=== PATIENT | female | born 1995 | race Caucasian/White ===

== ENCOUNTER 2024-01-22 09:50 | Outpatient (CLI) | payer MEDICAID, SELFPAY ==
[2024-01-22 18:24] LABS: Estradiol 69 pg/mL (See Note)
[2024-01-22 18:42] LABS: FSH 6.3 mIU/mL (See Note); Prolactin 7.9 ng/mL (See Note)
[2024-01-25 10:20] LABS: DHEA Sulfate 257 ug/dL (96-512)
[2024-01-25 19:39] LABS: Antimullerian Hormone 6.5 ng/mL (0.89-9.9)
[2024-01-29 12:36] LABS: Testosterone, Free 0.85 ng/dL (<0.13-1.06); Testosterone, Total 51 ng/dL (8-60)
== END 2024-01-22 09:51 | disposition home or self-care (01) ==
LOC: LBO 09:52
PROVIDERS: Visit Provider Obstetrics & Gynecology Gynecology
DX: N91.5 Oligomenorrhea, unspecified (principal); L68.0 Hirsutism
CPT/HCPCS: 36415; 82627; 84402; 84403; 82670; 83001; 83520; 84146; 84443

== ENCOUNTER 2024-08-24 05:02 | Outpatient (CLI) | payer MEDICAID, SELFPAY ==
[2024-08-24 15:09] LABS: Panorama Kit Sent via Fed Ex
[2024-08-24 15:25] LABS: Abs Immature Grans 0.03 10^3/uL (0.0-0.06); Absolute Basophil Count 0.02 10^3/uL (0.0-0.2); Absolute Eosinophil Count 0.22 10^3/uL (0.0-0.7); Absolute Lymphocyte Count 1.78 10^3/uL (1.2-3.4); Absolute Monocyte Count 0.48 10^3/uL (0.1-0.8); Absolute Neutrophil Count 5.99 10^3/uL (1.2-6.7); Basophils % 0.2 %; Eosinophils % 2.6 %; HGB 11.9 g/dL (11.2-15.7); Immature Grans % 0.4 %; Lymphocytes % 20.9 %; MCH 31.4 pg (27.0-33.0); MCV 92 fL (80-95); MPV 8.9 fL (8.0-11.0); Monocytes % 5.6 %; Neutrophils % 70.3 %; Platelet Count 257 10^3/uL (130-400); RBC 3.79 10^6/uL (3.93-5.22); RDW 12.2 % (11.7-14.6); RDW-SD 41.1 fL; WBC 8.52 10^3/uL (4.4-10.8)
[2024-08-24 23:04] LABS: Hepatitis B Surface Ag Negative (Negative)
[2024-08-24 23:36] LABS: HIV-1/2 Ag & Ab Screen Negative (Negative)
[2024-08-24 23:42] LABS: Hepatitis C Ab w Rflx HCV PCR Negative (Negative)
[2024-08-25 10:35] LABS: Varicella IgG Antibody Positive (See Note)
[2024-08-25 10:36] LABS: Rubella IgG Ab (UVM) Negative (See Note)
[2024-08-26 14:11] LABS: Syphilis IgG w/Reflex Nonreactive (Nonreactive)
== END 2024-08-24 05:03 | disposition home or self-care (01) ==
LOC: LBO 05:02
PROVIDERS: Visit Provider Advanced Practice Midwife
DX: Z34.91 Encounter for supervision of normal pregnancy, unspecified, first trimester (principal)
CPT/HCPCS: 36415; 86787; 86803; 86850; 86900; 86901; 87340; 87389; 85025; 86762; 86780

== ENCOUNTER 2024-08-24 14:55 | Outpatient (REF) | payer MEDICAID, SELFPAY ==
[2024-08-25 12:51] LABS: Chlamydia Result Negative (Negative); GC Result Negative (Negative)
== END 2024-08-24 14:56 | disposition home or self-care (01) ==
LOC: LBN 14:55
PROVIDERS: Visit Provider Advanced Practice Midwife
DX: Z34.81 Encounter for supervision of other normal pregnancy, first trimester (principal)
CPT/HCPCS: 87491; 87591

== ENCOUNTER 2024-09-06 00:52 | Outpatient (CLI) | payer MEDICAID, SELFPAY ==
--- NOTE | 2024-09-06 07:55 | DI.US_ITS ---
Exam(s) US OB F/U FACIAL/LVOT/RVOT EXAM: US OB F/U FACIAL/LVOT/RVOT CLINICAL HISTORY: , size greater than dates,z34.90. TECHNIQUE: Transabdominal obstetrical ultrasound performed. COMPARISON: US POCUS EXAM from 06/30/2024 US POCUS EXAM from 07/25/2024 FINDINGS:: Number of fetuses: 1 position: CEPHALIC Placental location: ANTERIOR No evidence of previa. BIOMETRIC DATA: BPD: 3.02cm, 15weeks 4days HC: 11.33cm, 15weeks 4days AC: 8.35cm, 14weeks 5days FL: 1.61cm, 14weeks 5days EFW: 107.1g, 0.24lb, 53% Composite Age: 15weeks 1day KRISTINE: 02[birth year]27[birth year]25 Heart Rate: 142bpm Amniotic fluid: Visually, amount of fluid is within normal limits. IMPRESSION: size and weight are within the expected range. DATA REPOSITORY:
== END 2024-09-06 01:12 ==
LOC: DI 00:52
PROVIDERS: Visit Provider Advanced Practice Midwife
DX: Z34.82 Encounter for supervision of other normal pregnancy, second trimester (principal); Z3A.15 15 weeks gestation of pregnancy
CPT/HCPCS: 76815

== ENCOUNTER 2024-09-09 02:33 | Outpatient (CLI) | payer MEDICAID, SELFPAY ==
--- OUTSIDE RECORDS SUMMARY | 2024-09-09 02:43 | XMS_ITS | Encounter Summary ---
Author Organization [facility] Address [address] [place] [address] Care Team Providers Care Printed Circuit Layout Taper Name Role Phone Unknown, Provider MD Primary Care Provider Tom Edwards MD Unavailable Unavailable Encounter Details Date Type Department Care Team (Late st Contact Info) Description 08/24/2024 Lab Requisition [facility] Pathology & Laboratory Medicine - [address] [address] Outr Resulting Lab, Provider Social History Tobacco Use Types Packs/Day Years Used Date Smoking Tobacco: Never Assessed Interpersonal Safety Answer Date Record ed Physically Hurt Never 06/14/2020 Verbally Threaten Not on file 06/14/2020 Sex and Gender Information Value Date Recorded Sex Assigned at Not on file Gender Identity Not on file Sexual Orientation Not on file documented as of this encounter Plan of Treatment Not on file documented as of this encounter Procedures Procedure Name Priority Date/Time Associated Diagnosis Comments RUBELLA IGG ANTIBODY Routine 08/24/2024 15:02 EDT VARICELLA IGG ANTIBODY Routine 08/24/2024 15:02 EDT documented in this encounter Results * VARICELLA IGG ANTIBODY (08/24/2024 15:02 EDT) Varicella IgG Ab Positive See Note 08/25/2024 10:29 EDT [facility] Comment:Presence of detectab le Varicella Zoster virus IgG antibodies. Blood VENOUS BLOOD / Unknown 08/24/2024 15:02 EDT 08/24/2024 21:52 EDT Provider Outr Resulting Lab IMMUNOLOGY A ND SEROLOGY ORDERABLES Performing Organization Address [facility] Co de Phone Number [facility] [address] [place], [place] [phone] * RUBELLA IGG ANTIBODY (08/24/2024 15:02 EDT) Rubella IgG Ab Negative See Note 08/25/2024 10:31 EDT [facility] Comment:Sample is considered negative for IgG antibodies to Rubella virus. A negative result presumes that immunity has not been acquired. If exposure to Rubella virus is suspected despite a negative finding, a second specimen should be collected and tested for Rubella IgG Ab one or two weeks later. Blood VENOUS BLOOD / Unknown 08/24/2024 15:02 EDT 08/24/2024 21:52 EDT Provider Outr Resulting Lab CHEMISTRY & BLOOD GAS ORDERABLES Performing Organization Address [facility] Co de Phone Number [facility] [address] [place], [place] [phone] documented in this encounter Visit Diagnoses Not on filedocumented in this encounter Care Teams Printed Circuit Layout Taper Relationship Specialty Start Date End Date Unknown, Provider, PCP - General 11/09/19 Tom Teague MD 11/09/19 documented as of this encounter
--- OUTSIDE RECORDS SUMMARY | 2024-09-09 02:43 | XMS_ITS | Encounter Summary ---
Author Organization [facility] Address [address] [place] [address] Care Team Providers Care Inserter Operator Name Role Phone Unknown, Provider MD Primary Care Provider Tom Edwards MD Unavailable Unavailable Encounter Details Date Type Department Care Team (Late st Contact Info) Description 08/24/2024 Lab Requisition [facility] Pathology & Laboratory Medicine - [address] [address] Outr Resulting Lab, Provider Social History Tobacco [...] Procedure Name Priority Date/Time Associated Diagnosis Comments CHLAMYDIA/N. GONORRHOEAE AMPLIFIED NUCLEIC ACID Routine 08/24/2024 14:20 EDT documented in this encounter Results * CHLAMYDIA/N. GONORRHOEAE AMPLIFIED NUCLEIC ACID (08/24/2024 14:20 EDT) Neisseria gonorrhoeae Result Negative Negative 08/25/2024 12:46 EDT [facility] Chlamydia trachomatis Result Negative Negative 08/25/2024 12:46 EDT [facility] Swab VAGINAL STRUCTURE / Unknown 08/24/2024 14:20 EDT 08/24/2024 23:31 EDT Provider Outr Resulting Lab MICROBIOLOGY - GENERAL ORDERABLES [facility] [address] [place] [address] documented in this encounter Visit Diagnoses Not on filedocumented in this encounter Care Teams Inserter Operator Relationship Specialty Start Date End Date Unknown, Provider, PCP - General 11/09/19 Tom Teague MD 11/09/19 documented as of this encounter
--- OUTSIDE RECORDS SUMMARY | 2024-09-09 02:43 | XMS_ITS | Encounter Summary ---
Author Organization [facility] Address [address] [place] [address] Care Team Providers Care Quahogger Name Role Phone Unknown, Provider Primary Care Provider Tom Edwards MD Unavailable Unavailable Encounter Details Date Type Department Care Team (Late st Contact Info) Description 06/11/2020 Lab Requisition [facility] Pathology & Laboratory Medicine - [facility] [address] [place] [address] Tom Busby MD [address] [place] [id number] Disorder of the skin and subcutaneous tissue, unspecified Social History Tobacco Use Types Packs/Day Years [...] Procedure Name Priority Date/Time Associated Diagnosis Comments SURGICAL PATHOLOGY Today 06/08/2020 16 :00 EDT documented in this encounter Results * SURGICAL PATHOLOGY (06/08/2020 16:00 EDT) Final Diagnosis A. SKIN OF SCALP, LEFT, EXCISION : - Lobular capillary hemangioma (pyogenic granuloma). [facility] Attestation By the signature below, the attending physician certifies that they have 1) personally conducted a gross and/or microscopic examination of the described specimen(s), and/or personally interpreted the results of laboratory testing of the described specimen(s), and 2) personally rendered or confirmed the above diagnosis. 06/13/2020 11:23 [facility] at 1123 Clinical History Disorder of the skin and subcutaneous tissue, unspecified, left scalp skin lesion 06/13/2020 11:23 [facility] Gross Description A. Received in formalin labelled with proper patient identification (initials D, S) and not otherwise specified is an unoriented elliptical excision of varma-white hair-bearing skin (1.0 x 0.7 cm, and is excised to a depth of 0.4 cm). There is a central white-bernal waxy rubbery papule (0.5 x 0.5 x 0.3 cm) located on the skin surface. The margins are inked blue. The tissue is quadrisected and entirely submitted as A1 tips, reverse en face and A2 central sections. Angela Muse 06/12/2020 8:37 06/13/2020 11:23 [facility] Performing Lab [facility] 06/13/2020 11:23 [facility] Scanned Images 06/13/2020 11:23 [facility] Tissue TISSUE SPECIMEN FROM SKIN / Unknown 06/08/2020 16:00 EDT 06/11/2020 23:05 EDT Tom Busby MD PATHOLOGY ASHLEY MARTINE[facility] [address] [place] [address] documented in this encounter Visit Diagnoses Diagnosis Disorder of the skin and subcutaneous tissue, unspecified documented in this encounter Care Teams Quahogger Relationship Specialty Start Date End Date Unknown, Provider, PCP - General 11/09/19 Tom Teague MD 11/09/19 documented as of this encounter
--- OUTSIDE RECORDS SUMMARY | 2024-09-09 02:43 | XMS_ITS | Encounter Summary ---
Author Organization [facility] Address [address] [place] [address] Care Team Providers Care Spooling Operator Name Role Phone Unknown, Provider MD Primary Care Provider Tom Edwards MD Unavailable Unavailable Encounter Details Date Type Department Care Team (Late st Contact Info) Description 02/18/2023 Lab Requisition [facility] Pathology & Laboratory Medicine - [address] [address] Outr Resulting Lab, Provider Social History Tobacco [...] Procedure Name Priority Date/Time Associated Diagnosis Comments MOLECULAR VAGINITIS/VAGINOSIS ASSAY Routine 02/18/2023 17:35 EDT documented in this encounter Results * (ABNORMAL) MOLECULAR VAGINITIS/VAGINOSIS ASSAY (02/18/2023 17:35 EDT) Alysha Species Positive(A) Negative 02/20/20 13:07 EDT [facility] Alysha glabrata Negative Negative 02/19/2023 13:07 EDT [facility] Trichomonas Vaginalis Negative Negative 02/19/2023 13:07 EDT [facility] BV (Bacterial vaginosis) Positive(A) Negative 02/19/2023 13:07 EDT [facility] Swab ENTIRE VAGINA / Unknown 02/18/2023 17:35 EDT 02/18/2023 22:51 EDT Provider Outr Resulting Lab MICROBIOLOGY - GENERAL ORDERABLES Performing Organization Address City/State/[facility] Co de Phone Number [facility] [address] [place] [address] documented in this encounter Visit Diagnoses Not on filedocumented in this encounter Care Teams Spooling Operator Relationship Specialty Start Date End Date Unknown, Provider, PCP - General 11/09/19 Tom Teague MD 11/09/19 documented as of this encounter
--- OUTSIDE RECORDS SUMMARY | 2024-09-09 02:43 | XMS_ITS | Encounter Summary ---
Author Organization [facility] Address [address] [place] [address] Care Team Providers Care Tiedown Operator Name Role Phone Unknown, Provider MD Primary Care Provider Tom Edwards MD Unavailable Unavailable Encounter Details Date Type Department Care Team (Late st Contact Info) Description 02/26/2021 Lab Requisition [facility] Pathology & Laboratory Medicine - [address] [address] Outr Resulting Lab, Provider Social History Tobacco [...] Procedure Name Priority Date/Time Associated Diagnosis Comments ZZCOVID-19 TEST [facility] PCR Today 02/26/2021 10:22 EDT COVID-19 TESTING Routine 02/26/2021 10:2 2 EDT documented in this encounter Results * COVID-19 TEST [facility] PCR (02/26/2021 10:22 EDT) Swab ENTIRE NASOPHARYNX / Unknown 02/26/2021 10:22 EDT 02/26/2021 16:21 EDT Provider Outr Resulting Lab MICROBIOLOGY - GENERAL ORDERABLES [facility] [address] [place] [address] * COVID-19 TESTING (02/26/2021 10:22 EDT) COVID-19 rt-PCR Result Negative Negative 02/27/2021 12:45 EDT [facility] Comment: This test has not been FDA cleared or approved. This test has been authorized by FDA under an EUA for use by authorized laboratories. This test has been authorized only for detection of nucleic acid from 2019-nCoV, not for any other viruses or pathogens. This test is only authorized for the duration of the declaration that circumstances exist justifying the authorization of emergency use of in vitro diagnostic tests for detection and/or diagnosis of 2019-nCoV under section 564(b)(1) of Act, 21 U.S.C ?? 360bbb-3(b) (1), unless the authorization is terminated or revoked sooner. Negative results do not preclude 2019-nCoV infection and should not be used as the sole basis for treatment or other patient management decisions. Negative results must be combined with clinical observations, patient history, and epidemiological information. Testing was performed using the matheus SARS-CoV-2 assay (Sara Wuhan [employer] on the Matheus 6800 System Performing Lab [facility]us 68[address] [facility] 02/27/2021 12:45 EDT [facility] Swab 02/26/2021 10:2 2 EDT 02/26/2021 16:21 EDT Provider Outr Resulting Lab MICROBIOLOGY - GENERAL ORDERABLES [facility] [address] [place] [address] documented in this encounter Visit Diagnoses Not on filedocumented in this encounter Care Teams Tiedown Operator Relationship Specialty Start Date End Date Unknown, Provider, PCP - General 11/09/19 Tom Teague MD 11/09/19 documented as of this encounter
--- OUTSIDE RECORDS SUMMARY | 2024-09-09 02:43 | XMS_ITS | Encounter Summary ---
Author Organization [facility] Address [address] [place] [address] Care Team Providers Care Kerrick Kleaner Operator Name Role Phone Unknown, Provider MD Primary Care Provider Tom Edwards MD Unavailable Unavailable Encounter Details Date Type Department Care Team (Late st Contact Info) Description 08/24/2024 Lab Requisition [facility] Pathology & Laboratory Medicine - [address] [address] Outr Resulting Lab, Provider Social History Tobacco [...] Procedure Name Priority Date/Time Associated Diagnosis Comments HEPATITIS C AB W REFLEX TO HCV RNA BY PCR Routine 08/24/2024 15:02 EDT HEPATITIS B SURFACE ANTIGEN Routine 08/24/2024 15:02 EDT documented in this encounter Results * HEPATITIS B SURFACE ANTIGEN (08/24/2024 15:02 EDT) Hep B Surface Ag Negative Negative 08/24/2024 22:58 EDT [facility] Blood VENOUS BLOOD / Unknown 08/24/2024 15:02 EDT 08/24/2024 21:52 EDT Provider Outr Resulting Lab CHEMISTRY & BLOOD GAS ORDERABLES Performing Organization Address City/[facility]/ZIP Co de Phone Number [facility] [address] [place], [place] [phone] * HEPATITIS C AB W REFLEX TO HCV RNA BY PCR (08/24/2024 15:02 EDT) Hep C Antibody Negative Negative 08/24/2024 23:38 EDT [facility] Blood VENOUS BLOOD / Unknown 08/24/2024 15:02 EDT 08/24/2024 21:52 EDT Provider Outr Resulting Lab CHEMISTRY & BLOOD GAS ORDERABLES Performing Organization Address City/[facility] Co de Phone Number [facility] [address] [place] [address] documented in this encounter Visit Diagnoses Not on filedocumented in this encounter Care Teams Kerrick Kleaner Operator Relationship Specialty Start Date End Date Unknown, Provider, PCP - General 11/09/19 Tom Teague MD 11/09/19 documented as of this encounter
--- OUTSIDE RECORDS SUMMARY | 2024-09-09 02:43 | XMS_ITS | Encounter Summary ---
Author Organization [facility] Address [address] [place] [address] Care Team Providers Care Proof Machine Operator Name Role Phone Unknown, Provider MD Primary Care Provider Tom Edwards MD Unavailable Unavailable Encounter Details Date Type Department Care Team (Late st Contact Info) Description 10/15/2021 Lab Requisition [facility] Pathology & Laboratory Medicine - [address] [address] Outr Resulting Lab, Provider Social History Tobacco [...] Comments ZZCOVID-19 TEST [facility] PCR Today 10/15/2021 13:36 EST COVID-19 TESTING Routine 10/15/2021 13:3 6 EST documented in this encounter Results * COVID-19 TEST [facility] PCR (10/15/2021 13:36 EST) Swab 10/15/2021 13:3 6 EST 10/15/2021 20:54 EST Provider Outr Resulting Lab MICROBIOLOGY - GENERAL ORDERABLES Performing Organization Address [facility] Co de Phone Number [facility] [address] [place] [address] * COVID-19 TESTING (10/15/2021 13:36 EST) COVID-19 rt-PCR Result Negative Negative 10/16/2021 15:[address] [facility] Comment: This test has [...] clinical observations, patient history, and epidemiological information. This test was developed and its performance characteristics determined by [facility]. It has not been cleared or approved by the US Food and Drug Administration. FDA does not require this test to go through premarket FDA review. This test is used for clinical purposes. It should not be regarded as investigational or for research. This laboratory is certified under the Clinical Laboratory Improvement Amendments (CLIA) as qualified to perform high complexity clinical laboratory testing. This test is based on the [facility] COVID-19 Emergency Use Authorization (EUA) assay, with minor modification as defined by the FDA Performed on the [employer] 7 Flex RT-PCR System. Performing Lab [facility] 10/16/2021 15:[address] [facility] Swab 10/15/2021 13:3 6 EST 10/15/2021 20:54 EST Provider Outr Resulting Lab MICROBIOLOGY - GENERAL ORDERABLES Performing Organization Address [facility]/ZIP Co de Phone Number [facility] [address] [place] [address] documented in this encounter Visit Diagnoses Not on filedocumented in this encounter Care Teams Proof Machine Operator Relationship Specialty Start Date End Date Unknown, Provider, PCP - General 11/09/19 Tom Teague MD 11/09/19 documented as of this encounter
--- OUTSIDE RECORDS SUMMARY | 2024-09-09 02:43 | XMS_ITS | Encounter Summary ---
Author Organization [facility] Address [address] [place] [address] Care Team Providers Care Vessel Operator Name Role Phone Unknown, Provider MD Primary Care Provider Tom Edwards MD Unavailable Unavailable Encounter Details Date Type Department Care Team (Late st Contact Info) Description 12/29/2019 Lab Requisition [facility] Pathology & Laboratory Medicine - [facility] [address] [place] [address] Unknown, Provider, Social History Tobacco Use Types Packs/Day Years Used Date Smoking Tobacco: Never Assessed Sex and Gender Information Value Date Recorded Sex Assigned at Not on file Gender Identity Not on file Sexual Orientation Not on file documented as of this encounter Plan of Treatment Not on file documented as of this encounter Procedures Procedure Name Priority Date/Time Associated Diagnosis Comments CHLAMYDIA/N. GONORRHOEAE AMPLIFIED NUCLEIC ACID Routine 12/29/2019 17:40 EST documented in this encounter Results * CHLAMYDIA/N. GONORRHOEAE AMPLIFIED RNA (12/29/2019 17:40 EST) Neisseria gonorrhoeae Result Negative Negative 12/30/2019 13:26 EST [facility] Chlamydia trachomatis Result Negative Negative 12/30/2019 13:26 EST [facility] Swab ENTIRE VAGINA / Unknown 12/29/2019 17:40 EST 12/29/2019 21:43 EST Provider Unknown MICROBIOLOGY - GENER AL ORDERABLES [facility] [address] [place] [address] documented in this encounter Visit Diagnoses Not on filedocumented in this encounter Care Teams Vessel Operator Relationship Specialty Start Date End Date Unknown, Provider, PCP - General 11/09/19 Tom Teague MD 11/09/19 documented as of this encounter
--- OUTSIDE RECORDS SUMMARY | 2024-09-09 02:43 | XMS_ITS | Encounter Summary ---
Author Organization [facility] Address [address] [place] [address] Care Team Providers Care Production Dispatcher Name Role Phone Unknown, Provider Primary Care Provider Tom Edwards MD Unavailable Unavailable Encounter Details Date Type Department Care Team (Late st Contact Info) Description 08/24/2024 Lab Requisition [facility] Pathology & Laboratory Medicine - [address] [address] Outr Resulting Lab, Provider Social History Tobacco [...] Procedure Name Priority Date/Time Associated Diagnosis Comments HIV 1/2 ANTIGEN AND ANTIBODY, 4TH GENERATION Routine 08/24/2024 15:02 EDT documented in this encounter Results * HIV 1/2 ANTIGEN AND ANTIBODY, 4TH GENERATION (08/24/2024 15:02 EDT) HIV 1 and 2 Antibody/p24 Antigen, 4th Generation Negative Negative 08/24/2024 23:31 EDT [facility] Comment:If acute HIV-1 infec tion is suspected in a high risk patient, submit plasma specimen for HIV-1 RNA quantitation test. Blood VENOUS BLOOD / Unknown 08/24/2024 15:02 EDT 08/24/2024 21:52 EDT Narrative [facility] - 08/24/2024 23:31 EDT Fourth Generation assay performed on the Siemens Aiotraaur XPT. Provider Outr Resulting Lab IMMUNOLOGY A ND SEROLOGY ORDERABLES [facility] [address] [place], [place] [phone] documented in this encounter Visit Diagnoses Not on filedocumented in this encounter Care Teams Production Dispatcher Relationship Specialty Start Date End Date Unknown, Provider, PCP - General 11/09/19 Tom Teague MD 11/09/19 documented as of this encounter
--- OUTSIDE RECORDS SUMMARY | 2024-09-09 02:43 | XMS_ITS | Continuity of Care Document ---
Author Name [facility] Organization [facility] Care Team Providers Care Library Science Instructor Name Role Phone [facility] Unavailable Unavailable Problems Combined list of problems from Department of Defense and Veterans Affairs facilities. It does not include entries that were removed or entered in error. Problem Status Onset Date Problem Type Date of Resolution Comme nts Source oligomenorrhea Active Condition DoD Allergies, Adverse Reactions, Alerts Combined list of allergies from Department of Defense and Veterans Affairs facilities. It does not include entries that were removed or entered in error. Substance Category Reaction Severity Reaction type Status Date Reported Comments Source amoxicillin Propensity to adverse reactions to substance Rash Active [facility] AMOXICILLIN (AMOXICILLIN) Drug allergy (disorder) Rash active 5 [facility] [place] penicillins Propensity to adverse reactions to substance Rash Active 5 [facility] PENICILLINS {Cla } Drug allergy (disorder) Rash active 5 [facility] [place] SULFA (SULFONAMIDE ANTIBIOTICS) {Cla } Drug allergy (disorder) Rash active 5 [facility] [place] sulfonamides Propensity to adverse reactions to substance Rash Active 5 [facility] Immunizations Combined list of available immunizations from the Department of Defense and Veterans Affairs facilities. Immunization Series Date Given Administered By Site Reaction Lot Number CVX Code Drug Roof Foreman Status Comments Source influenza,tri valent, recombinant, inj-pf 2015 zBentley ht Arm [id number] Seqirus complet ed influenza ,trivalen t, recombina nt, inj-pf 09/30/16 Given Ambulat ory Pharmac y tetanus, diphtheria, acellular pertu is 2015 Yareli t Arm [id number] 115 [facility] ne complet ed tetanus, diphtheri a, acellular pertussis 09/30/16 Given Ambulat ory Pharmac y tetanus toxoid, reduced diphtheria toxoid, and acellular pertu is vaccine, adsorbed 0 2015 NIEVES EMERSON [id number] [facility] Smith[employer]line (SKB) complet ed tetanus toxoid, reduced diphtheri a toxoid, and acellular pertussis vaccine, adsorbed DoD Seasonal, trivalent, recombinant, injectable influenza vaccine, preservative free 0 2015 NIEVES EMERSON [id number] Seqirus (SEQ) complet ed Seasonal, trivalent , recombina nt, injectabl e influenza vaccine, preservat susannah free DoD Vital Signs Combined list of inpatient and outpatient Vital Signs from Department of Defense and Veterans Affairs, ranging from 12 months to all on record, depending upon the facility. Vital Sign Value Date Comments Source No data available for this section Ambulatory Pharmacy Encounters Combined list of: 1) Encounters from Department of Veterans Affairs facilities going back up to thelast 18 months. 2) Encounters from the Department of Defense facilities going back up to 280 months. Location Location Details Encounter Type Encounter Number Reason For Visit Attending Provider ADM Date DC Date Status Disposition Source [facility] [place]iel [place] OUTPATIENT [id number] [facility] Jose [facility] DODIE BERNSTEIN 02/13 Released w/o Limitations [facility] [place] [facility] [place] TELE CONSULT [id number] Notes Entered by: Puneet MORALEZ 30 Apr 2015 1021 ------- ------- ------- ------- -- [facility] Bernstein/ [facility] DODIE BERNSTEIN 04/30 [facility] [place]) OUTPATIENT [id number] [facility] Jose/i rregula r juan jos[facility] DODIE BERNSTEIN 05/08 Released w/o Limitations [facility] [place] [facility] [place] TELE CONSULT [id number] Notes Entered by: Maira NICHOLS 17 May 2015 1302 ------- ------- ------- ------- -- [facility] Valdez 05/17 Referred for Appointment [facility] [place] [facility] [place] Talent Acquisition Partner at [facility]) OUTPATIENT [id number] The time between periods has increas ed (oligom enorrhe a) TORI MASON T 05/25 Released w/o Limitations [facility] [place] at [facility]) [facility] [place]quisition Partner at [facility]) OUTPATIENT [id number] 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 TORI MASON T 06/26 Released w/o Limitations [facility] [place] at [facility]) [facility] [place] at [facility]) OUTPATIENT [id number] 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 TORI MASON T 07/26 Released w/o Limitations [facility] [place] at [facility]) [facility] [place] Partner at [facility]) TELE CONSULT [id number] Notes Entered by: DELMI NATARAJAN 01 Aug 2015 0839 ------- ------- ------- ------- -- current medicat ion ineffec tive TORI MASON T 08/01 [facility] [place]) [facility] [place] Partner at [facility]) OUTPATIENT [id number] follow up regional agronomist MICHAEL GOMEZ O 08/30 Released w/o Limitations [facility] [place] at [facility]) [facility] [place] Acquisition Partner at [facility]) TELE CONSULT [id number] Notes Entered by: FRANK MOORE 10 Sep 2015 0749 ------- ------- ------- ------- -- request ing medicat MICHAEL Clay O 09/10 [place]quisition Partner at [facility]) [place] Partner at [facility]) OUTPATIENT [id number] 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 MICHAEL GOMEZ O 12/06 Released w/o Limitations [place]) [place] TELE CONSULT [id number] Notes Entered by: Bisi TOVAR 31 Jan 2016 0813 ------- ------- ------- ------- -- [facility] LAVON NICHOLS S 01/30 Referred for Appointment [place] TELE CONSULT [id number] Notes Entered by: SUPA SUTTON 31 Jan 2016 1052 ------- ------- ------- ------- -- patient needs an updated referra l for ongoing care with the ob clinic at [facility]. LAVON NICHOLS S 01/30 Referred for Appointment [place] at [facility]) OUTPATIENT [id number] 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 - inferti MICHAEL Christianson O 02/07 Released w/o Limitations [facility] [place]) [facility] [place]quisition Partner at [facility]) OUTPATIENT [id number] MICHAEL RAZA O 02/13 Released w/o Limitations [place]quisition Partner at [facility]) [place] Partner at [facility]) OUTPATIENT [id number] ultraso und (book per Richy de luna) MICHAEL GOMEZ 02/27 Released w/o Limitations [place]) [place] TELE CONSULT [id number] Notes Entered by: MAURA BERRIOS 24 Mar 2016 0750 ------- ------- ------- ------- -- PCM:MARNIE BARRIENTOS Pt called request [facility] labs to confirm pregnan cy. LAVON NICHOLS 03/24 Referred for Appointment [place] F01A Red) [place] F01A Red) TELE CONSULT [id number] Notes Entered by: Miya BERNSTEIN 25 Mar 2016 1800 ------- ------- ------- ------- -- LAB CARLA MORALEZ 03/25 Immediate Referral [place] F01A Red) [place]quisition Partner at [facility]) TELE CONSULT [id number] Notes Entered by: Ervin BROWNLEE 27 Mar 2016 0837 ------- ------- ------- ------- -- appt to [facility] HO BROWNLEE 03/27 Referred for Appointment [place]) [place] Acquisition Partner at [facility]) TELE CONSULT [id number] Notes Entered by: Valdez KULKARNI 28 Mar 2016 1840 ------- ------- ------- ------- -- vag bleedin g had positiv e hcg on clomid and progest erone. KECIA KULKARNI 03/28 [place]) [place] Talent Acquisition Partner at [facility]) OUTPATIENT [id number] follow up ER-sab (stefan Santana) USMAN Lyon 04/01 Released w/o Limitations [place]) [place] Partner at [facility]) OUTPATIENT [id number] NIKHIL cheung - discuss next step MICHAEL GOMEZ 04/30 Released w/o Limitations [place]) [place] TELE CONSULT [id number] Notes Entered by: PARAM CEJA RA 14 May 2016 0922 ------- ------- ------- ------- -- Pcm Bernstein- pregnan cy test request CARLA MORALEZ 05/14 Other Not Elsewhere Classified [place] TELE CONSULT [id number] Notes Entered by: Nito GRAMAJO 14 May 2016 1205 ------- ------- ------- ------- -- lab LAVON NICHOLS 05/14 Referred for Appointment [place] TELE CONSULT [id number] Notes Entered by: Nito GRAMAJO 14 May 2016 1231 ------- ------- ------- ------- -- lab LAVON NICHOLS 05/14 Referred for Appointment [place] at [facility]) TELE CONSULT [id number] Notes Entered by: KEMErvin MISHRA 16 May 2016 1316 ------- ------- ------- ------- -- appt to [facility] HO BROWNLEE 05/16 Referred for Appointment [facility] [place]iel [place]([facility] Talent Acquisition Partner at [facility]) [facility] [place] [facility]) OUTPATIENT [id number] [facility] u/s TIM DESAI 05/22 Released w/o Limitations [facility] [place]iel [place] [facility] [place]aniel [place]([facility] Talent Acquisition Partner at [facility]) OUTPATIENT [id number] ob reg HO BROWNLEE 06/03 Released with Work/Duty Limitations [facility] ROB Esparza([facility] Talent Acquisition Partner at [facility] [place]cdaniel [place]([facility] Talent Acquisition Partner at [facility]) OUTPATIENT [id number] New OB TIM DESAI 06/10 Released w/o Limitations [facility] ROB Esparza([employer] Talent Acquisition Partner at [facility]) [facility] [place]cdaniel [place]([facility] Talent Acquisition Partner at [facility]) TELE CONSULT [id number] Notes Entered by: FRANK DESAI 20 Jun 2016 1244 ------- ------- ------- ------- -- results TIM DESAI 06/20 [facility] MAUREENC ROB Esparza([facility] Talent Acquisition Partner at [facility]) [facility] Sandra [place]cdaniel [place]([facility] Talent Acquisition Partner at [facility]) OUTPATIENT [id number] 14 weeks TIM BARRERA 07/09 Released w/o Limitations [facility] ROB Esparza([place] [facility]) [facility] [place] [facility] Partner at [facility]) TELE CONSULT [id number] Notes Entered by: Bisi GAN 01 Aug 2016 1320 ------- ------- ------- ------- -- pap results ARMANDO MARY ELLEN M 08/01 Referred for Appointment [place]) [facility] [place] TELE CONSULT [id number] Notes Entered by: Wen NAGY 14 Aug 2016 0754 ------- ------- ------- ------- -- Transfe r In GARLAND RODRIGUEZ 08/14 [facility] [place] [facility] [place] OUTPATIENT [id number] intake/ transfe r kristine FEB advised of paper work GERALDO MASON 08/21 Released w/o Limitations [facility] [place] [facility] [place] [place] [place] OUTPATIENT [id number] NOB transfe r in KRISTINE Dec 26 NIEVES LAO 08/21 Released w/o Limitations [facility] [place] [facility] [place] [place] OUTPATIENT [id number] GRP:EDC :DEC NIEVES LAO 09/02 Released w/o Limitations [facility] [place] [facility] [place] [place] OUTPATIENT [id number] GRP:EDC :B NIEVES LAO 09/24 Released w/o Limitations [facility] [place] [facility] [place] [place] OUTPATIENT [id number] GRP:EDC :B MARY MEDINA 10/24 Released w/o Limitations [facility] [place] [facility] [place] OUTPATIENT [id number] Notes Entered by: CHARLA GOYAL 17 Nov 2016 1302 ------- ------- ------- ------- -- IUP @ 33+3 weeks for decreas ed movemen HOWARD Everett 11/17 Released w/o Limitations [facility] [place] [facility] [place] [place] OUTPATIENT [id number] GRP:EDC :DEC NIEVES LAO 11/23 Released w/o Limitations [facility] [place] [facility] [place] [place] OUTPATIENT [id number] GRP:EDC :DEC NIEVES LAO 12/01 Released w/o Limitations [facility] [place] [facility] [place] [place] OUTPATIENT [id number] Notes Entered by: Puneet MUSE 10 Dec 2016 1207 ------- ------- ------- ------- -- Breech present ation. [facility] ical consult ADITYA Schofield 12/10 Released w/o Limitations [facility] [place] [facility] [place] OUTPATIENT [id number] ADITYA Maya 12/12 Released w/o Limitations [facility] [place] [facility] [place] [place] OUTPATIENT [id number] GRP:EDC :DEC NIEVES LAO 12/16 Released w/o Limitations [facility] [place] [facility] [place] F01[place] 2[place] OUTPATIENT [id number] obgyn dep ed TIM SILVA 12/16 Released w/o Limitations [facility] [place] F01[place] [facility] 2[place] [facility] [place] [place] OUTPATIENT [id number] 38 wk mesfin clark kimberly cancell ed, need KASIA LEBLANC 12/24 Released w/o Limitations [facility] [place] [facility] [place] OUTPATIENT [id number] 39WK YOHANNES MARIANO 12/30 Released w/o Limitations [facility] [place] [facility] [place] DIRECT TO [facility] FROM OTHER THAN ER OR APU [id number] EMA MARTIN 01/01 DISCHARGED HOME [facility] [place] OUTPATIENT [id number] RED ITCHY RASH ON BELLY 13 DAYS POST MARY MEDINA 01/14 Released w/o Limitations [place] Procedures Combined list of: 1) Procedures from Department of Veterans Affairs facilities [facility], not all [place] non-surgical procedures are included; 2) All procedures from the Department of Defense facilities. Procedure Procedure Type Code Date Perfomer Comments Sourc e No data available for this section Ambulato ry Pharmacy REPAIR PERINEUM SKIN, EXTERNAL APPROACH 01/03 [facility] DRAINAGE OF AMNIOTIC FLUID, THERAPEUTIC FROM PRODUCTS OF CONCEPTION, VIA NATURAL OR ARTIFICIAL OPENING 01/03 [facility] DELIVERY OF PRODUCTS OF CONCEPTION, EXTERNAL APPROACH 01/03 [facility]D POSTOPERATIVE FOLLOW-UP VISIT, NORMALLY INCLUDED IN THE SURGICAL PACKAGE, INDICATE THAT EVALUATION & MANAGEMENT SERVICE WAS PERFORMED DURING A POSTOPERATIVE PERIOD REASON RELATED ORIGINAL PROCEDURE 01/03 [facility] POSTOPERATIVE FOLLOW-UP VISIT, NORMALLY INCLUDED IN THE SURGICAL PACKAGE, INDICATE THAT EVALUATION & MANAGEMENT SERVICE WAS PERFORMED DURING A POSTOPERATIVE PERIOD REASON RELATED ORIGINAL PROCEDURE 01/02 [facility] VAGINAL DELIVERY ONLY (WITH OR WITHOUT EPISIOTOMY AND/OR FORCEPS); 01/01 [facility]D NON-STRESS TEST 12/31 [facility] SUBSEQ CARE VISIT () [EXCLS:PATIENTS WHO ARE SEEN FOR A CONDITION UNREL TO / CARE (EG,AN UP RESPIR INFECT;PATIENTS SEEN FOR CONSULTATION ONLY,NOT FOR CONT CARE)] 12/30 [facility] ULTRASOUND, UTERUS, REAL TIME WITH IMAGE DOCUMENTATION, LIMITED (EG, HEART BEAT, PLACENTAL LOCATION, POSITION AND/OR QUALITATIVE AMNIOTIC FLUID VOLUME), 1 OR MORE FETUSES 12/24 [facility] HEALTH AND BEHAVIOR INTERVENTION, EACH 15 MINUTES, [id number]; GROUP (2 OR MORE PATIENTS) 12/16 [facility] SUBSEQ CARE VISIT () [EXCLS:PATIENTS WHO ARE SEEN FOR A CONDITION UNREL TO / CARE (EG,AN UP RESPIR INFECT;PATIENTS SEEN FOR CONSULTATION ONLY,NOT FOR CONT CARE)] 12/16 [facility] ULTRASOUND, UTERUS, REAL TIME WITH IMAGE DOCUMENTATION, LIMITED (EG, HEART BEAT, PLACENTAL LOCATION, POSITION AND/OR QUALITATIVE AMNIOTIC FLUID VOLUME), 1 OR MORE FETUSES 12/12 [facility] EXTERNAL CEPHALIC VERSION, WITH OR WITHOUT TOCOLYSIS 12/11 [facility] ULTRASOUND, UTERUS, REAL TIME WITH IMAGE DOCUMENTATION, LIMITED (EG, HEART BEAT, PLACENTAL LOCATION, POSITION AND/OR QUALITATIVE AMNIOTIC FLUID VOLUME), 1 OR MORE FETUSES 12/10 [facility] SUBSEQ CARE VISIT () [EXCLS:PATIENTS WHO ARE SEEN FOR A CONDITION UNREL TO / CARE (EG,AN UP RESPIR INFECT;PATIENTS SEEN FOR CONSULTATION ONLY,NOT FOR CONT CARE)] 12/09 [facility] SUBSEQ CARE VISIT () [EXCLS:PATIENTS WHO ARE SEEN FOR A CONDITION UNREL TO / CARE (EG,AN UP RESPIR INFECT;PATIENTS SEEN FOR CONSULTATION ONLY,NOT FOR CONT CARE)] 11/25 [facility] NON-STRESS TEST 11/17 [facility] EDUCATIONAL SUPPLIES, SUCH BOOKS, TAPES, AND PAMPHLETS, FOR THE PATIENT'S EDUCATION AT COST TO PHYSICIAN OR OTHER QUALIFIED HEALTH ENGINE TESTER 10/28 [facility] INFLUENZA VIRUS VACCINE, TRIVALENT (IIV3), SPLIT VIRUS, PRESERVATIVE FREE, 0.5 ML DOSAGE, FOR INTRAMUSCULAR USE 09/30 [facility] SUBSEQ CARE VISIT () [EXCLS:PATIENTS WHO ARE SEEN FOR A CONDITION UNREL TO / CARE (EG,AN UP RESPIR INFECT;PATIENTS SEEN FOR CONSULTATION ONLY,NOT FOR CONT CARE)] 09/02 [facility] INITIAL CARE VISIT (REPORT AT 1ST ENCOUN W HEALTH ENGINE TESTER PROVIDING OBSTETRIC CARE. REPORT ALSO DATE OF VISIT &,IN A SEPARATE FIELD,THE DATE OF THE LAST MENSTRUAL PERIOD) 08/21 [facility] PATIENT EDUCATION, NOT OTHERWISE CLASSIFIED, NON-PHYSICIAN PROVIDER, INDIVIDUAL, PER SESSION 08/21 [facility] SUBSEQ CARE VISIT () [EXCLS:PATIENTS WHO ARE SEEN FOR A CONDITION UNREL TO / CARE (EG,AN UP RESPIR INFECT;PATIENTS SEEN FOR CONSULTATION ONLY,NOT FOR CONT CARE)] 07/09 [facility] SCREENING PAPANICOLAOU SMEAR; OBTAINING, PREPARING AND CONVEYANCE OF CERVICAL OR VAGINAL SMEAR TO LABORATORY 06/10 [facility] EDUCATIONAL SUPPLIES, SUCH BOOKS, TAPES, AND PAMPHLETS, FOR THE PATIENT'S EDUCATION AT COST TO PHYSICIAN OR OTHER QUALIFIED HEALTH ENGINE TESTER 06/03 [facility] ULTRASOUND, UTERUS, REAL TIME WITH IMAGE DOCUMENTATION,TRANSV AGINAL 05/22 DoD TELE ASSESS & MGT SRV PROV QUAL NONPHYS HLTH CARE PRO TO EST PAT,PARENT,GUARD NOT ORIG REL ASSESS & MGT SRV PROV W/IN PREV 7 DAYS NOR LEAD ASSESS & MGT SRV/PX W/IN NXT 24 HR/SOON APT;5-10 MIN MED DIS 05/14 DoD TELE ASSESS & MGT SRV PROV QUAL NONPHYS HLTH CARE PRO TO EST PAT,PARENT,GUARD NOT ORIG REL ASSESS & MGT SRV PROV W/IN PREV 7 DAYS NOR LEAD ASSESS & MGT SRV/PX W/IN NXT 24 HR/SOON APT;5-10 MIN MED DIS 03/25 DoD TELE ASSESS & MGT SRV PROV QUAL NONPHYS HLTH CARE PRO TO EST PAT,PARENT,GUARD NOT ORIG REL ASSESS & MGT SRV PROV W/IN PREV 7 DAYS NOR LEAD ASSESS & MGT SRV/PX W/IN NXT 24 HR/SOON APT;5-10 MIN MED DIS 03/24 [facility] ULTRASOUND, TRANSVAGINAL 02/27 [facility] CATHETERIZATION AND INTRODUCTION OF SALINE OR CONTRAST MATERIAL FOR SALINE INFUSION SONOHYSTEROGRAPHY (SIS) OR HYSTEROSALPINGOGRAPH Y 02/13 Do[facility] TELE ASSESS & MGT SRV PROV QUAL NONPHYS HLTH CARE PRO TO EST PAT,PARENT,GUARD NOT ORIG REL ASSESS & MGT SRV PROV W/IN PREV 7 DAYS NOR LEAD ASSESS & MGT SRV/PX W/IN NXT 24 HR/SOON APT;5-10 MIN MED DIS 01/30 DoD ONLINE ASSESS &MANAG SERV PROVIDE,A QUAL NONPHYS HCP TO AN ESTABLISHED PAT/GUARDIAN,NOT ORIGINAT FRM RELAT ASSESS &MANAG SERV PROVIDE W/IN THE PREV 7 DAYS,USE THE INTERNET/SIMILAR [employer] COMM NETWORK 01/30 [facility] ONLINE ASSESS &MANAG SERV PROVIDE,A QUAL NONPHYS HCP TO AN ESTABLISHED PAT/GUARDIAN,NOT ORIGINAT FRM RELAT ASSESS &MANAG SERV PROVIDE W/IN THE PREV 7 DAYS,USE THE INTERNET/SIMILAR ELECT COMM NETWORK 04/30 [facility] OB Services Antepartum Care Only Subsequent Single Visit OB Services Antepartum Care Only Subsequent Single Visit 0502F 12/30 YOHANNES CHOI [facility] Ultrasound Obstetric Limited Evaluation Ultrasound Obstetric Limited Evaluation 87141 12/25 KASIA LEBLANCLE [facility] OB Services Antepartum Care Only Subsequent Single Visit OB Services Antepartum Care Only Subsequent Single Visit 050F 12/25 KASIA LEBLANCLE [facility] OB Services Antepartum Care Only Subsequent Single Visit OB Services Antepartum Care Only Subsequent Single Visit 0502F 12/16 NIEVES LAO [facility] Health And Behav Intervention, Each Additional 15 Min Grp (2 Or More) Health And Behav Intervention, Each Additional 15 Min Grp (2 Or More) [id number] 12/16 TIM SILVA [facility] Ultrasound Obstetric Limited Evaluation Ultrasound Obstetric Limited Evaluation [id number] 12/12 [place] Patient informed of limitations of bedside ultrasound. Patient verbalize understanding. positive cadiac activity cephalic anterior placenta munoz amniotic fluid index: 14.53 [facility] Non-Stre Test (___ 0,2) Non-Stress Test (___ 0,2) 66166 12/12 [place] reactive NST, baseline = 135, moderate variablity, multiple accelerations to 150, no decelerations, positive movement, no contractions noted. Patient denies any complaints at this time. next OB appointment 16 Dec 2016 Patient discharged with kick counts instructions and signs and symptoms of labor. Patient verbalize understanding. [facility] Ultrasound Obstetric Limited Evaluation Ultrasound Obstetric Limited Evaluation [id number] 12/10 ADITYA MUSE [facility] OB Services Antepartum Care Only Subsequent Single Visit OB Services Antepartum Care Only Subsequent Single Visit 0502F 12/09 NIEVES LAO OB Services Antepartum Care Only Subsequent Single Visit OB Services Antepartum Care Only Subsequent Single Visit 0502F 11/25 NIEVES LAO [facility] Non-Stre Test (___ 0,2) Non-Stress Test (___ 0,2) 06981 11/17 CHARLA GOYAL Reactive NST, baseline 130 , accels present, no decels noted. +FM no uc's noted Next OB appt: Nov Pt sent home with labor precautions and kick counts. Pt was reassured of movement. Pt instructed to return immediately if she has anymore decreased movement. [facility] Physician Supervised Services Provision Of Educational Supplies Physician Supervised Services Provision Of Educational Supplies 80951 10/28 MARY MEDINA [facility] OB Services Antepartum Care Only Subsequent Single Visit OB Services Antepartum Care Only Subsequent Single Visit 0502F 10/28 MARY MEDINA [facility] OB Services Antepartum Care Only Subsequent Single Visit OB Services Antepartum Care Only Subsequent Single Visit 0502F 09/30 SHILONIEVES HOOD [facility] Immunization Administration By Injection, Each Additional Vaccine Immunization Administration By Injection, Each Additional Vaccine 97898 09/30 [facility] Immunization Administration By Injection, One Vaccine Immunization Administration By Injection, One Vaccine 67177 09/30 [facility] Tdap Vaccine Tdap Vaccine 38986 09/30 SHILONIEVES Delgado [facility] OB Services Antepartum Care Only Subsequent Single Visit OB Services Antepartum Care Only Subsequent Single Visit 0502F 09/02 SHILONIEVES HOOD TAD [facility] OB Services Antepartum Care Only First Visit, With Report OB Services Antepartum Care Only First Visit, With Report 0500F 08/21 SHILONIEVES HOOD [facility] Patient education, not otherwise cla ified, non-physician provider, individual, per se ion 08/21 GERALDO MASON [facility] OB Services Antepartum Care Only Subsequent Single Visit OB Services Antepartum Care Only Subsequent Single Visit 0502F 07/09 TMI DESAI [facility] Ultrasound [place] [address] 06/11 TIM DESAI [facility] OB Services Antepartum Care Only First Visit, With Report OB Services Antepartum Care Only First Visit, With Report 0500F 06/11 TIM DESAI [facility] Screening papanicolaou smear; obtaining, preparing and conveyance of cervical or vaginal smear to laboratory 06/11 TIM DESAI [facility] Physician Supervised Services Provision Of Educational Supplies Physician Supervised Services Provision Of Educational Supplies 06680 06/03 HO BROWNLEE [facility] Patient Counseling Medical Management Individual Patient Patient Counseling Medical Management Individual Patient [id number] 06/03 HO BROWNLEE [facility] Ultrasound Trans[place] [address] 05/22 TIM DESAI [facility] Non-Physician Phone Call To Patient/Provider Brief (5-10min) Non-Physician Phone Call To Patient/Provider Brief (5-10min) 53466 05/14 RAHEL NICHOLSCA S [facility] Non-Physician Phone Call To Patient/Provider Brief (5-10min) Non-Physician Phone Call To Patient/Provider Brief (5-10min) 97147 03/26 CARLA MORALEZ [facility] Non-Physician Phone Call To Patient/Provider Brief (5-10min) Non-Physician Phone Call To Patient/Provider Brief (5-10min) 37990 03/24 RAHEL NICHOLSCA Lizette [facility] Ultrasound Trans-Vaginal Ultrasound Trans-Vaginal 20716 02/28 MICHAEL GOMEZ [facility] Hysterosalpingograph y With Catheter Contrast Injection Hysterosalpingograph y With Catheter Contrast Injection 31409 02/14 MICHAEL GOMEZ [facility] Non-Physician Phone Call To Patient/Provider Brief (5-10min) Non-Physician Phone Call To Patient/Provider Brief (5-10min) 46184 01/30 SIMONE LAVON S [facility] Internet Med Svc Qual Nonphys Healthcare Prof Up To 7 Days Estab Patient Internet Med Svc Qual Nonphys Healthcare Prof Up To 7 Days Estab Patient [id number] 01/30 SIMONE LAVON S [facility] Internet Med Svc Qual Nonphys Healthcare Prof Up To 7 Days Estab Patient Internet Med Svc Qual Nonphys Healthcare Prof Up To 7 Days Estab Patient [id number] 04/30 CARLA MORALEZ [facility] Social History Combined list of available smoking, tobacco, and other social history from Department of Defense and Veterans Affairs facilities. Social History Type Response Date Comment Sourc e This section is an empty social history section. DoD Assessment and Plan Combined list of future care activities from Department of Defense and Veterans Affairs facilities (e.g., assessment and plan notes, appointments, orders, and referrals). Additional future care activities may be listed in the Plan of Care section. Result Assessment and Plan Date Source Assessment and Plan No data available for this section 09/09/2024 Ambulatory Pharmacy Functional Status Combined list of recent functional and cognitive assessments recorded at [facility] of Defense and Veterans Affairs (VA).VA Functional [place] Measurement (FIM) Scale: 1 = Total Assistance (Subject = 0% +), 2 = Maximal Assistance (Subject = 25% +), 3 = Moderate Assistance (Subject = 50% +), 4 = Minimal Assistance (Subject = 75% +), 5 = Supervision, 6 = Modified [place] (Device), 7 = Complete [place] (Timely, Safely). Assessment Date/Time Source Assessment Type Assessment Skill Assessment Score Assessment Details No data available for this section
--- OUTSIDE RECORDS SUMMARY | 2024-09-09 02:43 | XMS_ITS | Encounter Summary ---
Author Organization [facility] Address [address] [place] [address] Care Team Providers Care Missile Pad Mechanic Name Role Phone Unknown, Provider MD Primary Care Provider Tom Edwards MD Unavailable Unavailable Encounter Details Date Type Department Care Team (Late st Contact Info) Description 01/22/2024 Lab Requisition [facility] Pathology & Laboratory Medicine - [facility] [address] [place] [address] Outr Resulting Lab, Provider Social History Tobacco [...] Procedure Name Priority Date/Time Associated Diagnosis Comments PROLACTIN Routine 01/22/2024 9:30 EDT DHEA SULFATE Routine 01/22/2024 9:30 EDT ESTRADIOL, ADULTS Routine 01/22/2024 9:30 EDT FSH Routine 01/22/2024 9:30 EDT documented in this encounter Results * FSH (01/22/2024 9:30 EDT) FSH 6.3 See Note mIU/mL 01/22/2024 18:37 EDT [facility] Blood VENOUS BLOOD / Unknown 01/22/2024 9:30 EDT 01/22/2024 17:05 EDT Narrative [facility] - 01/22/2024 18:37 EDT NOTE: Female FSH Reference Ranges (Menstruating): PHYSIOLOGICAL STATUS ? REFERENCE RANGE ? Follicular (-12 to -4 days): ?? 2.5 - 10.2 mIU/mL Midcycle (-3 to +2 days): ?3.4 - 33.4 mIU/mL Luteal (+4 to +12 days): ? 1.5 - 9.1 mIU/mL Postmenopausal: ?23.0 - 116.3 mIU/mL Reference Ranges for pediatric non-menstruating female patients have not been established. Provider Outr Resulting Lab CHEMISTRY & BLOOD GAS ORDERABLES [facility] [address] [place] [address] * PROLACTIN (01/22/2024 9:30 EDT) [facility] Prolactin 7.9 See Note ng/mL 01/22/2024 18:37 EDT [facility] Comment: NOTE: Female Reference Ranges: PHYSIOLOGICAL STATUS ?REFERENCE RANGE ? Postmenopausal ?1.8 - 20.3 ng/mL ?9.7 - 208.5 ng/mL Non- ?2.8 - 29.2 ng/mL Blood VENOUS BLOOD / Unknown 01/22/2024 9:30 EDT 01/22/2024 17:05 EDT Provider Outr Resulting Lab CHEMISTRY & BLOOD GAS ORDERABLES Performing Organization Address [facility] de Phone Number [facility] [address] [place] [address] * ESTRADIOL, ADULTS (01/22/2024 9:30 EDT) [facility] Estradiol 69 See Note pg/mL 01/22/2024 18:21 EDT [facility] Comment: NOTE: FEMALE REFERENCE RANGES: MENSTRUATING ? By cycle day relative to LH peak Follicular ?(-12 to -4 days) ??20-144 pg/mL Midcycle ?(-3 to +2 days) ?? 64-357 pg/mL Luteal ?(+4 to +12 days) ??56-214 pg/mL POSTMENOPAUSAL ?<32 pg/mL *Cross reactivity with Fulvestrant could lead to a falsely elevated estradiol result in patients treated with this drug. Blood VENOUS BLOOD / Unknown 01/22/2024 9:30 EDT 01/22/2024 17:05 EDT Provider Outr Resulting Lab CHEMISTRY & BLOOD GAS ORDERABLES Performing Organization Address [facility] de Phone Number [facility] [address] [place] [address] * DHEA SULFATE (01/22/2024 9:30 EDT) [facility] DHEA Sulfate 257 96 - 512 ug/dL 01/25/2024 10:15 EDT [facility] Blood VENOUS BLOOD / Unknown 01/22/2024 9:30 EDT 01/22/2024 17:05 EDT Provider Outr Resulting Lab CHEMISTRY & BLOOD GAS ORDERABLES Performing Organization Address City/State/[facility] Co de Phone Number [facility] [address] [place] [address] documented in this encounter Visit Diagnoses Not on filedocumented in this encounter Care Teams Missile Pad Mechanic Relationship Specialty Start Date End Date Unknown, Provider, PCP - General 11/09/19 Tom Teague MD 11/09/19 documented as of this encounter
--- OUTSIDE RECORDS SUMMARY | 2024-09-09 02:43 | XMS_ITS | Clinical Summary ---
Author Organization [facility] [place] [address] Care Team Providers Care Medical Payment Poster Name Role Phone Unavailable Primary Care Provider Unavailabl e Encounters Date Type Department Care Team Description 09/07/2024 Transcribe Orders eD Incoming Referrals [phone] Dolores Hay CNM Encounter for supervision of normal , antepartum, unspecified ; Cystic fibrosis carrier from Last 3 Months Social History Tobacco Use Types Packs/Day Years Used Date Smoking Tobacco: Never Assessed Sex and Gender Information Value Date Recorded Sex Assigned at Not on file Gender Identity Not on file Sexual Orientation Not on file Plan of Treatment Health Maintenance Due Date Last Done Comments HIV screen 2013 Hepatitis C Screening 2013 Hepatitis B vaccine (0-59 yrs) (1) 2014 Tetanus/Diphtheria/Pertussis Vaccines (1 - Tdap) 03/08 PAP Smear 2016 Covid-19 Vaccine (1 - season) 2024 Influenza (Flu) vaccine (1 o f 1 - Influenza standard series) 07/10/2024 Procedures Procedure Name Priority Date/Time Associated Diagnosis Comments ULTRASOUND SCAN (SCAN) 09/06/2024 12:00 AM EDT LAB SCAN 08/24/2024 12:00 AM EDT LAB SCAN 08/24/2024 12:00 AM EDT from Last 3 Months Results * Scan Doc: Ultrasound (09/06/2024 12:00 AM EDT) Anatomical Region Laterality Modality Other Narrative 09/06/2024 12:00 AM EDT Ordered by an unspecified provider. Scanning Provider MEDIA MGR SCAN EXT O RDR/RSLT * Scan Doc: Lab (08/24/2024 12:00 AM EDT) Only the most recent of2 resultswithin the time period is included. Narrative 08/24/2024 12:00 AM EDT Ordered by an unspecified provider. Scanning Provider MEDIA MGR SCAN EXT O RDR/RSLT from Last 3 Months
--- OUTSIDE RECORDS SUMMARY | 2024-09-09 02:43 | XMS_ITS | Encounter Summary ---
Author Organization [facility] Address [address] [place] [address] Care Team Providers Care Dairy Nutrition Specialist Name Role Phone Unknown, Provider Primary Care Provider Tom Edwards MD Unavailable Unavailable Encounter Details Date Type Department Care Team (Late st Contact Info) Description 08/08/2020 Lab Requisition [facility] Pathology & Laboratory Medicine - [facility] [address] [place] [address] Miley Vega PA [address] [place] [phone] Encounter for other general examination Social History Tobacco Use Types Packs/Day Years [...] Procedure Name Priority Date/Time Associated Diagnosis Comments PAP TEST Today 08/08/2020 22:27 EDT HPV DNA DETECTION WITH GENOTYPING, PCR Today 08/08/2020 22:27 EDT documented in this encounter Results * (ABNORMAL) HUMAN PAPILLOMAVIRUS (HPV) DETECTION-HIGH RISK TYPES (08/08/2020 22:27 EDT) HPV other High Risk types, PCR Positive( A) Negative 08/22/2020 15:33 [facility] Comment:E6 OR E7 mRNA from o ne or more types of HPV types 16,18,31,33,35,39,45,51,52,56,58,59,66, and 68 is detected by drosser mediated amplification. High and intermediate risk HPV types are associated with most squamous intraepithelial lesions and cervical cancers. Papanicolaou smear specimen (specimen) CERVIX UTERI STRUCTURE / Unknown 08/08/2020 22:27 EDT 08/20/2020 15:00 EDT Miley PIRES MICROBIOLOGY - G ENERAL ORDERABLES [facility] [address] [place] [address] * PAP TEST (08/08/2020 22:27 EDT) Specimens A. Cervix and/or Endocervix , ThinPrep Imaging System with Manual Evaluation 08/22/2020 15:33 [facility] Specimen Adequacy Satisfactory for Evaluation - transformation zone component present 08/22/2020 15:33 [facility] General Categorization Epithelial Cell Abnormality 08/22/2020 15:33 [facility] Descriptive Diagnosis Squamous Cell Abnormality - Atypical squamous cells, undetermined significance (ASC-US). 08/22/2020 15:33 [facility] Educational Comments [facility] recommends following ASCCP's 2012 Updated Consensus Guidelines for the Management of Abnormal Cervical Cancer Screening Tests and Cancer Precursors (JLGTD, 2013; 17(5):S1-S27). Consensus guidelines are available online at www.asccp.org. 08/22/2020 15:33 [facility] Attestation By the signature below, the attending physician certifies that they have personally conducted a gross and/or microscopic examination of the described specimens and rendered or confirmed the above diagnosis. 08/22/2020 15:33 [facility] at 1533 Clinical History Clinical History, Signs, Symptoms, Chief Complaint, Pertaining to This Order: See below Last Menstral Period: 08/01/20 08/22/2020 15:33 EDT [facility] HPV The result for the Human Papillomavirus (HPV) Detection-High Risk Types is Positive . E6 OR E7 mRNA from one or more types of HPV types 16,18,31,33,35,39 ,45,51,52,56,58,5 9,66, and 68 is detected by drosser mediated amplification. High and intermediate risk HPV types are associated with most squamous intraepithelial lesions and cervical cancers. Testing was performed on specimen [id number] and was resulted on 08/22/2020 1523 EDT by TASHI, LAB INSTRUMENT RESULTS IN 08/22/2020 15:33 EDT [facility] Performing Lab [facility] 08/22/2020 15:33 EDT [facility] Scanned Images 08/22/2020 15:33 EDT [facility] Papanicolaou smear specimen (specimen) CERVIX UTERI STRUCTURE / Unknown 08/08/2020 22:27 EDT 08/10/2020 10:30 EDT Miley PIRES PATHOLOGY ORDERA BLES [facility] [address] [place] [address] documented in this encounter Visit Diagnoses Diagnosis Encounter for other general examination documented in this encounter Care Teams Dairy Nutrition Specialist Relationship Specialty Start Date End Date Unknown, Provider, PCP - General 11/09/19 Tom Teague MD 11/09/19 documented as of this encounter
--- OUTSIDE RECORDS SUMMARY | 2024-09-09 02:43 | XMS_ITS | Encounter Summary ---
[place] [address] Care Team Providers Care Security Guard Name Role Phone Unavailable Primary Care Provider Unavailabl e Reason for Referral * Consultation (Urgent) - Authorized Specialty Diagnoses / Procedures Referred By Contac t Referred To Contact Obstetrics and Gynecology Diagnoses Encounter for supervision of normal , antepartum, unspecified Cystic fibrosis carrier CYSTIC FIBROSIS CARRIER FOB ALSO CARRIER Dolores Hay CNM [address] [place] [address] [address] [place] [address] [facility] [address] [place] [address] Referral ID Status Reason Start Date Expiration Date Visits Requested Visits Authorized [id number] Authorized Consult, Test & Treat PCP Updated and/or Approved 09/07/2025 6 6 Encounter Details Date Type Department Care Team (Late st Contact Info) Description 09/07/2024 Transcribe Orders eDH Incoming Referrals [phone] Dolores Hay CNM [address] [place] [address] [address] [place], [place] [id number] Encounter for supervision of normal , antepartum, unspecified ; Cystic fibrosis carrier Social History Tobacco Use Types Packs/Day Years Used Date Smoking Tobacco: Never Assessed Sex and Gender Information Value Date Recorded Sex Assigned at Not on file Gender Identity Not on file Sexual Orientation Not on file documented as of this encounter Plan of Treatment Scheduled Referrals Name Type Priority Associated Diagnoses Orde r Schedule Referral to Maternal Medicine Outpatient Referral Urgent Encounter for supervision of normal , antepartum, unspecified Cystic fibrosis carrier Ordered: 09/07/2024 documented as of this encounter Visit Diagnoses Diagnosis Encounter for supervision of normal , antepartum, unspecified Cystic fibrosis carrier Cystic fibrosis gene carrier documented in this encounter
--- OUTSIDE RECORDS SUMMARY | 2024-09-09 02:43 | XMS_ITS | Encounter Summary ---
Author Organization [facility] Address [address] [place] [address] Care Team Providers Care Senior Health Physics Technician Name Role Phone Unknown, Provider MD Primary Care Provider Tom Edwards MD Unavailable Unavailable Encounter Details Date Type Department Care Team (Late st Contact Info) Description 06/29/2024 Lab Requisition [facility] Pathology & Laboratory Medicine - [address] [address] Outr Resulting Lab, Provider Social History Tobacco [...] Procedure Name Priority Date/Time Associated Diagnosis Comments VAGINAL CTGC AND VAGINITIS/VAGINOSIS MOLECULAR DETECTION Routine 06/29/2024 16:21 EDT documented in this encounter Results * (ABNORMAL) VAGINAL CTGC AND VAGINITIS/VAGINOSIS MOLECULAR DETECTION (06/29/2024 16:21 EDT) Alysha glabrata Negative Negative 07/02/2024 21:59 EDT [facility] Trichomonas Vaginalis Negative Negative 07/02/2024 21:59 EDT [facility] BV (Bacterial vaginosis) Positive(A) Negative 07/02/2024 21:59 EDT [facility] Neisseria gonorrhoeae Result Negative Negative 07/02/2024 21:59 EDT [facility] Chlamydia trachomatis Result Negative Negative 07/02/2024 21:59 EDT [facility] Alysha Species Positive(A) Negative 07/02/20 21:59 EDT [facility] Swab VAGINAL STRUCTURE / Unknown 06/29/2024 16:21 EDT 06/29/2024 21:32 EDT Provider Outr Resulting Lab MICROBIOLOGY - GENERAL ORDERABLES Performing Organization Address City/State/[facility] Co de Phone Number [facility] [address] [place] [address] documented in this encounter Visit Diagnoses Not on filedocumented in this encounter Care Teams Senior Health Physics Technician Relationship Specialty Start Date End Date Unknown, Provider, PCP - General 11/09/19 Tom Teague MD 11/09/19 documented as of this encounter
--- OUTSIDE RECORDS SUMMARY | 2024-09-09 02:43 | XMS_ITS | Referral Summary ---
Author Organization [facility] Address [address] [place] [address] Care Team Providers Care Screen And Cyclone Repairer Name Role Phone Unknown, Provider Primary Care Provider Tom Edwards MD Unavailable Unavailable Encounters Date Type Department Care Team Description 08/24/2024 Lab Requisition [facility] Pathology & Laboratory [address] [address] Outr Resulting Lab, Provider 08/24/2024 Lab Requisition [facility] Pathology Laboratory [address] [address] Outr Resulting Lab, Provider 08/24/2024 Lab Requisition [facility] Pathology Laboratory [address] [address] Outr Resulting Lab, Provider 08/24/2024 Lab Requisition [facility] Pathology & Laboratory [address] [address] Outr Resulting Lab, Provider 06/29/2024 Lab Requisition [facility] Pathology Laboratory [address] [address] Outr Resulting Lab, Provider from Last 3 Months Social History Tobacco Use Types Packs/Day Years Used Date Smoking Tobacco: Never Assessed Interpersonal Safety Answer Date Record ed Physically Hurt Never 06/14/2020 Verbally Threaten Not on file 06/14/2020 Sex and Gender Information Value Date Recorded Sex Assigned at Not on file Gender Identity Not on file Sexual Orientation Not on file Plan of Treatment Not on file Procedures Procedure Name Priority Date/Time Associated Diagnosis Comments HEPATITIS B SURFACE ANTIGEN Routine 08/24/2024 15:02 EDT HEPATITIS C AB W REFLEX TO HCV RNA BY PCR Routine 08/24/2024 15:02 EDT VARICELLA IGG ANTIBODY Routine 08/24/2024 15:02 EDT RUBELLA IGG ANTIBODY Routine 08/24/2024 15:02 EDT HIV 1/2 ANTIGEN AND ANTIBODY, 4TH GENERATION Routine 08/24/2024 15:02 EDT CHLAMYDIA/N. GONORRHOEAE AMPLIFIED NUCLEIC ACID Routine 08/24/2024 14:20 EDT VAGINAL CTGC AND VAGINITIS/VAGINOSIS MOLECULAR DETECTION Routine 06/29/2024 16:21 EDT from Last 3 Months Results * HEPATITIS C AB W REFLEX TO HCV RNA BY PCR (08/24/2024 15:02 EDT) Hep C Antibody Negative Negative 08/24/2024 23:[address] [facility] Blood VENOUS BLOOD / Unknown 08/24/2024 15:02 EDT 08/24/2024 21:52 EDT Provider Outr Resulting Lab CHEMISTRY & BLOOD GAS ORDERABLES [facility] [address] [place] [phone] * RUBELLA IGG ANTIBODY (08/24/2024 15:02 EDT) Rubella IgG Ab Negative See Note 08/25/2024 10:[address] [facility] Comment:Sample is considered negative [...] & BLOOD GAS ORDERABLES Performing Organization Address [facility]/ZIP Co de Phone Number [facility] [address] [place] [address] * HEPATITIS B SURFACE ANTIGEN (08/24/2024 15:02 EDT) Hep B Surface Ag Negative Negative 08/24/2024 22:[address] [facility] Blood VENOUS BLOOD / Unknown 08/24/2024 15:02 EDT 08/24/2024 21:52 EDT Provider Outr Resulting Lab CHEMISTRY & BLOOD GAS ORDERABLES Performing Organization Address [facility] Co de Phone Number [facility] [address] [place], [place] [address] * VARICELLA IGG ANTIBODY (08/24/2024 15:02 EDT) Pathologist [facility] Varicella IgG Ab Positive See Note 08/25/2024 10:[address] [facility] Comment:Presence of detectab le Varicella Zoster virus IgG antibodies. Blood VENOUS BLOOD / Unknown 08/24/2024 15:02 EDT 08/24/2024 21:52 EDT Provider Outr Resulting Lab IMMUNOLOGY A ND SEROLOGY ORDERABLES Performing Organization Address [facility] Co de Phone Number [facility] [address] [place], [place] [address] * HIV 1/2 ANTIGEN AND ANTIBODY, 4TH GENERATION (08/24/2024 15:02 EDT) HIV 1 and 2 Antibody/p24 Antigen, 4th Generation Negative Negative 08/24/2024 23:[address] [facility] Comment:If acute HIV-1 infec tion is suspected in a high risk patient, submit plasma specimen for HIV-1 RNA quantitation test. Blood VENOUS BLOOD / Unknown 08/24/2024 15:02 EDT 08/24/2024 21:52 EDT Narrative [facility] - 08/24/2024 23:31 EDT Fourth Generation assay performed on the Siemens Centaur XPT. Provider Outr Resulting Lab IMMUNOLOGY A ND SEROLOGY ORDERABLES Performing Organization Address City/[facility]/ZIP Co de Phone Number [facility] [address] [place] [address] * CHLAMYDIA/N. GONORRHOEAE AMPLIFIED NUCLEIC ACID (08/24/2024 14:20 EDT) Neisseria gonorrhoeae Result Negative Negative 08/25/2024 12:[address] [facility] Chlamydia trachomatis Result Negative Negative 08/25/2024 12:[address] [facility] Swab VAGINAL STRUCTURE / Unknown 08/24/2024 14:20 EDT 08/24/2024 23:31 EDT Provider Outr Resulting Lab MICROBIOLOGY - GENERAL ORDERABLES Performing Organization Address [facility] Co de Phone Number [facility] [address] [place] [phone] * (ABNORMAL) VAGINAL CTGC AND VAGINITIS/VAGINOSIS MOLECULAR DETECTION (06/29/2024 16:21 EDT) Alysha glabrata Negative Negative 07/02/2024 21:[address] [facility] Trichomonas Vaginalis Negative Negative 07/02/2024 21:[address] [facility] BV (Bacterial vaginosis) Positive(A) Negative 07/02/2024 21:[address] [facility] Neisseria gonorrhoeae Result Negative Negative 07/02/2024 21:[address] [facility] Chlamydia trachomatis Result Negative Negative 07/02/2024 21:[address] [facility] Alysha Species Positive(A) Negative 07/02/20 21:[address] [facility] Swab VAGINAL STRUCTURE / Unknown 06/29/2024 16:21 EDT 06/29/2024 21:32 EDT Provider Outr Resulting Lab MICROBIOLOGY - GENERAL ORDERABLES [facility] [address] [place] [address] from Last 3 Months Care Teams Screen And Cyclone Repairer Relationship Specialty Start Date End Date Unknown, Provider, PCP - General 11/09/19 Tom Teague MD 11/09/19
--- OUTSIDE RECORDS SUMMARY | 2024-09-09 02:43 | XMS_ITS | Clinical Summary ---
Author Organization [facility] Address [address] [place] [address] Care Team Providers Care After School Program Coordinator Name Role Phone Unknown, Provider Primary Care Provider Tom Edwards MD Unavailable Unavailable Encounters Date Type Department Care Team Description 08/24/2024 Lab Requisition [facility] Pathology & Laboratory [address] [address] Outr Resulting Lab, Provider 08/24/2024 Lab Requisition [facility] Pathology Laboratory [address] [address] Outr Resulting Lab, Provider 08/24/2024 Lab Requisition [facility] Pathology Laboratory [address] [address] Outr Resulting Lab, Provider 08/24/2024 Lab Requisition [facility] Pathology & Laboratory [address] [address] Outr Resulting Lab, Provider 06/29/2024 Lab Requisition [facility] Pathology Laboratory [address] [address] Outr Resulting Lab, Provider from Last 3 [...] Health Maintenance Due Date Last Done Comments Hepatitis B Vaccine (1 of 3 - 19+ 3-dose series) 2014 COVID-19 Vaccine ( season) 2024 Hepatitis C Screen Completed 08/24/2024, 12/30/2019 Procedures Procedure Name Priority Date/Time Associated Diagnosis [...] C Antibody Negative Negative 08/24/2024 23:38 EDT [facility] Blood VENOUS BLOOD / Unknown 08/24/2024 15:02 EDT 08/24/2024 21:52 EDT Provider Outr Resulting Lab CHEMISTRY & BLOOD GAS ORDERABLES [facility] [address] [place], [place] [phone] * RUBELLA IGG ANTIBODY (08/24/2024 15:02 EDT) Rubella IgG Ab Negative See Note 08/25/2024 10:31 EDT [facility] Comment:Sample is considered negative [...] & BLOOD GAS ORDERABLES Performing Organization Address [facility] Co de Phone Number [facility] [address] [place] [address] * HEPATITIS B SURFACE ANTIGEN (08/24/2024 15:02 EDT) Hep B Surface Ag Negative Negative 08/24/2024 22:58 EDT [facility] Blood VENOUS BLOOD / Unknown 08/24/2024 15:02 EDT 08/24/2024 21:52 EDT Provider Outr Resulting Lab CHEMISTRY & BLOOD GAS ORDERABLES Performing Organization Address [facility] Co de Phone Number [facility] [address] [place] [address] * VARICELLA IGG ANTIBODY (08/24/2024 15:02 EDT) Varicella IgG Ab Positive See Note 08/25/2024 10:29 EDT [facility] Comment:Presence of detectab le Varicella Zoster virus IgG antibodies. Blood VENOUS BLOOD / Unknown 08/24/2024 15:02 EDT 08/24/2024 21:52 EDT Provider Outr Resulting Lab IMMUNOLOGY A ND SEROLOGY ORDERABLES Performing Organization Address [facility] Co de Phone Number [facility] [address] [place], [place] [id number] * HIV 1/2 ANTIGEN AND ANTIBODY, 4TH GENERATION (08/24/2024 15:02 EDT) HIV 1 and 2 Antibody/p24 Antigen, 4th Generation Negative Negative 08/24/2024 23:31 EDT [facility] Comment:If acute HIV-1 infec tion is suspected in a high risk patient, submit plasma specimen for HIV-1 RNA quantitation test. Blood VENOUS BLOOD / Unknown 08/24/2024 15:02 EDT 08/24/2024 21:52 EDT Narrative [facility] - 08/24/2024 23:31 EDT Fourth Generation assay performed on the Siemens Centaur XPT. Provider Outr Resulting Lab IMMUNOLOGY A ND SEROLOGY ORDERABLES Performing Organization Address City/[facility]/ZIP Co de Phone Number [facility] [address] [place] [address] * CHLAMYDIA/N. GONORRHOEAE AMPLIFIED NUCLEIC ACID (08/24/2024 14:20 EDT) Pathologist [facility] Neisseria gonorrhoeae Result Negative Negative 08/25/2024 12:46 EDT [facility] Chlamydia trachomatis Result Negative Negative 08/25/2024 12:46 EDT [facility] Swab VAGINAL STRUCTURE / Unknown 08/24/2024 14:20 EDT 08/24/2024 23:31 EDT Provider Outr Resulting Lab MICROBIOLOGY - GENERAL ORDERABLES Performing Organization Address City/[facility]/ZIP Co de Phone Number [facility] [address] [place] [phone] * (ABNORMAL) VAGINAL CTGC AND VAGINITIS/VAGINOSIS MOLECULAR DETECTION (06/29/2024 16:21 EDT) Alysha glabrata Negative Negative 07/02/2024 21:59 EDT [facility] Trichomonas Vaginalis Negative Negative 07/02/2024 21:59 EDT [facility] BV (Bacterial vaginosis) Positive(A) Negative 07/02/2024 21:59 EDT [facility] Neisseria gonorrhoeae Result Negative Negative 07/02/2024 21:59 EDT [facility] Chlamydia trachomatis Result Negative Negative 07/02/2024 21:59 EDT [facility] Alysha Species Positive(A) Negative 07/02/20 21:59 EDT [facility] Swab VAGINAL STRUCTURE / Unknown 06/29/2024 16:21 EDT 06/29/2024 21:32 EDT Provider Outr Resulting Lab MICROBIOLOGY - GENERAL ORDERABLES [facility] [address] [place] [address] from Last 3 Months Care Teams After School Program Coordinator Relationship Specialty Start Date End Date Unknown, Provider, PCP - General 11/09/19 Tom Teague MD 11/09/19
--- OUTSIDE RECORDS SUMMARY | 2024-09-09 02:43 | XMS_ITS | Encounter Summary ---
Author Organization [facility] Address [address] [place] [address] Care Team Providers Care Big Machine Consultant Name Role Phone Unknown, Provider MD Primary Care Provider Tom Edwards MD Unavailable Unavailable Encounter Details Date Type Department Care Team (Late st Contact Info) Description 12/22/2023 Lab Requisition [facility] Pathology & Laboratory Medicine - [address] [address] Outr Resulting Lab, Provider Social History Tobacco [...] Procedure Name Priority Date/Time Associated Diagnosis Comments FECAL BACTERIAL PATHOGENS BY PCR Routine 12/22/2023 12:40 EST documented in this encounter Results * (ABNORMAL) FECAL BACTERIAL PATHOGENS BY PCR (12/22/2023 12:40 EST) Salmonella PCR Positive(A) Negative 10:59 EST [facility] Shigella/Enteroin vasive E. coli Negative Negative 12/23/2023 10:59 EST [facility] HN LAB CAMPYLOBACTER PCR Negative Negative 12/23/2023 10:59 EST [facility] Shiga Toxin PCR Negative Negative 10:59 EST [facility] Feces SPECIMEN FROM RECTUM / Unknown 12/22/2023 12:40 EST 12/22/2023 21:30 EST Provider Outr Resulting Lab MICROBIOLOGY - GENERAL ORDERABLES Performing Organization Address City/State/[facility] Co de Phone Number [facility] [address] [place] [address] documented in this encounter Visit Diagnoses Not on filedocumented in this encounter Care Teams Big Machine Consultant Relationship Specialty Start Date End Date Unknown, Provider, PCP - General 11/09/19 Tom Teague MD 11/09/19 documented as of this encounter
--- OUTSIDE RECORDS SUMMARY | 2024-09-09 02:43 | XMS_ITS | Encounter Summary ---
Author Organization [facility] Address [address] [place] [address] Care Team Providers Care Installer Interior Assemblies Name Role Phone Unknown, Provider MD Primary Care Provider Tom Edwards MD Unavailable Unavailable Encounter Details Date Type Department Care Team (Late st Contact Info) Description 04/27/2024 Lab Requisition [facility] Pathology & Laboratory Medicine - [address] [address] Outr Resulting Lab, Provider Social History Tobacco [...] Comments CHLAMYDIA/N. GONORRHOEAE AMPLIFIED NUCLEIC ACID Routine 04/27/2024 15:15 EDT documented in this encounter Results * CHLAMYDIA/N. GONORRHOEAE AMPLIFIED RNA (04/27/2024 15:15 EDT) Neisseria gonorrhoeae Result Negative Negative 04/29/2024 13:21 EDT [facility] Chlamydia trachomatis Result Negative Negative 04/29/2024 13:21 EDT [facility] Swab VAGINAL STRUCTURE / Unknown 04/27/2024 15:15 EDT 04/28/2024 21:59 EDT Provider Outr Resulting Lab MICROBIOLOGY - GENERAL ORDERABLES [facility] [address] [place] [address] documented in this encounter Visit Diagnoses Not on filedocumented in this encounter Care Teams Installer Interior Assemblies Relationship Specialty Start Date End Date Unknown, Provider, PCP - General 11/09/19 Tom Teague MD 11/09/19 documented as of this encounter
--- OUTSIDE RECORDS SUMMARY | 2024-09-09 02:43 | XMS_ITS | Encounter Summary ---
Author Organization [facility] Address [address] [place] [address] Care Team Providers Care Enamel Buffer Name Role Phone Unknown, Provider MD Primary Care Provider Tom Edwards MD Unavailable Unavailable Encounter Details Date Type Department Care Team (Late st Contact Info) Description 08/31/2020 Lab Requisition [facility] Pathology & Laboratory Medicine - [facility] [address] [place] [address] Jaskaran Lugo MD [address] [place] [phone] Encounter for other general examination Social History [...] Date/Time Associated Diagnosis Comments SURGICAL PATHOLOGY Today 08/31/2020 14 :00 EDT documented in this encounter Results * SURGICAL PATHOLOGY (08/31/2020 14:00 EDT) Final Diagnosis A. ENDOCERVIX, CURETTAGE: - Benign endocervical tissue. B. CERVIX, 11 O'CLOCK, BIOPSY: - Transformation zone mucosa with: - Reactive epithelial change. - Microglandular hyperplasia. 09/04/2020 13:47 [facility] Attestation By the signature below, the attending physician certifies that they have 1) personally conducted a gross and/or microscopic examination of the described specimen(s), and/or personally interpreted the results of laboratory testing of the described specimen(s), and 2) personally rendered or confirmed the above diagnosis. 09/04/2020 13:47 [facility] at 1347 Clinical History Pap ASCUS, (+)HR HPV 09/04/2020 13:47 [facility] Gross Description A. Received in formalin labelled with proper patient identification (initials D, S) and A is an aggregate of blood clot and blood tinged mucus, 1.5 x 1.5 x 0.7 cm. Entirely submitted in A1-A2. B. Received in formalin labelled with proper patient identification (initials D, S) and B are 3 dull brown irregular tissues ranging from 0.2 x 0.1 x 0.1 cm to 0.3 x 0.1 x 0.1 cm. Entirely submitted in B1. LEXIS YU(ASCP) 09/03/2020 8:50 09/04/2020 13:47 [facility] Performing Lab [facility] 09/04/2020 13:47 [facility] Scanned Images 09/04/2020 13:47 [facility] Tissue ENTIRE WALL OF CERVIX / Unknown 08/31/2020 14:00 EDT 08/31/2020 23:10 EDT Tissue specimen (specimen) CERVIX UTERI STRUCTURE / Unknown 08/31/2020 14:00 EDT 08/31/2020 23:10 EDT Jaskaran Lugo MD PATHOLOGY [facility] [address] [place] [address] documented in this encounter Visit Diagnoses Diagnosis Encounter for other general examination documented in this encounter Care Teams Enamel Buffer Relationship Specialty Start Date End Date Unknown, Provider, PCP - General 11/09/19 Tom Teague MD 11/09/19 documented as of this encounter
--- OUTSIDE RECORDS SUMMARY | 2024-09-09 02:43 | XMS_ITS | Encounter Summary ---
Author Organization [facility] Address [address] [place] [address] Care Team Providers Care Press Clipper Name Role Phone Unknown, Provider Primary Care Provider Tom Edwards MD Unavailable Unavailable Encounter Details Date Type Department Care Team (Late st Contact Info) Description 09/10/[address] [facility] Pathology & Laboratory Medicine - [address] [address] Miley Vega PA [address] [place] [phone] Encounter for other general examination Social [...] Date/Time Associated Diagnosis Comments PAP TEST Today 09/10/2021 16:01 EDT documented in this encounter Results * PAP TEST (09/10/2021 16:01 EDT) Specimens A. Cervix and/or Endocervix , ThinPrep Imaging System with Manual Evaluation 09/16/2021 13:02 EST [facility] Specimen Adequacy Satisfactory for Evaluation - transformation zone component present 09/16/2021 13:02 [facility] General Categorization Negative for intraepithelial lesion or malignancy 09/16/2021 13:02 [facility] Attestation . 09/16/2021 13:02 [facility] at 1302 Clinical History Clinical History, Signs, Symptoms, Chief Complaint, Pertaining to This Order: See below Last Menstral Period: 08/29/21 [employer] Treatment History?: Yes 09/16/2021 13:02 [facility] Performing Lab [facility] 09/16/2021 13:02 [facility] Scanned Images 09/16/2021 13:02 [facility] Papanicolaou smear specimen (specimen) CERVIX UTERI STRUCTURE / Unknown 09/10/2021 16:01 EDT 09/11/2021 15:24 EDT Miley PIRES PATHOLOGY ORDERA BLES [facility] [address] [place] [address] documented in this encounter Visit Diagnoses Diagnosis Encounter for other general examination documented in this encounter Care Teams Press Clipper Relationship Specialty Start Date End Date Unknown, Provider, PCP - General 11/09/19 Tom Teague MD 11/09/19 documented as of this encounter
--- OUTSIDE RECORDS SUMMARY | 2024-09-09 02:43 | XMS_ITS | Encounter Summary ---
Author Organization [facility] Address [address] [place] [address] Care Team Providers Care Community Coordinator For High School Name Role Phone Unknown, Provider MD Primary Care Provider Tom Edwards MD Unavailable Unavailable Encounter Details Date Type Department Care Team (Late st Contact Info) Description 12/22/2023 Lab Requisition [facility] Pathology & Laboratory Medicine - [address] [address] Outr Resulting Lab, Provider Social History Tobacco [...] Procedure Name Priority Date/Time Associated Diagnosis Comments GIARDIA AND CRYPTOSPORIDIUM ANTIGENS Routine 12/22/2023 12:40 EST OVA/PARASITE EXAM Routine 12/22/2023 12: 40 EST documented in this encounter Results * GIARDIA AND CRYPTOSPORIDIUM ANTIGENS (12/22/2023 12:40 EST) Giardia and Cryptosporidium Cryptosporidium Antigen Neg and Giardia Antigen Neg Cryptosporidium Antigen Neg and Giardia Antigen Neg 10:45 EST [facility] Feces SPECIMEN FROM RECTUM / Unknown 12/22/2023 12:40 EST 12/22/2023 21:30 EST Provider Outr Resulting Lab MICROBIOLOGY - GENERAL ORDERABLES Performing Organization Address City/[facility] Co de Phone Number [facility] [address] [place] [address] * OVA/PARASITE EXAM (12/22/2023 12:40 EST) Parasite No ova and parasites seen. 12/24/2023 13:13 EST [facility] Feces SPECIMEN FROM RECTUM / Unknown 12/22/2023 12:40 EST 12/22/2023 21:30 EST Narrative [facility] - 12/24/2023 13:13 EST (If Cryptosporidium, Cyclospora, or Microsporidium are suspected, specific tests must be requested.) Single negative specimen does not rule out the possibility of a parasitic infection. Provider Outr Resulting Lab MICROBIOLOGY - GENERAL ORDERABLES Performing Organization Address City/[facility] Co de Phone Number [facility] [address] [place] [address] documented in this encounter Visit Diagnoses Not on filedocumented in this encounter Care Teams Community Coordinator For [employer] Relationship Specialty Start Date End Date Unknown, Provider, PCP - General 11/09/19 Tom Teague MD 11/09/19 documented as of this encounter
--- OUTSIDE RECORDS SUMMARY | 2024-09-09 02:43 | XMS_ITS | Encounter Summary ---
Author Organization [facility] Address [address] [place] [address] Care Team Providers Care Software Developer Manager Name Role Phone Unknown, Provider Primary Care Provider Tom Edwards MD Unavailable Unavailable Encounter Details Date Type Department Care Team (Late st Contact Info) Description 12/30/2019 Lab Requisition [facility] Pathology & Laboratory Medicine - [facility] [address] [place] [address] Unknown, Provider, Social History Tobacco Use Types [...] REFLEX TO HCV RNA BY PCR Routine 12/30/2019 8:30 EST HEPATITIS B SURFACE ANTIGEN Routine 12/30/2019 8:30 EST HIV 1/2 ANTIGEN AND ANTIBODY, 4TH GENERATION Routine 12/30/2019 8:30 EST documented in this encounter Results * HIV 1/2 ANTIGEN AND ANTIBODY, 4TH GENERATION (12/30/2019 8:30 EST) HIV 1 and 2 Antibody/p24 Antigen, 4th Generation Negative Negative 01/02/2020 11:19 EST [facility] Comment: If acute HIV-1 infection is suspected in a high risk ??patient, submit plasma specimen for HIV-1 RNA quantitation test. Fourth Generation assay performed on the Siemens Centaur. Blood VENOUS BLOOD / Unknown 12/30/2019 8:30 EST 12/30/2019 21:06 EST Provider Unknown IMMUNOLOGY AND SEROL OGY ORDERABLES Performing Organization Address City/[facility] Co de Phone Number [facility] [address] [place] [address] * HEPATITIS C AB W REFLEX TO HCV RNA BY PCR (12/30/2019 8:30 EST) Hep C Antibody Negative Negative 01/02/2020 11:02 EST [facility] Blood VENOUS BLOOD / Unknown 12/30/2019 8:30 EST 12/30/2019 21:06 EST Provider Unknown CHEMISTRY & BLOOD GA S ORDERABLES Performing Organization Address [facility] Co de Phone Number [facility] [address] [place] [address] * HEPATITIS B SURFACE ANTIGEN (12/30/2019 8:30 EST) Hep B Surface Ag Negative Negative 01/02/2020 10:46 EST [facility] Blood VENOUS BLOOD / Unknown 12/30/2019 8:30 EST 12/30/2019 21:06 EST Provider Unknown CHEMISTRY & BLOOD GA S ORDERABLES Performing Organization Address [facility] Co de Phone Number [facility] [address] [place] [address] documented in this encounter Visit Diagnoses Not on filedocumented in this encounter Care Teams Software Developer Manager Relationship Specialty Start Date End Date Unknown, Provider, PCP - General 11/09/19 Tom Teague MD 11/09/19 documented as of this encounter
--- OUTSIDE RECORDS SUMMARY | 2024-09-09 02:43 | XMS_ITS | Encounter Summary ---
Author Organization [facility] Address [address] [place] [address] Care Team Providers Care Printing Film Stripper Name Role Phone Unknown, Provider Primary Care Provider Tom Edwards MD Unavailable Unavailable Encounter Details Date Type Department Care Team (Late st Contact Info) Description 12/03/2022 Lab Requisition [facility] Pathology & Laboratory Medicine - [address] [address] Miley Vega PA [address] [place] [phone] Encounter for other general examination Social [...] Date/Time Associated Diagnosis Comments PAP TEST Today 12/03/2022 13:51 EST HPV DNA DETECTION WITH GENOTYPING, PCR Today 12/03/2022 13:51 EST documented in this encounter Results * HUMAN PAPILLOMAVIRUS (HPV) DETECTION-HIGH RISK TYPES (12/03/2022 13:51 EST) HPV other High Risk types, PCR Negative Negative 12/12/2022 15:29 [facility] Comment:No E6 or E7 mRNA is detected from HPV types 16,18,31,33,35,39,45,51,52,56,58,59,66, and 68 by grocery sacker mediated amplification. Papanicolaou smear specimen (specimen) CERVIX UTERI STRUCTURE / Unknown 12/03/2022 13:51 EST 12/11/2022 10:53 EST Miley PIRES MICROBIOLOGY - G ENERAL ORDERABLES [facility] [address] [place] [id number] * PAP TEST (12/03/2022 13:51 EST) Specimens A. Cervix and/or Endocervix , ThinPrep Imaging System with Manual Evaluation 12/12/2022 15:29 [facility] Specimen Adequacy Satisfactory for Evaluation - transformation zone component present 12/12/2022 15:29 [facility] General Categorization Negative for intraepithelial lesion or malignancy 12/12/2022 15:29 [facility] Descriptive Diagnosis Fungal organisms present morphologically consistent with Alysha species. Shift in lina present suggestive of bacterial vaginosis. 12/12/2022 15:29 [facility] Attestation By the signature below, the attending physician certifies that they have personally conducted a gross and/or microscopic examination of the described specimens and rendered or confirmed the above diagnosis. 12/12/2022 15:29 [facility] at 1529 Clinical History See below 12/12/19 15:29 [facility] HPV The result for the Human Papillomavirus (HPV) Detection-High Risk Types is Negative. No E6 or E7 mRNA is detected from HPV types 16,18,31,33,35,39 ,45,51,52,56,58,5 9,66, and 68 by grocery sacker mediated amplification.Pauline ting was performed on specimen [id number] and was resulted on 12/12/2022 1529 EST by TASHI, LAB INSTRUMENT RESULTS IN 12/12/2022 15:29 EST [facility] Performing Lab [facility] 12/12/2022 15:29 EST [facility] Scanned Images 12/12/2022 15:29 EST [facility] Papanicolaou smear specimen (specimen) CERVIX UTERI STRUCTURE / Unknown 12/03/2022 13:51 EST 12/04/2022 13:16 EST Miley PIRES PATHOLOGY ORDERA BLES [facility] [address] [place] [address] documented in this encounter Visit Diagnoses Diagnosis Encounter for other general examination documented in this encounter Care Teams Printing Film Stripper Relationship Specialty Start Date End Date Unknown, Provider, PCP - General 11/09/19 Tom Teague MD 11/09/19 documented as of this encounter
--- OUTSIDE RECORDS SUMMARY | 2024-09-09 02:43 | XMS_ITS | Encounter Summary ---
Author Organization [facility] Address [address] [place] [address] Care Team Providers Care Dog Handler Name Role Phone Unknown, Provider MD Primary Care Provider Tom Edwards MD Unavailable Unavailable Encounter Details Date Type Department Care Team (Late st Contact Info) Description 09/10/2021 Lab Requisition [facility] Pathology & Laboratory Medicine - [address] [address] Outr Resulting Lab, Provider Social History Tobacco [...] Associated Diagnosis Comments CHLAMYDIA/N. GONORRHOEAE AMPLIFIED NUCLEIC ACID, THINPREP Routine 09/10/2021 16:01 EDT documented in this encounter Results * CHLAMYDIA/N. GONORRHOEAE AMPLIFIED RNA, THINPREP (09/10/2021 16:01 EDT) Neisseria gonorrhoeae Result Negative Negative 09/13/2021 12:04 EDT [facility] Chlamydia trachomatis Result Negative Negative 09/13/2021 12:04 EDT [facility] Papanicolaou smear specimen (specimen) CERVIX UTERI STRUCTURE / Unknown 09/10/2021 16:01 EDT 09/11/2021 8:31 EDT Provider Outr Resulting Lab MICROBIOLOGY - GENERAL ORDERABLES [facility] [address] [place] [address] documented in this encounter Visit Diagnoses Not on filedocumented in this encounter Care Teams Dog Handler Relationship Specialty Start Date End Date Unknown, Provider, PCP - General 11/09/19 Tom Teague MD 11/09/19 documented as of this encounter
[2024-09-22 19:21] LABS: Specimen WB Whole Blood
== END 2024-09-09 02:34 | disposition home or self-care (01) ==
LOC: LBO 02:41
PROVIDERS: Visit Provider Advanced Practice Midwife
DX: Z34.91 Encounter for supervision of normal pregnancy, unspecified, first trimester (principal); E84.9 Cystic fibrosis, unspecified
CPT/HCPCS: 36415; 81220; 81222

== ENCOUNTER 2024-10-18 11:08 | Outpatient (REF) | payer MEDICAID, SELFPAY | END 2024-10-18 11:09 | disposition home or self-care (01) | LOC: LBN 11:08 | PROVIDERS: Visit Provider Advanced Practice Midwife | DX: N39.0 Urinary tract infection, site not specified (principal); B96.20 Unspecified Escherichia coli [E. coli] as the cause of diseases classified elsewhere; Z34.92 Encounter for supervision of normal pregnancy, unspecified, second trimester | CPT/HCPCS: 87086 ==

== ENCOUNTER 2024-11-22 16:16 | Outpatient (CLI) | payer MEDICAID, SELFPAY ==
--- OUTSIDE RECORDS SUMMARY | 2024-11-22 16:18 | XMS_ITS | Clinical Summary ---
Author Organization [facility] Address [address] [place] [address] Care Team Providers Care Autocutter Name Role Phone Unknown, Provider Primary Care Provider Tom Edwards MD Unavailable Unavailable Encounters Date Type Department Care Team Description 08/24/2024 Lab Requisition [facility] Pathology & Laboratory [address] [address] Outr Resulting Lab, Provider 08/24/2024 Lab Requisition [facility] Pathology Laboratory [address] [address] Outr Resulting Lab, Provider 08/24/2024 Lab Requisition [facility] Pathology Laboratory [address] [address] Outr Resulting Lab, Provider 08/24/2024 Lab Requisition [facility] Pathology & Laboratory [address] [address] Outr Resulting Lab, Provider from Last 3 Months Social History Tobacco Use Types Packs/Day Years Used Date Smoking Tobacco: Never Assessed Interpersonal Safety Answer Date Record ed Physically Hurt Never 06/14/2020 Verbally Threaten Not on file 06/14/2020 Comments Unknown Sex and Gender Information Value Date Recorded Sex Assigned at Not on file Legal Sex Female 18:21 EST Gender Identity Not on file Sexual Orientation [...] AMPLIFIED NUCLEIC ACID Routine 08/24/2024 14:20 EDT from Last 3 Months Results * HEPATITIS C AB W REFLEX TO HCV RNA BY PCR (08/24/2024 15:02 EDT) Hep C Antibody Negative Negative 08/24/2024 23:38 EDT [facility] Blood VENOUS BLOOD / Unknown 08/24/2024 15:02 EDT 08/24/2024 21:52 EDT us Provider Outr Resulting Lab CHEMISTRY & BLOOD GA S ORDERABLES Final Result [facility] [address] [place], [place] [id number] * RUBELLA IGG ANTIBODY (08/24/2024 15:02 EDT) Rubella IgG Ab Negative See Note 08/25/2024 10:31 EDT [facility] Comment:Sample is considered negative for IgG antibodies to Rubella virus. A negative result presumes that immunity has not been acquired. If exposure to Rubella virus is suspected despite a negative finding, a second specimen should be collected and tested for Rubella IgG Ab one or two weeks later. Blood VENOUS BLOOD / Unknown 08/24/2024 15:02 EDT 08/24/2024 21:52 EDT us Provider Outr Resulting Lab CHEMISTRY & BLOOD GA S ORDERABLES Final Result Performing Organization Address [facility]/ZIP Co de Phone Number [facility] [address] [place] [address] * HEPATITIS B SURFACE ANTIGEN (08/24/2024 15:02 EDT) Hep B Surface Ag Negative Negative 08/24/2024 22:58 EDT [facility] Blood VENOUS BLOOD / Unknown 08/24/2024 15:02 EDT 08/24/2024 21:52 EDT us Provider Outr Resulting Lab CHEMISTRY & BLOOD GA S ORDERABLES Final Result Performing Organization Address [facility] [[email or web address]] Co de Phone Number [facility] [address] [place] [phone] * VARICELLA IGG ANTIBODY (08/24/2024 15:02 EDT) Pathologist [facility] Varicella IgG Ab Positive See Note 08/25/2024 10:29 EDT [facility] Comment:Presence of detectab le Varicella Zoster virus IgG antibodies. Blood VENOUS BLOOD / Unknown 08/24/2024 15:02 EDT 08/24/2024 21:52 EDT us Provider Outr Resulting Lab IMMUNOLOGY AND SEROL OGY ORDERABLES Final Result Performing Organization Address [facility] [[email or web address]] Co de Phone Number [facility] [address] [place], [place] [phone] * HIV 1/2 ANTIGEN AND ANTIBODY, 4TH GENERATION (08/24/2024 15:02 EDT) HIV 1 and 2 Antibody/p24 Antigen, 4th Generation Negative Negative 08/24/2024 23:31 EDT [facility] Comment:If acute HIV-1 infec tion is suspected in a high risk patient, submit plasma specimen for HIV-1 RNA quantitation test. Blood VENOUS BLOOD / Unknown 08/24/2024 15:02 EDT 08/24/2024 21:52 EDT Narrative [facility] - 08/24/2024 23:31 EDT Fourth Generation assay performed on the Siemens Omnioxaur XPT. us Provider Outr Resulting Lab IMMUNOLOGY AND SEROL OGY ORDERABLES Final Result [facility] [address] [place], [place] [address] * CHLAMYDIA/N. GONORRHOEAE AMPLIFIED NUCLEIC ACID (08/24/2024 14:20 EDT) Neisseria gonorrhoeae Result Negative Negative 08/25/2024 12:46 EDT [facility] Chlamydia trachomatis Result Negative Negative 08/25/2024 12:46 EDT [facility] Swab VAGINAL STRUCTURE / Unknown 08/24/2024 14:20 EDT 08/24/2024 23:31 EDT us Provider Outr Resulting Lab MICROBIOLOGY - GENER AL ORDERABLES Final Result Performing Organization Address City/[facility]/ZIP Co de Phone Number [facility] [address] [place], [place] [address] from Last 3 Months Insurance [place]ID [place] Care Teams Autocutter Relationship Specialty Start Date End Date Unknown, Provider, PCP - General 11/09/19 Tom Teague MD 11/09/19
--- OUTSIDE RECORDS SUMMARY | 2024-11-22 16:18 | XMS_ITS | Encounter Summary ---
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 [address] OBSTETRICS [place] [address] [facility] [address] [place] [phone] Referral ID Status Reason Start Date Expiration Date Visits Requested Visits Authorized [id number] Authorized Consult Only 11/03/2024 11/03/2025 1 1 Reason for Visit * Consultation (Urgent) - Closed Specialty Diagnoses / Procedures Referred By Contac t Referred To Contact Obstetrics and Gynecology Diagnoses Encounter for supervision of normal , antepartum, unspecified Cystic fibrosis carrier Detail Morph 10/07-10/20 GC Next Available CYSTIC FIBROSIS CARRIER FOB ALSO CARRIER Dolores Hay, NAY [address] [place] [address] [place] [address] [facility] Security Trainer [address] [place] [address] Referral ID Status Reason Start Date Expiration Date V isits Requested Visits Authorized [id number] Closed Consult, Test & Treat PCP Updated and/or Approved 09/07/2024 09/07/2025 6 6 Encounter Details Date Type Department Care Team (Late st Contact Info) Description 10/14/2024 11:00 AM EST Office Visit Obstetrics [place] [phone] Alva Sandhu MD 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 and possibly affecting fetus, antepartum, single or unspecified fetus Social History Tobacco Use Types Packs/Day Years Used Date Smoking Tobacco: Never Smokeless Tobacco: Never Tobacco Cessation:Counseling Given: Not Answered Alcohol Use Standard Drinks/Week Comments Never 0 (1 standard drink = 0.6 oz pur e alcohol) Estimated Date of Delivery Comme nts Yes 03/03/2025 Sex and Gender Information Value Date Recorded Sex Assigned at Not on file Gender Identity Not on file Sexual Orientation Not on file documented as of this encounter Last Filed Vital Signs Vital Sign Reading Time Taken Comments Blood Pressure 113/62 10/14/2024 11:28 AM EST Pulse - - Temperature - - Respiratory Rate - - Oxygen Saturation - - Inhaled Oxygen Concentration - - Weight 79.4 kg (175 lb 1.6 oz) 10/14/2024 11:28 AM EST Height - - Body Mass Index - - documented in this encounter Progress Notes * Alva Sandhu MD - 10/14/2024 11:00 AM EST Diagnosis/Maternal Medicine Consult Note Radha Hankins is a 29 y.o. year old female who is at 20w0d gestation. She is seen in consultation at the request of Dolores Hay CNM for evaluation of family history of cystic fibrosis carrier status. She was seen today for maternal- medicine consultation, ultrasound evaluation. Both parent a known cystic fibrosis carriers. Review of Systems Constitutional:feels well Movement: normal Contractions: none Leaking: None Bleeding: None There are no problems to display for this patient. Past Medical History: Diagnosis Date Cystic fibrosis carrier PCOS (polycystic ovarian syndrome) Past Surgical History: Procedure Laterality Date WISDOM TOOTH EXTRACTION Family History Problem Relation Age of Onset Genetic Disorder Father of Baby CF carrier Social History Occupational History Not on file Tobacco Use Smoking status: Never Smokeless tobacco: Never Substance and Sexual Activity Alcohol use: Never Drug use: Never Sexual activity: Not on file OB History 3 Para 1 Term 1 AB 1 Living 1 SAB 1 IAB Ectopic Multiple Live Births 1 # Outc Date GA Lbr Jose J/2nd Wgt Sex Type Anes PTL Lv 1 SAB 2015 2 Term 12/2016 2.977 kg (6 lb 9 oz) F Vag-Spont Living 3 Current No current outpatient medications on file. No current facility-administered medications for this visit. Allergies Allergen Reactions Amoxicillin Hives Penicillins Hives Sulfa (Sulfonamide Antibiotics) Ultrasound Date: 10/14/2024 Amniotic fluid volume normal Presentation variable Placenta anterior Growth appropriate for gestational age anatomy unremarkable Physical Exam BP 113/62 Wt 79.4 kg (175 lb 1.6 oz) General: alert, well appearing, in no apparent distress HEENT: normocephalic, atraumatic Abdomen: Soft, gravid, non-tender Neurologic:alert, oriented, normal speech, no focal findings or movement disorder noted Psychiatric: Affect is Appropriate. Assessment and Recommendations: 29 y.o. year old female at 20w0d weeks gestation, referred for counseling regarding family history of cystic fibrosis carrier status. I spent 30 minutes in face to face time with the patient of which 80% was in direct counseling, and a total of 10 minutes in patient care reviewing records and discussing her with other consultants. We reviewed the history and ultrasound findings in detail as well as the limitations of ultrasound in detecting anomalies and aneuploidy. The growth, fluid, placenta and anatomy appear unremarkable. We reviewed the risk for inheritance of cystic fibrosis of 25% given both parents are known carriers and the option for diagnosis with amniocentesis. They declined further diagnosis at this time. The and findings and complications of cystic fibrosis can include meconium ileus with echogenic bowel. I recommend a follow up ultrasound at 32 weeks to reassess growth and the bowel. If concerns for meconium ileus are found delivery may be best in center with pediatric specialists in cystic fibrosis. They would like to meet with the cystic fibrosis clinic preconception to plan for management if the baby is ultimately diagnosed with cystic fibrosis. I appreciate the opportunity to be involved in this patients care, and am available if further questions should arise. ALVA SANDHU MD 10/14/2024 Cc: Dolores Hay DOMINGO [address] [place] [address] , with copy of ultrasound report documented in this encounter Plan of Treatment Upcoming Encounters Date Type Department Care Team (Late st Contact Info) Description 11/23/2024 1:00 PM EST TH Visit (TeleHealth) Pediatric Pulmonology at [address] [phone] Robe Bae MD [address] [address] [place] [address] 01/06/2025 10:00 AM EST Routine Obstetrics [place] [address] Alva Sandhu MD [facility] DR OBSTETRICS [place] [address] 01/06/2025 10:30 AM EST Clinical Support Obstetrics [place] [address] Educator, Alice None 03/20/2025 1:00 PM EDT Office Visit Medical Genetics at [address] [phone] Nataly Vann, [facility] 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
--- OUTSIDE RECORDS SUMMARY | 2024-11-22 16:18 | XMS_ITS | Encounter Summary ---
[place] [address] Care Team Providers Care Cnp Name Role Phone Unavailable Primary Care Provider Unavailabl e Reason for Referral * Diagnostic Test (Routine) - Closed Specialty Diagnoses / Procedures Referred By Contac t Referred To Contact Radiology Diagnoses Cystic fibrosis carrier Planned Procedures US OB Detailed Morphology Stevenson Hay CNM [address] [place] [address] [address] [place] [address] [place] [address] Referral ID Status Reason Start Date Expiration Date V isits Requested Visits Authorized [id number] Closed Specialty Service Requested 09/22/2024 03/22/2026 1 1 Reason for Visit * Diagnostic Test (Routine) - Closed Specialty Diagnoses / Procedures Referred By Contac t Referred To Contact Radiology Diagnoses Cystic fibrosis carrier Planned Procedures US OB Detailed Morphology Stevenson Hay CNM [address] [place] [address] [address] [place] [address] [place] [address] Referral ID Status Reason Start Date Expiration Date V isits Requested Visits Authorized [id number] Closed Specialty Service Requested 09/22/2024 03/22/2026 1 1 Encounter Details Date Type Department Care Team (Latest Contact Info) Description 10/14/2024 9:29 AM EST - 10/14/2024 11:59 PM EST Hospital Encounter [place] [address] Stevenson Hay, [facility] [address] [place] [address] Cystic fibrosis carrier; Planned Discharge Disposition: Home Social History Tobacco Use Types Packs/Day Years Used Date Smoking Tobacco: Never Smokeless Tobacco: Never Alcohol Use Standard Drinks/Week Comments Never 0 (1 standard drink = 0.6 oz pur e alcohol) Estimated Date of Delivery Comme nts Yes 03/03/2025 Sex and Gender Information Value Date Recorded Sex Assigned at Not on file Gender Identity Not on file Sexual Orientation Not on file documented as of this encounter Plan of Treatment Upcoming Encounters Date Type Department Care Team (Late st Contact Info) Description 11/23/2024 1:00 PM EST TH Visit (TeleHealth) Pediatric Pulmonology at [address] [phone] Robe Bae MD [address] [place] [address] [place] [address] 01/06/2025 10:00 AM EST Routine Obstetrics [place] [phone] Rehana Omer MD [facility] [address] OBSTETRICS [place] [address] 01/06/2025 10:30 AM EST Clinical Support Obstetrics [place] [address] Educator, [place] None 03/20/2025 1:00 PM EDT Office Visit Medical Genetics at [address] [phone] Nataly Vann, [facility] [place] [address] documented as of this encounter Procedures Procedure Name Priority Date/Time Associated Diagnosis Comments US OB DETAILED MORPHOLOGY Routine 10/14/2024 10:46 AM EST Cystic fibrosis carrier Planned documented in this encounter Results * US OB Detailed Morphology (10/14/2024 10:46 AM EST) WORKSTATION ID [id number] DH RAD Anatomical Region Laterality Modality Pelvis, Abdomen Ultrasound 10/14/2024 10:0 6 AM EST Impressions 10/14/2024 11:13 AM EST 2nd Trimester - Detailed Morphology - Summary Single intrauterine with a gestational age of 20w 0d based on Early Ultrasound ??(07/25/24) Composite age based on the current ultrasound alone is 20w 4d. Current growth parameters are consistent with prior dating indicating normal growth. Amniotic fluid volume is subjectively normal Detailed anatomic evaluation was performed and no structural abnormalities are noted. Thank you for letting us participate in the care of this patient. If you are a health care provider and have any questions regarding this report, please contact the number above. For patients who have questions, please contact the health prompt care rn that requested your imaging first. ?Rehana Omer, Staff Physician Electronically Signed Final Report ?? 10/14/2024 11:12 am Narrative 10/14/2024 11:13 AM EST OBSTETRICS REPORT ?(Signed Final 10/14/2024 11:12 am) PATIENT INFO: ID #: ? [id number] ?: ??[birth year] (29 yrs)(F) Name: ? RADHA HANKINS ? Visit Date: 10/14/2024 10:06 am PERFORMED BY: Attending: ?Kan JONES, Rehana Castañeda Performed By: ? Irma KELSEY, ??Elisa Referred By: ?STEVENSON HAY Location: ? [place] SERVICE(S) PROVIDED: [facility] - Detailed Morphology - [id number] ? [id number] INDICATIONS: 20 weeks gestation of ?Z3A.20 CF CARRIER, FOB ALSO CARRIER EVALUATION: Num Of Fetuses: ? 1 Heart Rate(bpm): ??152 Cardiac Activity: ? Observed, normal rhythm Presentation: ? Variable Placenta: ? Anterior P. Cord Insertion: ?Within Normal Limits Amniotic Fluid KD FV: ?subjectively normal --------- BIOMETRY: --------- BPD: ?47.9 ??mm ? G.Age: ?? 20w 3d OFD: ?63.6 ??mm HC: ?178.8 ??mm ? G.Age: ?? 20w 2d AC: ?157.4 ??mm ? G.Age: ?? 20w 6d FL: ? 33.2 ??mm ? G.Age: ?? 20w 3d HUM: ?32.4 ??mm ? G.Age: ?? 20w 6d CER: ?21.5 ??mm ? G.Age: ?? 20w 4d NFT: ? 4.7 ??mm NB: ?7.4 ??mm LV: ?7.8 ??mm CM: ?4.9 ??mm CI: ?75.3 ??% ? 70 - 86 FL/HC: ? 18.6 ??% ? 16.8 - 19.8 HC/AC: ? 1.14 ?1. - FL/BPD: ?69.3 ??% FL/AC: ? 21.1 ??% ? Est. FW: ? 366 ??gm ?0 lb 13 oz OB HISTORY: : ?3 GESTATIONAL AGE: U/S Today: ? 20w 4d ?KRISTINE: ?? 02/27/25 Best: ?20w 0d ?? Det. By: ??Early ?KRISTINE: ?? 03/03/25 ? Ultrasound ? (07/25/24) TARGETED ANATOMY: Central Nervous System Calvarium/Cranial V.: ??Within Normal Limits Intracranial Malia: ? Within Normal Limits Cavum: ? Within Normal Limits Parenchyma: ?Within Normal Limits Lateral Ventricles: ?Within Normal Limits Choroid Plexus: ?Within Normal Limits Cereb./Vermis: ? Within Normal Limits Cisterna Magna: ?Within Normal Limits Midline Falx: ?Within Normal Limits Spine Cervical: ?Visualized Thoracic: ?Visualized Lumbar: ?Visualized Sacral: ?Visualized Shape/Curvature: ? Visualized Head/Neck Face: ?Within Normal Limits Lips: ?Within Normal Limits Neck: ?Within Normal Limits Nuchal Fold: ? Within Normal Limits Nasal Bone: ?Present Profile: ? Visualized Orbits/Eyes: ? Visualized Mandible: ?Visualized Maxilla: ? Visualized Thorax Thoracic Contour: ?Within Normal Limits Lungs: ? Visualized 4 Chamber View: ?Within Normal Limits Cardiac Activity: ?Normal Rhythm Rt Outflow Tract: ?Visualized Lt Outflow Tract: ?Visualized Aortic Arch: ? Visualized Ductal Arch: ? Visualized SVC: ? Visualized Cardiac [place]: ?Visualized Diaphragm: ? Visualized 3 Vessel View: ? Visualized IVC: ? Visualized Abdomen Ventral Wall: ?Visualized Cord Insertion: ?Visualized Situs: ? Normal Stomach: ? Visualized Liver: ? Visualized Lt Kidney: ? Visualized Rt Kidney: ? Visualized Bladder: ? Visualized Bowel: ? Visualized Extremities Lt Humerus: ?Within Nomal Limits Rt Humerus: ?Within Normal Limits Lt Forearm: ?Within Normal Limits Rt Forearm: ?Within Normal Limits Lt Hand: ? Within Normal Limits Rt Hand: ? Within Normal Limits Lt Femur: ?Within Normal Limits Rt Femur: ?Within Normal Limits Lt Lower Leg: ?Within Normal Limits Rt Lower Leg: ?Within Normal Limits Lt Foot: ? Visualized Rt Foot: ? Visualized Other Umbilical Cord: ?3 vessel cord Genitalia: ? Male CERVIX UTERUS ADNEXA: Right Ovary Size(cm) ? 4.2 ??x ?? 2.7 ?x ??2.4 ? Vol(ml): 14.3 Visualized Left Ovary Size(cm) ? 4.2 ??x ?? 3.0 ?x ??2.5 ? Vol(ml): 16.5 Visualized Procedure Note Rehana Omer MD - 10/14/2024 OBSTETRICS REPORT (Signed Final 10/14/2024 11:12 am) PATIENT INFO: ID #: [id number] : [birth year] (29 yrs)(F) Name: RADHA HANKINS Visit Date: 10/14/2024 10:06 am PERFORMED BY: Attending: Rehana Omer MD Performed By: Elisa Solis RDMS Referred By: STEVENSON HAY Location: [place] SERVICE(S) PROVIDED: [facility] - Detailed Morphology - [id number] INDICATIONS: 20 weeks gestation of Z3A.20 CF CARRIER, FOB ALSO CARRIER EVALUATION: Num Of Fetuses: 1 Heart Rate(bpm): 152 Cardiac Activity: Observed, normal rhythm Presentation: Variable Placenta: Anterior P. Cord Insertion: Within Normal Limits Amniotic Fluid KD FV: subjectively normal --------- BIOMETRY: --------- BPD: 47.9 mm G.Age: 20w 3d OFD: 63.6 mm HC: 178.8 mm G.Age: 20w 2d AC: 157.4 mm G.Age: 20w 6d FL: 33.2 mm G.Age: 20w 3d HUM: 32.4 mm G.Age: 20w 6d CER: 21.5 mm G.Age: 20w 4d NFT: 4.7 mm NB: 7.4 mm LV: 7.8 mm CM: 4.9 mm CI: 75.3 % 70 - 86 FL/HC: 18.6 % 16.8 - 19.8 HC/AC: 1.14 1.09 - 1.39 FL/BPD: 69.3 % FL/AC: 21.1 % 20 - 24 Est. FW: 366 gm 0 lb 13 oz OB HISTORY: : 3 GESTATIONAL AGE: U/S Today: 20w 4d KRISTINE: 02/27/25 Best: 20w 0d Det. By: Early KRISTINE: 03/03/25 Ultrasound (07/25/24) TARGETED ANATOMY: Central Nervous System Calvarium/Cranial V.: Within Normal Limits Intracranial Malai: Within Normal Limits Cavum: Within Normal Limits Parenchyma: Within Normal Limits Lateral Ventricles: Within Normal Limits Choroid Plexus: Within Normal Limits Cereb./Vermis: Within Normal Limits Cisterna Magna: Within Normal Limits Midline Falx: Within Normal Limits Spine Cervical: Visualized Thoracic: Visualized Lumbar: Visualized Sacral: Visualized Shape/Curvature: Visualized Head/Neck Face: Within Normal Limits Lips: Within Normal Limits Neck: Within Normal Limits Nuchal Fold: Within Normal Limits Nasal Bone: Present Profile: Visualized Orbits/Eyes: Visualized Mandible: Visualized Maxilla: Visualized Thorax Thoracic Contour: Within Normal Limits Lungs: Visualized 4 Chamber View: Within Normal Limits Cardiac Activity: Normal Rhythm Rt Outflow Tract: Visualized Lt Outflow Tract: Visualized Aortic Arch: Visualized Ductal Arch: Visualized SVC: Visualized Cardiac [place]: Visualized Diaphragm: Visualized 3 Vessel View: Visualized IVC: Visualized Abdomen Ventral Wall: Visualized Cord Insertion: Visualized Situs: Normal Stomach: Visualized Liver: Visualized Lt Kidney: Visualized Rt Kidney: Visualized Bladder: Visualized Bowel: Visualized Extremities Lt Humerus: Within Nomal Limits Rt Humerus: Within Normal Limits Lt Forearm: Within Normal Limits Rt Forearm: Within Normal Limits Lt Hand: Within Normal Limits Rt Hand: Within Normal Limits Lt Femur: Within Normal Limits Rt Femur: Within Normal Limits Lt Lower Leg: Within Normal Limits Rt Lower Leg: Within Normal Limits Lt Foot: Visualized Rt Foot: Visualized Other Umbilical Cord: 3 vessel cord Genitalia: Male CERVIX UTERUS ADNEXA: Right Ovary Size(cm) 4.2 x 2.7 x 2.4 Vol(ml): 14.3 Visualized Left Ovary Size(cm) 4.2 x 3.0 x 2.5 Vol(ml): 16.5 Visualized IMPRESSION 2nd Trimester - Detailed Morphology - Summary Single intrauterine with a gestational age of 20w 0d based on Early Ultrasound (07/25/24) Composite age based on the current ultrasound alone is 20w 4d. Current growth parameters are consistent with prior dating indicating normal growth. Amniotic fluid volume is subjectively normal Detailed anatomic evaluation was performed and no structural abnormalities are noted. Thank you for letting us participate in the care of this patient. If you are a health care provider and have any questions regarding this report, please contact the number above. For patients who have questions, please contact the health prompt care rn that requested your imaging first. Rehana Omer, Staff Physician Electronically Signed Final Report 10/14/2024 11:12 am Stevenson Hay CNM IMG US OB ORDERABLE S documented in this encounter Visit Diagnoses Diagnosis Cystic fibrosis carrier Cystic fibrosis gene carrier Planned state, incidental documented in this encounter
--- OUTSIDE RECORDS SUMMARY | 2024-11-22 16:18 | XMS_ITS | Referral Summary ---
Author Organization [facility] Address [address] [place] [address] Care Team Providers Care Subcontract Administrator Name Role Phone Unknown, Provider Primary Care Provider Tom Edwards MD Unavailable Unavailable Encounters Date Type Department Care Team Description 08/24/2024 Lab Requisition [facility] [address] [address] Outr Resulting Lab, Provider 08/24/2024 Lab Requisition [facility] [address] [address] Outr Resulting Lab, Provider 08/24/2024 Lab Requisition [facility] [address] [address] Outr Resulting Lab, Provider 08/24/2024 Lab Requisition [facility] [address] [address] Outr Resulting Lab, Provider from Last 3 [...] C Antibody Negative Negative 08/24/2024 23:38 EDT [facility] Blood VENOUS BLOOD / Unknown 08/24/2024 15:02 EDT 08/24/2024 21:52 EDT us Provider Outr Resulting Lab CHEMISTRY & BLOOD GA S ORDERABLES Final Result [facility] [address] [place] [address] * RUBELLA IGG ANTIBODY (08/24/2024 15:02 EDT) Rubella IgG Ab Negative See Note 08/25/2024 10:31 EDT [facility] Comment:Sample is considered negative [...] S ORDERABLES Final Result Performing Organization Address [facility]/ZIP Co de Phone Number [facility] [address] [place] [address] * HEPATITIS B SURFACE ANTIGEN (08/24/2024 15:02 EDT) Hep B Surface Ag Negative Negative 08/24/2024 22:58 EDT [facility] Blood VENOUS BLOOD / Unknown 08/24/2024 15:02 EDT 08/24/2024 21:52 EDT us Provider Outr Resulting Lab CHEMISTRY & BLOOD GA S ORDERABLES Final Result Performing Organization Address [facility] Co de Phone Number [facility] [address] [place] [phone] * VARICELLA IGG ANTIBODY (08/24/2024 15:02 EDT) Varicella IgG Ab Positive See Note 08/25/2024 10:29 EDT [facility] Comment:Presence of detectab le Varicella Zoster virus IgG antibodies. Blood VENOUS BLOOD / Unknown 08/24/2024 15:02 EDT 08/24/2024 21:52 EDT us Provider Outr Resulting Lab IMMUNOLOGY AND SEROL OGY ORDERABLES Final Result Performing Organization Address [facility]/ZIP Co de Phone Number [facility] [address] [place] [phone] * HIV 1/2 ANTIGEN AND ANTIBODY, 4TH GENERATION (08/24/2024 15:02 EDT) HIV 1 and 2 Antibody/p24 Antigen, 4th Generation Negative Negative 08/24/2024 23:31 EDT [facility] Comment:If acute HIV-1 infec tion is suspected in a high risk patient, submit plasma specimen for HIV-1 RNA quantitation test. Blood VENOUS BLOOD / Unknown 08/24/2024 15:02 EDT 08/24/2024 21:52 EDT Narrative [facility] - 08/24/2024 23:31 EDT Fourth Generation assay performed on the Siemens [email or web address] XPT. us Provider Outr Resulting Lab IMMUNOLOGY AND SEROL OGY ORDERABLES Final Result [facility] [address] [place] [address] * CHLAMYDIA/N. GONORRHOEAE AMPLIFIED NUCLEIC ACID (08/24/2024 14:20 EDT) Neisseria gonorrhoeae Result Negative Negative 08/25/2024 12:46 EDT [facility] Chlamydia trachomatis Result Negative Negative 08/25/2024 12:46 EDT [facility] Swab VAGINAL STRUCTURE / Unknown 08/24/2024 14:20 EDT 08/24/2024 23:31 EDT us Provider Outr Resulting Lab MICROBIOLOGY - GENER AL ORDERABLES Final Result Performing Organization Address City/[facility]/ZIP Co de Phone Number [facility] [address] [place] [address] from Last 3 Months Insurance MEDICAID [facility] Care Teams Subcontract Administrator Relationship Specialty Start Date End Date Unknown, Provider, PCP - General 11/09/19 Tom Teague MD 11/09/19
--- OUTSIDE RECORDS SUMMARY | 2024-11-22 16:18 | XMS_ITS | Encounter Summary ---
Author Organization [facility] Address [address] [place] [address] Care Team Providers Care Through Freight Engineer Name Role Phone Unknown, Provider Primary Care Provider Tom Edwards MD Unavailable Unavailable Encounter Details Date Type Department Care Team (Late st Contact Info) Description 08/24/2024 Lab Requisition [facility] Pathology & Laboratory Medicine - [address] [address] Outr Resulting Lab, Provider Social History Tobacco [...] gonorrhoeae Result Negative Negative 08/25/2024 12:46 EDT [facility] Chlamydia trachomatis Result Negative Negative 08/25/2024 12:46 EDT [facility] Swab VAGINAL STRUCTURE / Unknown 08/24/2024 14:20 EDT 08/24/2024 23:31 EDT us Provider Outr Resulting Lab MICROBIOLOGY - GENER AL ORDERABLES Final Result [facility] [address] [place], [place] [id number] documented in this encounter Visit Diagnoses Not on filedocumented in this encounter Care Teams Through Freight Engineer Relationship Specialty Start Date End Date Unknown, Provider, PCP - General 11/09/19 Tom Teague MD 11/09/19 documented as of this encounter
--- OUTSIDE RECORDS SUMMARY | 2024-11-22 16:18 | XMS_ITS | Encounter Summary ---
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 and possibly affecting fetus, antepartum, single or unspecified fetus Lynn Reddy MD [facility] DR OBSTETRICS [place] [address] [facility] Genetics [address] [place] [phone] Referral ID Status Reason Start Date Expiration Date Visits Requested Visits Authorized [id number] Authorized Consult, Test & Treat 09/16/2024 09/16/2025 1 1 Reason for Visit * Reason Comments Positive Genetic Carrier Screen cystic f ibrosis * Consultation (Urgent) - Closed Specialty Diagnoses / Procedures Referred By Contac t Referred To Contact Obstetrics and Gynecology Diagnoses Encounter for supervision of normal , antepartum, unspecified Cystic fibrosis carrier Detail Morph 10/07-10/20 GC Next Available CYSTIC FIBROSIS CARRIER FOB ALSO CARRIER Dolores Hay CNM [address] [place] [address] [facility] Health Associate [address] [place] [phone] Referral ID Status Reason Start Date Expiration Date V isits Requested Visits Authorized [id number] Closed Consult, Test & Treat PCP Updated and/or Approved 09/07/2024 09/07/2025 6 6 Encounter Details Date Type Department Care Team (Latest Contact Info) Description 09/16/2024 10:00 AM EST TH Visit (TeleHealth) Obstetrics and Gynecology at [facility] [place] [address] Edmundo Guardado, 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 female currently at 16w0d gestation. I met with Radha fora 68-minute genetic counseling video visit. She was located in [place] at the time of the visit. Her partner, Royce Guerra, was also present. Referring Provider: Dolores Hay [facility] [address] [place] [address] [place] [address] Chief Concern Patient presents with Positive Genetic Carrier Screen cystic fibrosis History of Chief Concern Radha reports that she had a positive cystic fibrosis carrier screen in 2015. At the time, she was receiving her care through [facility] in [place], [place]. She has been unable to get any records from their office. Repeat testing was ordered by her plant protection guard and collected on 09/09/2024;results are pending. Royce had cystic fibrosis carrier screening ordered by Radha's plant protection guard and collected on 08/24/2024. I requested that the report be faxed to me, but I have not received it as of the time of this visit. 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 Patient History Past Medical History: Diagnosis Date PCOS (polycystic ovarian syndrome) Family History Royce's sister has a son (age 9) with cystic fibrosis. They live in [place]. OB History # Outcome Date GA Lbr Jose J/2nd Weight Sex Type Anes PTL Lv 3 Current 2 Term 01/01/17 2.977 kg (6 lb 9 oz) F Vag-Spont EFRAÍN Name: Shaina 2015 Estimated Date of Delivery: 03/03/2025 based on ultrasound (8w 3d on 07/25/2024). Genetic Screening Results Test Result Panorama screen Low risk for common aneuploidies and triploidy, male fetus Cystic fibrosis carrier screen Positive in 2015, report not available. Repeat test pending. Spinal muscular atrophy carrier screen No report provided Thalassemia carrier screen Within normal limits (MCV 92 fL) Assessment 1. Cystic fibrosis carrier couple: We reviewed the autosomal recessive inheritance of cystic fibrosis. 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 Radha is purportedly a carrier pending confirmation. Assuming that this is confirmed, then there is a 25% chance that their fetus inherited both pathogenic variants. I provided a basic overview of the common respiratory, gastrointestinal, and reproductive manifestations. Severity of symptoms is variable, even among individuals with the same genotype, but some predictions may be made once Radha's variant is known. Affected individuals with at least one copy of the [id number] variant are eligible for CFTR modulator therapy. Males with cystic fibrosis are often infertile (but not sterile) due to congenital bilateral absence of the vas deferens. I offered referral to our Cystic Fibrosis [facility] for discussion of management. A detailed ultrasound is recommended to evaluate for bowel anomalies. Diagnostic testing of the fetus is recommended, either prenatally or postnatally. We discussed the option of amniocentesis, its risks, and the benefit of a positive or negative result in guiding management, including termination decisions. Radha declines amniocentesis. I offered referral to our Medical Genetics program to facilitate diagnostic testing of the , which she accepted. We discussed that screening is not a substitution for diagnostic testing; affected newborns can have a false negative screen, and carrier newborns are more likely to have a false positive screen. Radha has a nsuio-habb-nuv daughter from a previous relationship. Her daughter has a 50% chance of being a carrier and can request carrier testing when she is adult. I encouraged Radha to save her forthcoming test results and share them with her daughter in the future. Plan Detailed ultrasound at 19-20 weeks. Message sent to secretaries for scheduling. Interested in consult with the Cystic Fibrosis Center. Referral NOT made today. Referral placed to Medical Genetics for diagnostic testing. documented in this encounter Plan of Treatment Upcoming Encounters Date Type Department Care Team (Late st Contact Info) Description 11/23/2024 1:00 PM EST TH Visit (TeleHealth) Pediatric Pulmonology at [address] [address] Robe Bae MD [address] [place] [address] [place] [address] 01/06/2025 10:00 AM EST Routine Obstetrics [place] [address] Rehana Omer MD [facility] DR OBSTETRICS [place] [address] 01/06/2025 10:30 AM EST Clinical Support Obstetrics [place] [address] Educator, [place] Art 03/20/2025 1:00 PM EDT Office Visit Medical Genetics at [address] [phone] [facility] [address] 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
--- OUTSIDE RECORDS SUMMARY | 2024-11-22 16:18 | XMS_ITS | Encounter Summary ---
Author Organization [facility] [place] [address] Care Team Providers Care Driver Education Instructor Name Role Phone Unavailable Primary Care Provider Unavailabl e Encounter Details Date Type Department Care Team (Latest Contact Info) Description 10/14/2024 Travel Social History Tobacco Use Types Packs/Day Years [...] EST TH Visit (TeleHealth) Pediatric Pulmonology at [address] [phone] Robe Bae MD [address] [place] [address] [place] [address] 01/06/2025 10:00 AM EST Routine Obstetrics [place] [phone] Rehana Omer MD [facility] DR OBSTETRICS [place] [address] 01/06/2025 10:30 AM EST Clinical Support Obstetrics [place] [phone] Educator, [place] Art 03/20/2025 1:00 PM EDT Office Visit Medical Genetics at [address] [address] Nataly Vann, [facility] [place] [address] documented as of this encounter Visit Diagnoses Not on filedocumented in this encounter
--- OUTSIDE RECORDS SUMMARY | 2024-11-22 16:18 | XMS_ITS | Encounter Summary ---
[place] [address] Care Team Providers Care Ordnance Mechanic Name Role Phone Unavailable Primary Care Provider Unavailabl e Reason for Referral * Consultation (Urgent) - Closed Specialty Diagnoses / Procedures Referred By Contac t Referred To Contact Obstetrics and Gynecology Diagnoses Encounter for supervision of normal , antepartum, unspecified Cystic fibrosis carrier Detail Morph 10/07-10/20 Next Available CYSTIC FIBROSIS CARRIER FOB ALSO CARRIER Dolores Hay CNM [address] [place] [address] [address] [place] [address] [facility] Scanning Tech [address] [address] Referral ID Status Reason Start Date Expiration Date V isits Requested Visits Authorized [id number] Closed Consult, Test & Treat PCP Updated and/or Approved 09/07/2024 09/07/2025 6 6 Encounter Details Date Type Department Care Team (Late st Contact Info) Description 09/07/2024 Transcribe Orders eDH Incoming Referrals [phone] Dolores Hay CNM [address] [place] [address] [address] [place], [place] [id number] Encounter for supervision of normal , antepartum, [...] EST TH Visit (TeleHealth) Pediatric Pulmonology at [address] [phone] Robe Bae MD [address] [place] [address] [place] [address] 01/06/2025 10:00 AM EST Routine Obstetrics [place] [address] Rehana Omer MD [facility] DR [place]STET[place] [address] 01/06/2025 10:30 AM EST Clinical Support Obstetrics [place] [address] Educator, Alice Art 03/20/2025 1:00 PM EDT Office Visit Medical Genetics at [address] [phone] Nataly Vann, [facility] [place] [address] Scheduled Referrals Name Type Priority Associated Diagnoses [...]
--- OUTSIDE RECORDS SUMMARY | 2024-11-22 16:18 | XMS_ITS | Encounter Summary ---
Author Organization [facility] [place] [address] Care Team Providers Care Mechanics Handyman Name Role Phone Unavailable Primary Care Provider Unavailabl e Encounter Details Date Type Department Care Team (Late st Contact Info) Description 10/04/2024 Telephone Obstetrics [place] [phone] [facility] [place] [address] Social History Tobacco Use Types Packs/Day Years Used Date Smoking Tobacco: Never Assessed Estimated Date of Delivery Comme nts Yes 03/03/2025 Sex and Gender Information Value Date Recorded Sex Assigned at Not on file Gender Identity Not on file Sexual Orientation Not on file documented as of this encounter Miscellaneous Notes * Telephone Encounter - Edmundo Guardado, [facility] - 10/04/2024 2:32 PM EST Images from the original note were not included. Reproductive Genetics Phone Note Radha Hankins is a 29 y.o. female currently at 18w4d gestation. I met with Radha andher partner, Royce, on 09/16/2024 because they are both cystic fibrosis carriers. Vitos variant was unknown at the time of our visit. Since then, testing to confirm her carrier status has been completed. I called Radha to review the following results: Royce is also heterozygous for the p.F455wml variant in CFTR. Both Radha's and Royce's reports areavailable for review in her chart. There is a 25% chance that Vitos fetus is homozygous for the p.H432qxz variant, which would bepredicted to result in classic cystic fibrosis. Radha declines diagnosis. She has a detailed morphology ultrasound scheduled with us on 10/14/2024. documented in this encounter Plan of Treatment Upcoming Encounters Date Type Department Care Team (Late st Contact Info) Description 11/23/2024 1:00 PM EST TH Visit (TeleHealth) Pediatric Pulmonology at [address] [address] Robe Bae MD [address] [place] [address] [place] [address] 01/06/2025 10:00 AM EST Routine Obstetrics [place] [address] Rehana Omer MD [facility] DR OBSTETRICS [place] [address] 01/06/2025 10:30 AM EST Clinical Support Obstetrics [place] [address] Educator, [place] None 03/20/2025 1:00 PM EDT Office Visit Medical Genetics at [address] [phone] Nataly Vann [facility] [place] [address] documented as of this encounter Visit Diagnoses Not on filedocumented in this encounter
--- OUTSIDE RECORDS SUMMARY | 2024-11-22 16:18 | XMS_ITS | Clinical Summary ---
Author Organization [facility] [place] [address] Care Team Providers Care Second Rigger Name Role Phone Unavailable Primary Care Provider Unavailabl e Allergies Active Allergy Reactions Criticality Noted Date Comments Amoxicillin Hives 10/14/2024 Penicillins Hives 10/14/2024 Sulfa (Sulfonamide Antibiotics) 04/2024 Encounters Date Type Department Care Team Description 10/14/2024 11:00 AM EST Office Visit Obstetrics [place] [address] Rehana Omer MD 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 and possibly affecting fetus, antepartum, single or unspecified fetus 10/14/2024 9:29 AM EST - 10/14/2024 11:59 PM EST Hospital Encounter [place] [address] Stevenson Hay CNM Cystic fibrosis carrier; Planned Discharge Disposition: Home 10/14/2024 Travel 10/04/2024 Telephone Obstetrics [place] [address] Edmundo Guardado LGC 09/16/2024 10:00 AM EST TH Visit (TeleHealth) Obstetrics [place] [address] Edmundo Guardado LGC 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 and possibly affecting fetus, antepartum, single or unspecified fetus; Encounter for procreative genetic counseling 09/07/2024 Transcribe Orders eDH Incoming Referrals [phone] Stevenson Hay CNM Encounter for supervision of normal , antepartum, unspecified ; Cystic fibrosis carrier from Last 3 Months Family History Medical History Relation Comments Genetic Disorder Father of Baby CF carrier Relation Status Comments Father of Baby Alive Social History Tobacco Use Types Packs/Day Years [...] on file Sexual Orientation Not on file Last Filed Vital Signs Vital Sign Reading Time Taken Comments Blood Pressure 113/62 10/14/2024 11:28 AM EST Pulse - - Temperature - - Respiratory Rate - - Oxygen Saturation - - Inhaled Oxygen Concentration - - Weight 79.4 kg (175 lb 1.6 oz) 10/14/2024 11:28 AM EST Height - - Body Mass Index - - Plan of Treatment Upcoming Encounters Date Type Department Care Team (Late st Contact Info) Description 11/23/2024 1:00 PM EST TH Visit (TeleHealth) Pediatric Pulmonology at [address] [address] Robe Bae MD [address] [place] [address] [place] [address] 01/06/2025 10:00 AM EST Routine Obstetrics [place] [address] Rehana Omer MD [facility] DR OBSTETRICS [place] [address] 01/06/2025 10:30 AM EST Clinical Support Obstetrics [place] [address] Educator, Alice Art 03/20/2025 1:00 PM EDT Office Visit Medical Genetics at [address] [address] Nataly Vann, [facility] [place] [address] Health Maintenance Due Date Last Done Comments HIV screen 2013 Hepatitis C Screening 2013 Hepatitis B vaccine (0-59 yrs) (1) 2014 Tetanus/Diphtheria/Pertussis Vaccines (1 - Tdap) 03/08 PAP Smear 2016 Covid-19 Vaccine ( - season) 2024 Influenza (Flu) vaccine (1 o f 1 - Influenza standard series) 07/10/2024 RSV Vaccine (No Doses Required) Completed Procedures Procedure Name Priority Date/Time Associated Diagnosis Comments US OB DETAILED MORPHOLOGY Routine 10/14/2024 10:46 AM EST Cystic fibrosis carrier Planned LAB SCAN 09/26/2024 12:00 AM EST ULTRASOUND SCAN (SCAN) 09/06/2024 12:00 AM EDT GENETIC STUDY SCAN 08/24/2024 12 :00 AM EDT LAB SCAN 08/24/2024 12:00 AM EDT LAB SCAN 08/24/2024 12:00 AM EDT from Last 3 Months Results * US OB Detailed Morphology (10/14/2024 10:46 AM EST) WORKSTATION ID [id number] RAD Anatomical Region Laterality Modality Pelvis, Abdomen [...] who have questions, please contact the health critical care paramedic that requested your imaging first. ?Rehana Omer, Staff Physician Electronically Signed Final Report ?? 10/14/2024 11:12 am Narrative 10/14/2024 11:13 AM EST OBSTETRICS REPORT ?(Signed Final 10/14/2024 11:12 am) PATIENT INFO: ID #: ? [id number] ?: ??[birth year] (29 yrs)(F) Name: ? RADHA HANKINS ? Visit Date: 10/14/2024 10:06 am PERFORMED BY: Attending: ?Kan JONES, Rehana Castañeda Performed By: ? Irma [facility], ??Elisa Referred By: ?STEVENSON HAY Location: ? [place] SERVICE(S) PROVIDED: [facility] - Detailed Morphology - [id number] ? [id number] INDICATIONS: 20 weeks gestation of ?Z3A.20 CF [...] ? 16.8 - 19.8 HC/AC: ? 1.14 ?1.09 - 1.39 FL/BPD: ?69.3 ??% FL/AC: ? 21.1 ??% ? 20 - 24 Est. FW: ? 366 ??gm ?0 lb [...] Arch: ? Visualized SVC: ? Visualized Cardiac [place]: ?Visualized Diaphragm: ? Visualized 3 Vessel View: [...] 10/14/2024 11:12 am) PATIENT INFO: ID #: [id number] : [birth year] (29 yrs)(F) Name: RADHA HANKINS Visit Date: 10/14/2024 10:06 am PERFORMED BY: Attending: Rehana Omer MD Performed By: Elisa Solis RDMS Referred By: STEVENSON HAY Location: [place] SERVICE(S) PROVIDED: [facility] - Detailed Morphology - [id number] INDICATIONS: 20 weeks gestation of Z3A.20 CF [...] 1.39 FL/BPD: 69.3 % FL/AC: 21.1 % Est. FW: 366 gm 0 lb 13 oz OB HISTORY: : 3 GESTATIONAL AGE: U/S Today: 20w 4d KRISTINE: 02/27/25 Best: 20w 0d Det. By: Early KRISTINE: 03/03/25 Ultrasound (07/25/24) TARGETED ANATOMY: Central Nervous System Calvarium/Cranial V.: Within Normal Limits Intracranial Malia: Within Normal Limits Cavum: Within Normal Limits [...] Visualized Ductal Arch: Visualized SVC: Visualized Cardiac [place]: Visualized Diaphragm: Visualized 3 Vessel View: Visualized [...] who have questions, please contact the health critical care paramedic that requested your imaging first. Rehana Omer, Staff Physician Electronically Signed Final Report 10/14/2024 11:12 [address] [facility] ORDERABLE S * Scan Doc: Lab (09/26/2024 12:00 AM EST) Only the most recent of3 resultswithin the time period is included. Narrative 09/26/2024 12:00 AM EST Ordered by an unspecified provider. Scanning Provider MEDIA MGR SCAN EXT O RDR/RSLT * Scan Doc: Ultrasound (09/06/2024 12:00 AM EDT) Anatomical Region Laterality Modality Other Narrative 09/06/2024 12:00 AM EDT Ordered by an unspecified provider. Scanning Provider MEDIA MGR SCAN EXT O RDR/RSLT * Scan Doc: Genetic Study (08/24/2024 12:00 AM EDT) Narrative 08/24/2024 12:00 AM EDT Ordered by an unspecified provider. Scanning Provider MEDIA MGR SCAN EXT O RDR/RSLT from Last 3 Months
--- OUTSIDE RECORDS SUMMARY | 2024-11-22 16:19 | XMS_ITS | Encounter Summary ---
Author Organization [facility] Address [address] [place] [address] Care Team Providers Care Radiologist Name Role Phone Unknown, Provider MD Primary Care Provider Tom Edwards MD Unavailable Unavailable Encounter Details Date Type Department Care Team (Late st Contact Info) Description 02/26/2021 Lab Requisition [facility] Pathology & Laboratory Medicine - [address] [address] Outr Resulting Lab, Provider Social History Tobacco [...] Unknown 02/26/2021 10:22 EDT 02/26/2021 16:21 EDT us Provider Outr Resulting Lab MICROBIOLOGY - GENER AL ORDERABLES Final Result Performing Organization Address [facility] Co de Phone Number [facility] [address] [place] [address] * COVID-19 TESTING (02/26/2021 10:22 EDT) COVID-19 rt-PCR Result Negative Negative 02/27/2021 12:45 EDT [facility] Comment: This test has [...] performed using the matheus SARS-CoV-2 assay ([employer] on the Matheus 6800 System Performing Lab Matheus [address] [facility] Lab 02/27/2021 12:45 EDT [facility] Swab 02/26/2021 10:2 2 EDT 02/26/2021 16:21 EDT us Provider Outr Resulting Lab MICROBIOLOGY - GENER AL ORDERABLES Final Result Performing Organization Address [facility]/ZIP Co de Phone Number [facility] [address] [place] [address] documented in this encounter Visit Diagnoses Not on filedocumented in this encounter Care Teams Radiologist Relationship Specialty Start Date End Date Unknown, Provider, PCP - General 11/09/19 Tom Teague MD 11/09/19 documented as of this encounter
--- OUTSIDE RECORDS SUMMARY | 2024-11-22 16:19 | XMS_ITS | Encounter Summary ---
Author Organization [facility] Address [address] [place] [address] Care Team Providers Care Manager Risk Management Name Role Phone Unknown, Provider Primary Care Provider Tom Edwards MD Unavailable Unavailable Encounter Details Date Type Department Care Team (Late st Contact Info) Description 12/03/2022 Lab Requisition [facility] Pathology & Laboratory Medicine - [address] [address] Miley Vega PA [address] [place] [phone] Encounter for other general examination Social [...] Risk types, PCR Negative Negative 12/12/2022 15:29 [facility] Comment:No E6 or E7 mRNA is detected from HPV types 16,18,31,33,35,39,45,51,52,56,58,59,66, and 68 by customs broker mediated amplification. Papanicolaou smear specimen (specimen) CERVIX UTERI STRUCTURE / Unknown 12/03/2022 13:51 EST 12/11/2022 10:53 EST Miley PIRES MICROBIOLOGY - GENERAL O RDERABLES Final Result [facility] [address] [place] [address] * PAP TEST (12/03/2022 13:51 EST) Specimens A. Cervix and/or Endocervix , ThinPrep Imaging System with Manual Evaluation 12/12/2022 15:29 [facility] Specimen Adequacy Satisfactory for Evaluation - transformation zone component present 12/12/2022 15:29 [facility] General Categorization Negative for intraepithelial lesion or malignancy 12/12/2022 15:29 [facility] Descriptive Diagnosis Fungal organisms present morphologically consistent with Alysha species. Shift in lina present suggestive of bacterial vaginosis. 12/12/2022 15:29 [facility] Attestation By the signature below, the attending physician certifies that they have personally conducted a gross and/or microscopic examination of the described specimens and rendered or confirmed the above diagnosis. 12/12/2022 15:29 [facility] at 1529 Clinical History See below 12/12/19 15:29 [facility] HPV The result for the Human Papillomavirus (HPV) Detection-High Risk Types is Negative. No E6 or E7 mRNA is detected from HPV types 16,18,31,33,35,39 ,45,51,52,56,58,5 9,66, and 68 by customs broker mediated amplification.Pauline ting was performed on specimen [id number] and was resulted on 12/12/2022 1529 EST by TASHI, LAB INSTRUMENT RESULTS IN 12/12/2022 15:29 EST [facility] Performing Lab [facility] 12/12/2022 15:29 EST [facility] Scanned Images 12/12/2022 15:29 EST [facility] Papanicolaou smear specimen (specimen) CERVIX UTERI STRUCTURE / Unknown 12/03/2022 13:51 EST 12/04/2022 13:16 EST Miley PIRES PATHOLOGY ORDERABLES Fin al Result [facility] [address] [place] [address] documented in this encounter Visit Diagnoses Diagnosis Encounter for other general examination documented in this encounter Care Teams Manager Risk Management Relationship Specialty Start Date End Date Unknown, Provider, PCP - General 11/09/19 Tom Teague MD 11/09/19 documented as of this encounter
--- OUTSIDE RECORDS SUMMARY | 2024-11-22 16:19 | XMS_ITS | Encounter Summary ---
Author Organization [facility] Address [address] [place] [address] Care Team Providers Care Entomology Professor Name Role Phone Unknown, Provider Primary Care Provider Tom Edwards MD Unavailable Unavailable Encounter Details Date Type Department Care Team (Late st Contact Info) Description 08/24/2024 Lab Requisition [facility] Pathology & Laboratory Medicine - [address] [address] Outr Resulting Lab, Provider Social History Tobacco [...] 4th Generation Negative Negative 08/24/2024 23:31 EDT [facility] Comment:If acute HIV-1 infec tion is suspected in a high risk patient, submit plasma specimen for HIV-1 RNA quantitation test. Blood VENOUS BLOOD / Unknown 08/24/2024 15:02 EDT 08/24/2024 21:52 EDT Narrative [facility] - 08/24/2024 23:31 EDT Fourth Generation assay performed on the Siemens Motistaaur XPT. us Provider Outr Resulting Lab IMMUNOLOGY AND SEROL OGY ORDERABLES Final Result [facility] [address] [place] [address] documented in this encounter Visit Diagnoses Not on filedocumented in this encounter Care Teams Entomology Professor Relationship Specialty Start Date End Date Unknown, Provider, PCP - General 11/09/19 Tom Teague MD 11/09/19 documented as of this encounter
--- OUTSIDE RECORDS SUMMARY | 2024-11-22 16:19 | XMS_ITS | Encounter Summary ---
Author Organization [facility] Address [address] [place] [address] Care Team Providers Care Compressor Engineer Name Role Phone Unknown, Provider Primary Care Provider Tom Edwards MD Unavailable Unavailable Encounter Details Date Type Department Care Team (Late st Contact Info) Description 04/27/2024 Lab Requisition [facility] Pathology & Laboratory Medicine - [address] [address] Outr Resulting Lab, Provider Social History Tobacco [...] gonorrhoeae Result Negative Negative 04/29/2024 13:21 EDT [facility] Chlamydia trachomatis Result Negative Negative 04/29/2024 13:21 EDT [facility] Swab VAGINAL STRUCTURE / Unknown 04/27/2024 15:15 EDT 04/28/2024 21:59 EDT us Provider Outr Resulting Lab MICROBIOLOGY - GENER AL ORDERABLES Final Result [facility] [address] [place] [address] documented in this encounter Visit Diagnoses Not on filedocumented in this encounter Care Teams Compressor Engineer Relationship Specialty Start Date End Date Unknown, Provider, PCP - General 11/09/19 Tom Teague MD 11/09/19 documented as of this encounter
--- OUTSIDE RECORDS SUMMARY | 2024-11-22 16:19 | XMS_ITS | Encounter Summary ---
Author Organization [facility] Address [address] [place] [address] Care Team Providers Care Director Financial Analysis Name Role Phone Unknown, Provider MD Primary Care Provider Tom Edwards MD Unavailable Unavailable Encounter Details Date Type Department Care Team (Late st Contact Info) Description 08/24/2024 Lab Requisition [facility] Pathology & Laboratory Medicine - [address] [address] Outr Resulting Lab, Provider Social History Tobacco [...] Ab Positive See Note 08/25/2024 10:29 EDT [facility] Comment:Presence of detectab le Varicella Zoster virus IgG antibodies. Blood VENOUS BLOOD / Unknown 08/24/2024 15:02 EDT 08/24/2024 21:52 EDT us Provider Outr Resulting Lab IMMUNOLOGY AND SEROL OGY ORDERABLES Final Result Performing Organization Address [facility] Co de Phone Number [facility] [address] [place] [address] * RUBELLA IGG ANTIBODY (08/24/2024 15:02 EDT) Rubella IgG Ab Negative See Note 08/25/2024 10:31 EDT [facility] Comment:Sample is considered negative for [...] S ORDERABLES Final Result Performing Organization Address [facility] Co de Phone Number [facility] [address] [place], [place] [phone] documented in this encounter Visit Diagnoses Not on filedocumented in this encounter Care Teams Director Financial Analysis Relationship Specialty Start Date End Date Unknown, Provider, PCP - General 11/09/19 Tom Teague MD 11/09/19 documented as of this encounter
--- OUTSIDE RECORDS SUMMARY | 2024-11-22 16:19 | XMS_ITS | Encounter Summary ---
Author Organization [facility] Address [address] [place] [address] Care Team Providers Care Pbx Operator Name Role Phone Unknown, Provider MD Primary Care Provider Tom Edwards MD Unavailable Unavailable Encounter Details Date Type Department Care Team (Late st Contact Info) Description 08/24/2024 Lab Requisition [facility] Pathology & Laboratory Medicine - [address] [address] Outr Resulting Lab, Provider Social History Tobacco [...] Surface Ag Negative Negative 08/24/2024 22:58 EDT [facility] Blood VENOUS BLOOD / Unknown 08/24/2024 15:02 EDT 08/24/2024 21:52 EDT us Provider Outr Resulting Lab CHEMISTRY & BLOOD GA S ORDERABLES Final Result Performing Organization Address [facility] Co de Phone Number [facility] [address] [place] [address] * HEPATITIS C AB W REFLEX TO HCV RNA BY PCR (08/24/2024 15:02 EDT) Hep C Antibody Negative Negative 08/24/2024 23:38 EDT [facility] Blood VENOUS BLOOD / Unknown 08/24/2024 15:02 EDT 08/24/2024 21:52 EDT us Provider Outr Resulting Lab CHEMISTRY & BLOOD GA S ORDERABLES Final Result Performing Organization Address [facility] de Phone Number [facility] [address] [place], [place] [phone] documented in this encounter Visit Diagnoses Not on filedocumented in this encounter Care Teams Pbx Operator Relationship Specialty Start Date End Date Unknown, Provider, PCP - General 11/09/19 Tom Teague MD 11/09/19 documented as of this encounter
--- OUTSIDE RECORDS SUMMARY | 2024-11-22 16:19 | XMS_ITS | Encounter Summary ---
Author Organization [facility] Address [address] [place] [address] Care Team Providers Care Tank Tester Name Role Phone Unknown, Provider Primary Care Provider Tom Edwards MD Unavailable Unavailable Encounter Details Date Type Department Care Team (Late st Contact Info) Description 12/30/2019 Lab Requisition [facility] Pathology & Laboratory Medicine - [facility] [address] [place] [address] Unknown, Provider, Social History Tobacco Use Types Packs/Day Years Used Date Smoking Tobacco: Never Assessed Comments Unknown Sex and Gender Information Value [...] 4th Generation Negative Negative 01/02/2020 11:19 EST [facility] Comment: If acute HIV-1 infection is suspected in a high risk ??patient, submit plasma specimen for HIV-1 RNA quantitation test. Fourth Generation assay performed on the Siemens Centaur. Blood VENOUS BLOOD / Unknown 12/30/2019 8:30 EST 12/30/2019 21:06 EST us Provider Unknown IMMUNOLOGY AND SEROLOGY ASHLEY MARTINEZ Final Result Performing Organization Address City/[facility]/ZIP Co de Phone Number [facility] [address] [place] [address] * HEPATITIS C AB W REFLEX TO HCV RNA BY PCR (12/30/2019 8:30 EST) Hep C Antibody Negative Negative 01/02/2020 11:02 EST [facility] Blood VENOUS BLOOD / Unknown 12/30/2019 8:30 EST 12/30/2019 21:06 EST us Provider Unknown CHEMISTRY & BLOOD GAS ORDERA BLES Final Result Performing Organization Address [facility]/ZIP Co de Phone Number [facility] [address] [place] [address] * HEPATITIS B SURFACE ANTIGEN (12/30/2019 8:30 EST) Hep B Surface Ag Negative Negative 01/02/2020 10:46 EST [facility] Blood VENOUS BLOOD / Unknown 12/30/2019 8:30 EST 12/30/2019 21:06 EST us Provider Unknown CHEMISTRY & BLOOD GAS ORDERA BLES Final Result Performing Organization Address [facility] Co de Phone Number [facility] [address] [place] [address] documented in this encounter Visit Diagnoses Not on filedocumented in this encounter Care Teams Tank Tester Relationship Specialty Start Date End Date Unknown, Provider, PCP - General 11/09/19 Tom Teague MD 11/09/19 documented as of this encounter
--- OUTSIDE RECORDS SUMMARY | 2024-11-22 16:19 | XMS_ITS | Encounter Summary ---
Author Organization [facility] Address [address] [place] [address] Care Team Providers Care Supervisor Capacitor Processing Name Role Phone Unknown, Provider MD Primary Care Provider Tom Edwards MD Unavailable Unavailable Encounter Details Date Type Department Care Team (Late st Contact Info) Description 12/22/2023 Lab Requisition [facility] Pathology & Laboratory Medicine - [address] [address] Outr Resulting Lab, Provider Social History Tobacco [...] Neg and Giardia Antigen Neg 10:[address] [facility] Feces SPECIMEN FROM RECTUM / Unknown 12/22/2023 12:40 EST 12/22/2023 21:30 EST us Provider Outr Resulting Lab MICROBIOLOGY - GENER AL ORDERABLES Final Result Performing Organization Address [facility] Co de Phone Number [facility] [address] [place] [address] * OVA/PARASITE EXAM (12/22/2023 12:40 EST) Parasite No ova and parasites seen. 12/24/2023 13:[address] [facility] Feces SPECIMEN FROM RECTUM / Unknown 12/22/2023 12:40 EST 12/22/2023 21:30 EST Narrative [facility] - 12/24/2023 13:13 EST (If Cryptosporidium, Cyclospora, or Microsporidium are suspected, specific tests must be requested.) Single negative specimen does not rule out the possibility of a parasitic infection. us Provider Outr Resulting Lab MICROBIOLOGY - GENER AL ORDERABLES Final Result Performing Organization Address [facility] Co de Phone Number [facility] [address] [place] [address] documented in this encounter Visit Diagnoses Not on filedocumented in this encounter Care Teams Supervisor Capacitor Processing Relationship Specialty Start Date End Date Unknown, Provider, PCP - General 11/09/19 Tom Teague MD 11/09/19 documented as of this encounter
--- OUTSIDE RECORDS SUMMARY | 2024-11-22 16:19 | XMS_ITS | Encounter Summary ---
Author Organization [facility] Address [address] [place] [address] Care Team Providers Care Marble Polisher Hand Name Role Phone Unknown, Provider Primary Care Provider Tom Edwards MD Unavailable Unavailable Encounter Details Date Type Department Care Team (Late st Contact Info) Description 02/18/2023 Lab Requisition [facility] Pathology & Laboratory Medicine - [address] [address] Outr Resulting Lab, Provider Social History Tobacco [...] Alysha Species Positive(A) Negative 02/20/20 13:07 EDT [facility] Alysha glabrata Negative Negative 02/19/2023 13:07 EDT [facility] Trichomonas Vaginalis Negative Negative 02/19/2023 13:07 EDT [facility] BV (Bacterial vaginosis) Positive(A) Negative 02/19/2023 13:07 EDT [facility] Swab ENTIRE VAGINA / Unknown 02/18/2023 17:35 EDT 02/18/2023 22:51 EDT us Provider Outr Resulting Lab MICROBIOLOGY - GENER AL ORDERABLES Final Result [facility] [address] [place] [address] documented in this encounter Visit Diagnoses Not on filedocumented in this encounter Care Teams Marble Polisher Hand Relationship Specialty Start Date End Date Unknown, Provider, PCP - General 11/09/19 Tom Teague MD 11/09/19 documented as of this encounter
--- OUTSIDE RECORDS SUMMARY | 2024-11-22 16:19 | XMS_ITS | Encounter Summary ---
Author Organization [facility] Address [address] [place] [address] Care Team Providers Care Operating Table Assembler Name Role Phone Unknown, Provider Primary Care Provider Tom Edwards MD Unavailable Unavailable Encounter Details Date Type Department Care Team (Late st Contact Info) Description 08/31/2020 Lab Requisition [facility] Pathology & Laboratory Medicine - [facility] [address] [place] [address] Jaskaran Lugo MD [address] [place] [phone] Encounter for other general examination Social History [...] epithelial change. - Microglandular hyperplasia. 09/04/2020 13:47 [facility] Attestation By the signature below, the attending physician certifies that they have 1) personally conducted a gross and/or microscopic examination of the described specimen(s), and/or personally interpreted the results of laboratory testing of the described specimen(s), and 2) personally rendered or confirmed the above diagnosis. 09/04/2020 13:47 [facility] at 1347 Clinical History Pap ASCUS, (+)HR HPV 09/04/2020 13:47 [facility] Gross Description A. Received [...] B1. LEXIS YU(ASCP) 09/03/2020 8:50 09/04/2020 13:47 T [facility] Performing Lab [facility] 09/04/2020 13:47 [facility] Scanned Images 09/04/2020 13:47 T [facility] Tissue ENTIRE WALL OF CERVIX / Unknown 08/31/2020 14:00 EDT 08/31/2020 23:10 EDT Tissue specimen (specimen) CERVIX UTERI STRUCTURE / Unknown 08/31/2020 14:00 EDT 08/31/2020 23:10 EDT us Jaskaran Lugo MD PATHOLOGY ORDERABLES F inal Result [facility] [address] [place] [address] documented in this encounter Visit Diagnoses Diagnosis Encounter for other general examination documented in this encounter Care Teams Operating Table Assembler Relationship Specialty Start Date End Date Unknown, Provider, PCP - General 11/09/19 Tom Teague MD 11/09/19 documented as of this encounter
--- OUTSIDE RECORDS SUMMARY | 2024-11-22 16:19 | XMS_ITS | Encounter Summary ---
Author Organization [facility] Address [address] [place] [address] Care Team Providers Care Journeyman Mechanic Name Role Phone Unknown, Provider MD Primary Care Provider Tom Edwards MD Unavailable Unavailable Encounter Details Date Type Department Care Team (Late st Contact Info) Description 12/29/2019 Lab Requisition [facility] Pathology & Laboratory Medicine - [facility] [address] [place] [address] Unknown, Provider, Social History Tobacco Use Types [...] gonorrhoeae Result Negative Negative 12/30/2019 13:26 EST [facility] Chlamydia trachomatis Result Negative Negative 12/30/2019 13:26 EST [facility] Swab ENTIRE VAGINA / Unknown 12/29/2019 17:40 EST 12/29/2019 21:43 EST us Provider Unknown MICROBIOLOGY - GENERAL ORDER GUILLAUME Final Result [facility] [address] [place] [address] documented in this encounter Visit Diagnoses Not on filedocumented in this encounter Care Teams Journeyman Mechanic Relationship Specialty Start Date End Date Unknown, Provider, PCP - General 11/09/19 Tom Teague MD 11/09/19 documented as of this encounter
--- OUTSIDE RECORDS SUMMARY | 2024-11-22 16:19 | XMS_ITS | Encounter Summary ---
Author Organization [facility] Address [address] [place] [address] Care Team Providers Care Dynamic Balancer Set Up Worker Name Role Phone Unknown, Provider Primary Care Provider Tom Edwards MD Unavailable Unavailable Encounter Details Date Type Department Care Team (Late st Contact Info) Description 09/10/2021 Lab Requisition [facility] Pathology & Laboratory Medicine - [address] [address] Miley Vega PA [address] [place] [phone] Encounter for other general examination Social [...] Imaging System with Manual Evaluation 09/16/2021 13:02 [facility] Specimen Adequacy Satisfactory for Evaluation - transformation zone component present 09/16/2021 13:02 [facility] General Categorization Negative for intraepithelial lesion or malignancy 09/16/2021 13:02 [facility] Attestation . 09/16/2021 13:02 [facility] at 1302 Clinical History Clinical History, Signs, Symptoms, Chief Complaint, Pertaining to This Order: See below Last Menstral Period: 08/29/21 WRESTLING COACH Treatment History?: Yes 09/16/2021 13:02 [facility] Performing Lab [facility] 09/16/2021 13:02 [facility] Scanned Images 09/16/2021 13:02 [facility] Papanicolaou smear specimen (specimen) CERVIX UTERI STRUCTURE / Unknown 09/10/2021 16:01 EDT 09/11/2021 15:24 EDT us Miley PIRES PATHOLOGY ORDERABLES Fin al Result [facility] [address] [place] [address] documented in this encounter Visit Diagnoses Diagnosis Encounter for other general examination documented in this encounter Care Teams Dynamic Balancer Set Up Worker Relationship Specialty Start Date End Date Unknown, Provider, PCP - General 11/09/19 Tom Teague MD 11/09/19 documented as of this encounter
--- OUTSIDE RECORDS SUMMARY | 2024-11-22 16:19 | XMS_ITS | Encounter Summary ---
Author Organization [facility] Address [address] [place] [address] Care Team Providers Care Transplanter Orchid Name Role Phone Unknown, Provider MD Primary Care Provider Tom Edwards MD Unavailable Unavailable Encounter Details Date Type Department Care Team (Late st Contact Info) Description 12/22/2023 Lab Requisition [facility] Pathology & Laboratory Medicine - [address] [address] Outr Resulting Lab, Provider Social History Tobacco [...] EST) Salmonella PCR Positive(A) Negative 10:59 EST [facility] Shigella/Enteroin vasive E. coli Negative Negative 12/23/2023 10:59 EST [facility] HN LAB CAMPYLOBACTER PCR Negative Negative 12/23/2023 10:59 EST [facility] Shiga Toxin PCR Negative Negative 10:59 EST [facility] Feces SPECIMEN FROM RECTUM / Unknown 12/22/2023 12:40 EST 12/22/2023 21:30 EST us Provider Outr Resulting Lab MICROBIOLOGY - GENER AL ORDERABLES Final Result Performing Organization Address City/State/[facility] Co de Phone Number [facility] [address] [place] [address] documented in this encounter Visit Diagnoses Not on filedocumented in this encounter Care Teams Transplanter Orchid Relationship Specialty Start Date End Date Unknown, Provider, PCP - General 11/09/19 Tom Teague MD 11/09/19 documented as of this encounter
--- OUTSIDE RECORDS SUMMARY | 2024-11-22 16:19 | XMS_ITS | Encounter Summary ---
Author Organization [facility] Address [address] [place] [address] Care Team Providers Care Candy Dipper Name Role Phone Unknown, Provider Primary Care Provider Tom Edwards MD Unavailable Unavailable Encounter Details Date Type Department Care Team (Late st Contact Info) Description 08/08/2020 Lab Requisition [facility] Pathology & Laboratory Medicine - [facility] [address] [place] [address] Miley Vega PA [address] [place] [phone] Encounter for other general examination Social [...] types, PCR Positive( A) Negative 08/22/2020 15:33 [facility] Comment:E6 OR E7 mRNA from o ne or more types of HPV types 16,18,31,33,35,39,45,51,52,56,58,59,66, and 68 is detected by asphalt patcher mediated amplification. High and intermediate risk HPV types are associated with most squamous intraepithelial lesions and cervical cancers. Papanicolaou smear specimen (specimen) CERVIX UTERI STRUCTURE / Unknown 08/08/2020 22:27 EDT 08/20/2020 15:00 EDT us Miley PIRES MICROBIOLOGY - GENERAL O RDERABLES Final Result [facility] [address] [place] [address] * PAP TEST (08/08/2020 22:27 EDT) Specimens A. Cervix and/or Endocervix , ThinPrep Imaging System with Manual Evaluation 08/22/2020 15:33 [facility] Specimen Adequacy Satisfactory for Evaluation - transformation zone component present 08/22/2020 15:33 [facility] General Categorization Epithelial Cell Abnormality 08/22/2020 15:33 [facility] Descriptive Diagnosis Squamous Cell Abnormality - Atypical squamous cells, undetermined significance (ASC-US). 08/22/2020 15:33 [facility] Educational Comments [facility] recommends following ASCCP's 2012 Updated Consensus Guidelines for the Management of Abnormal Cervical Cancer Screening Tests and Cancer Precursors (JLGTD, 2013; 17(5):S1-S27). Consensus guidelines are available online at www.asccp.org. 08/22/2020 15:33 [facility] Attestation By the signature below, the attending physician certifies that they have personally conducted a gross and/or microscopic examination of the described specimens and rendered or confirmed the above diagnosis. 08/22/2020 15:33 [facility] at 1533 Clinical History Clinical History, Signs, Symptoms, Chief Complaint, Pertaining to This Order: See below Last Menstral Period: 08/01/20 08/22/2020 15:33 EDT [facility] HPV The result for the Human Papillomavirus (HPV) Detection-High Risk Types is Positive . E6 OR E7 mRNA from one or more types of HPV types 16,18,31,33,35,39 ,45,51,52,56,58,5 9,66, and 68 is detected by asphalt patcher mediated amplification. High and intermediate risk HPV types are associated with most squamous intraepithelial lesions and cervical cancers. Testing was performed on specimen [id number] and was resulted on 08/22/2020 1523 EDT by TASHI, LAB INSTRUMENT RESULTS IN 08/22/2020 15:33 EDT [facility] Performing Lab [facility] [[email or web address]] LAB 08/22/2020 15:33 EDT [facility] Scanned Images 08/22/2020 15:33 EDT [facility] Papanicolaou smear specimen (specimen) CERVIX UTERI STRUCTURE / Unknown 08/08/2020 22:27 EDT 08/10/2020 10:30 EDT us Miley PIRES PATHOLOGY ORDERABLES Fin al Result [facility] [address] [place] [address] documented in this encounter Visit Diagnoses Diagnosis Encounter for other general examination documented in this encounter Care Teams Candy Dipper Relationship Specialty Start Date End Date Unknown, Provider, PCP - General 11/09/19 Tom Teague MD 11/09/19 documented as of this encounter
--- OUTSIDE RECORDS SUMMARY | 2024-11-22 16:19 | XMS_ITS | Encounter Summary ---
Author Organization [facility] Address [address] [place] [address] Care Team Providers Care Desk Operator Name Role Phone Unknown, Provider Primary Care Provider Tom Edwards MD Unavailable Unavailable Encounter Details Date Type Department Care Team (Late st Contact Info) Description 09/10/2021 Lab Requisition [facility] Pathology & Laboratory Medicine - [address] [address] Outr Resulting Lab, Provider Social History Tobacco [...] gonorrhoeae Result Negative Negative 09/13/2021 12:04 EDT [facility] Chlamydia trachomatis Result Negative Negative 09/13/2021 12:04 EDT [facility] Papanicolaou smear specimen (specimen) CERVIX UTERI STRUCTURE / Unknown 09/10/2021 16:01 EDT 09/11/2021 8:31 EDT us Provider Outr Resulting Lab MICROBIOLOGY - GENER AL ORDERABLES Final Result [facility] [address] [place] [address] documented in this encounter Visit Diagnoses Not on filedocumented in this encounter Care Teams Desk Operator Relationship Specialty Start Date End Date Unknown, Provider, PCP - General 11/09/19 Tom Teague MD 11/09/19 documented as of this encounter
--- OUTSIDE RECORDS SUMMARY | 2024-11-22 16:19 | XMS_ITS | Encounter Summary ---
Author Organization [facility] Address [address] [place] [address] Care Team Providers Care Surgical Pathologist Name Role Phone Unknown, Provider MD Primary Care Provider Tom Edwards MD Unavailable Unavailable Encounter Details Date Type Department Care Team (Late st Contact Info) Description 01/22/2024 Lab Requisition [facility] Pathology & Laboratory Medicine - [address] [address] Outr Resulting Lab, Provider Social History Tobacco [...] encounter Results * [facility] (01/22/2024 9:30 EDT) Pathologist [facility]SH 6.3 See Note mIU/mL 01/22/2024 18:37 EDT [facility] Blood VENOUS BLOOD / Unknown 01/22/2024 9:30 EDT 01/22/2024 17:05 EDT Narrative [facility] - 01/22/2024 18:37 EDT NOTE: Female [facility] Reference Ranges (Menstruating): PHYSIOLOGICAL STATUS ? REFERENCE RANGE ? Follicular (-12 to -4 days): ?? 2.5 - 10.2 mIU/mL Midcycle (-3 to +2 days): ?3.4 - 33.4 mIU/mL Luteal (+4 to +12 days): ? 1.5 - 9.1 mIU/mL Postmenopausal: ?23.0 - 116.3 mIU/mL Reference Ranges for pediatric non-menstruating female patients have not been established. us Provider Outr Resulting Lab CHEMISTRY & BLOOD GA S ORDERABLES Final Result [facility] [address] [place], [place] [id number] * PROLACTIN (01/22/2024 9:30 EDT) [facility] Prolactin 7.9 See Note ng/mL 01/22/2024 18:37 EDT [facility] Comment: NOTE: Female Reference Ranges: PHYSIOLOGICAL STATUS ?REFERENCE RANGE ? Postmenopausal ?1.8 - 20.3 ng/mL ?9.7 - 208.5 ng/mL Non- ?2.8 - 29.2 ng/mL Blood VENOUS BLOOD / Unknown 01/22/2024 9:30 EDT 01/22/2024 17:05 EDT Provider Outr Resulting Lab CHEMISTRY & BLOOD GA S ORDERABLES Final Result Performing Organization Address [facility] de Phone Number [facility] [address] [place] [address] * ESTRADIOL, ADULTS (01/22/2024 9:30 EDT) [facility] Signature Estradiol 69 See Note pg/mL 01/22/2024 18:21 EDT [facility] Comment: NOTE: FEMALE REFERENCE RANGES: [...] S ORDERABLES Final Result Performing Organization Address [facility] de Phone Number [facility] [address] [place] [address] * DHEA SULFATE (01/22/2024 9:30 EDT) DHEA Sulfate 257 96 - 512 ug/dL 01/25/2024 10:15 EDT [facility] Blood VENOUS BLOOD / Unknown 01/22/2024 9:30 EDT 01/22/2024 17:05 EDT us Provider Outr Resulting Lab CHEMISTRY & BLOOD GA S ORDERABLES Final Result [facility] [address] [place] [id number] documented in this encounter Visit Diagnoses Not on filedocumented in this encounter Care Teams Surgical Pathologist Relationship Specialty Start Date End Date Unknown, Provider, PCP - General 11/09/19 Tom Teague MD 11/09/19 documented as of this encounter
--- OUTSIDE RECORDS SUMMARY | 2024-11-22 16:19 | XMS_ITS | Encounter Summary ---
Author Organization [facility] Address [address] [place] [address] Care Team Providers Care [employer] Name Role Phone Unknown, Provider MD Primary Care Provider Tom Edwards MD Unavailable Unavailable Encounter Details Date Type Department Care Team (Late st Contact Info) Description 10/15/2021 Lab Requisition [facility] Pathology & Laboratory Medicine - [address] [address] Outr Resulting Lab, Provider Social History Tobacco [...] 10/15/2021 13:3 6 EST 10/15/2021 20:54 EST us Provider Outr Resulting Lab MICROBIOLOGY - GENER AL ORDERABLES Final Result [facility] [address] [place] [address] * COVID-19 TESTING (10/15/2021 13:36 EST) COVID-19 rt-PCR Result Negative Negative 10/16/2021 15:10 EST [facility] Comment: This test has not [...] developed and its performance characteristics determined by [facility]. It has not been cleared or approved [...] testing. This test is based on the [facility] COVID-19 Emergency Use Authorization (EUA) assay, with minor modification as defined by the FDA Performed on the [employer] 7 Flex RT-PCR System. Performing Lab [facility] 10/16/2021 15:10 EST [facility] Swab 10/15/2021 13:3 6 EST 10/15/2021 20:54 EST us Provider Outr Resulting Lab MICROBIOLOGY - GENER AL ORDERABLES Final Result [facility] [address] [place] [address] documented in this encounter Visit Diagnoses Not on filedocumented in this encounter Care Teams [employer] Relationship Specialty Start Date End Date Unknown, Provider, PCP - General 11/09/19 Tom Teague MD 11/09/19 documented as of this encounter
--- OUTSIDE RECORDS SUMMARY | 2024-11-22 16:19 | XMS_ITS | Encounter Summary ---
Author Organization [facility] Address [address] [place] [address] Care Team Providers Care Bus And Trolley Dispatcher Name Role Phone Unknown, Provider Primary Care Provider Tom Edwards MD Unavailable Unavailable Encounter Details Date Type Department Care Team (Late st Contact Info) Description 06/29/2024 Lab Requisition [facility] Pathology & Laboratory Medicine - [address] [address] Outr Resulting Lab, Provider Social History Tobacco [...] Alysha glabrata Negative Negative 07/02/2024 21:59 EDT [facility] Trichomonas Vaginalis Negative Negative 07/02/2024 21:59 EDT [facility] BV (Bacterial vaginosis) Positive(A) Negative 07/02/2024 21:59 EDT [facility] Neisseria gonorrhoeae Result Negative Negative 07/02/2024 21:59 EDT [facility] Chlamydia trachomatis Result Negative Negative 07/02/2024 21:59 EDT [facility] Alysha Species Positive(A) Negative 07/02/20 21:59 EDT [facility] Swab VAGINAL STRUCTURE / Unknown 06/29/2024 16:21 EDT 06/29/2024 21:32 EDT us Provider Outr Resulting Lab MICROBIOLOGY - GENER AL ORDERABLES Final Result Performing Organization Address City/State/[facility] Co de Phone Number [facility] [address] [place] [address] documented in this encounter Visit Diagnoses Not on filedocumented in this encounter Care Teams Bus And Trolley Dispatcher Relationship Specialty Start Date End Date Unknown, Provider, PCP - General 11/09/19 Tom Teague MD 11/09/19 documented as of this encounter
--- OUTSIDE RECORDS SUMMARY | 2024-11-22 16:19 | XMS_ITS | Encounter Summary ---
Author Organization [facility] Address [address] [place] [address] Care Team Providers Care Nerve Specialist Name Role Phone Unknown, Provider Primary Care Provider Tom Edwards MD Unavailable Unavailable Encounter Details Date Type Department Care Team (Late st Contact Info) Description 06/11/2020 Lab Requisition [facility] Pathology & Laboratory Medicine - [facility] [address] [place] [address] Tom Busby MD [address] [place] [phone] Disorder of the skin and subcutaneous [...] Lobular capillary hemangioma (pyogenic granuloma). 06/13/2020 11:23 [facility] Attestation By the signature below, the attending physician certifies that they have 1) personally conducted a gross and/or microscopic examination of the described specimen(s), and/or personally interpreted the results of laboratory testing of the described specimen(s), and 2) personally rendered or confirmed the above diagnosis. 06/13/2020 11:23 [facility] at 1123 Clinical History Disorder of the skin and subcutaneous tissue, unspecified, left scalp skin lesion 06/13/2020 11:23 [facility] Gross Description A. Received [...] sections. Angela Muse 06/12/2020 8:37 06/13/2020 11:23 [facility] Performing Lab [facility] 06/13/2020 11:23 T [facility] Scanned Images 06/13/2020 11:23 [facility] Tissue TISSUE SPECIMEN FROM SKIN / Unknown 06/08/2020 16:00 EDT 06/11/2020 23:05 EDT us Tom Busby MD PATHOLOGY ORDERABLES F inal Result [facility] [address] [place] [address] documented in this encounter Visit Diagnoses Diagnosis Disorder of the skin and subcutaneous tissue, unspecified documented in this encounter Care Teams Nerve Specialist Relationship Specialty Start Date End Date Unknown, Provider, PCP - General 11/09/19 Tom Teague MD 11/09/19 documented as of this encounter
--- OUTSIDE RECORDS SUMMARY | 2024-11-22 16:19 | XMS_ITS | Continuity of Care Document ---
Author Name [facility] Organization [facility] Care Team Providers Care Power Generating Plant Operator Name Role Phone [facility] Unavailable Unavailable Problems [...] Site Reaction Lot Number CVX Code Drug Automatic Lathe Tender Status Comments Source influenza,tri valent, recombinant, inj-pf 2015 zBentley ht Arm [id number] Seqirus complet ed influenza ,trivalen t, recombina nt, inj-pf 09/30/16 Given Ambulat ory Pharmac y tetanus, diphtheria, acellular pertu is 2015 Yareli t Arm [id number] [address] [facility] [address] ne complet ed tetanus, diphtheri a, acellular pertussis 09/30/16 Given Ambulat ory Pharmac y tetanus toxoid, reduced diphtheria toxoid, and acellular pertu is vaccine, adsorbed 0 2015 NIEVES EMERSON [id number] [facility] complet ed tetanus toxoid, reduced diphtheri a toxoid, and acellular pertussis vaccine, adsorbed DoD Seasonal, trivalent, recombinant, injectable influenza vaccine, preservative free 0 2015 NIEVES EMERSON [id number] Seqirus (SEQ) complet ed Seasonal, trivalent [...] ADM Date DC Date Status Disposition Source [facility] [place]cdaniel [place] OUTPATIENT [id number] [facility] DODIE BERNSTEIN 02/13 Released w/o Limitations [facility] [place] [facility] [place] TELE CONSULT [id number] Notes Entered by: Puneet MORALEZ 30 Apr 2015 1021 ------- ------- ------- ------- -- [facility] Bernstein/ [facility] DODIE BERNSTEIN 04/[address] [facility] [address] [facility] [place]) OUTPATIENT [id number] [facility] Jose/i rregula r juan joséu al [facility] DODIE BERNSTEIN 05/08 Released w/o Limitations [facility] [place] [facility] [place] TELE CONSULT [id number] Notes Entered by: Maira NICHOLS 17 May 2015 1302 ------- ------- ------- ------- -- [facility] [facility] [place] [facility] [place] Water Resource Specialist at [facility]) OUTPATIENT [id number] The time between periods has increas ed (oligom enorrhe a) TORI MASON T 05/25 Released w/o Limitations [facility] [place] Water Resource Specialist at [facility]) [facility] [place] Water Resource Specialist at [facility]) OUTPATIENT [id number] f/u wholesale buyer TORI MASON T 06/26 Released w/o Limitations [facility] [place] Water Resource Specialist at [facility]) [facility] [place] Water Resource Specialist at [facility]) OUTPATIENT [id number] f/u wholesale buyer TORI MASON T 07/26 Released w/o Limitations [facility] [place] Water Resource Specialist at [facility]) [facility] [place] Water Resource Specialist at [facility]) TELE CONSULT [id number] Notes Entered by: DELMI NATARAJAN 01 Aug 2015 0839 ------- ------- ------- ------- -- current medicat ion ineffec tive TORI MASON T 08/[address] [facility] [facility] [place] Water Resource Specialist [facility]) [facility] [place] Water Resource Specialist at [facility]) OUTPATIENT [id number] follow up wholesale buyer MICHAEL GOMEZ O 08/30 Released w/o Limitations [facility] [place] Water Resource Specialist at [facility]) [facility] [place] Water Resource Specialist at [facility]) TELE CONSULT [id number] Notes Entered by: FRANK MOORE 10 Sep 2015 0749 ------- ------- ------- ------- -- request ing medicat MICHAEL Clay O 09/10 [place] Water Resource Specialist at [facility]) [place] Water Resource Specialist at [facility]) OUTPATIENT [id number] F/U THIRD OFFICER would like to discuss options MICHAEL GOMEZ O 12/06 Released w/o Limitations [place] Water Resource Specialist at [facility]) [place] TELE CONSULT [id number] Notes Entered by: Bisi TOVAR 31 Jan 2016 0813 ------- ------- ------- ------- -- [facility] LAVON NICHOLS S 01/30 [place] TELE CONSULT [id number] Notes Entered by: SUPA SUTTON 31 Jan 2016 1052 ------- ------- ------- ------- -- patient needs an updated referra l for ongoing care with the ob clinic at [facility]. LAVON NICHOLS S 01/30 [place] Water Resource Specialist at [facility]) OUTPATIENT [id number] f/u wholesale buyer - inferti MICHAEL Christianson O 02/07 Released w/o Limitations [facility] [place] Water Resource Specialist at [facility]) [facility] [place] Water Resource Specialist at [facility]) OUTPATIENT [id number] MICHAEL RAZA O 02/13 Released w/o Limitations [place] Water Resource Specialist at [facility]) [place] Water Resource Specialist at [facility]) OUTPATIENT [id number] ultraso und (book per Richy de luna) MICHAEL GOMEZ 02/27 Released w/o Limitations [place] Water Resource Specialist at [facility]) [place] TELE CONSULT [id number] Notes Entered by: MAURA BERRIOS 24 Mar 2016 0750 ------- ------- ------- ------- -- PCM:MARNIE BARRIENTOS Pt [facility] to confirm pregnan cy. LAVON NICHOLS 03/24 [place] [place]01A Red[place] [place]01A Red[place] TELE CONSULT [id number] Notes Entered by: Miya BERNSTEIN 25 Mar 2016 1800 ------- ------- ------- ------- -- LAB CARLA MORALEZ 03/25 Immediate Ref[place] F01A Red[place] Water Resource Specialist at [facility]) TELE CONSULT [id number] Notes Entered by: Ervin BROWNLEE 27 Mar 2016 0837 ------- ------- ------- ------- -- appt to [facility] HO BROWNLEE 03/27 [place]erred [place] Water Resource Specialist at [facility]) [place] Water Resource Specialist at [facility]) TELE CONSULT [id number] Notes Entered by: Valdez KULKARNI 28 Mar 2016 1840 ------- ------- ------- ------- -- vag bleedin g had positiv e hcg on clomid and progest erone. KECIA KULKARNI 03/28 [place] Water Resource Specialist at [facility]) [place] Water Resource Specialist at [facility]) OUTPATIENT [id number] follow up ER-sab (stefan Santana) USMAN Lyon 04/01 Released w[place]o Limitations [place] Water Resource Specialist at [facility]) [place] Water Resource Specialist at [facility]) OUTPATIENT [id number] NIKHIL cheung - discuss next step MICHAEL GOMEZ 04/30 Released w/o Limitations [place] Water Resource Specialist at [facility]) [place] TELE CONSULT [id number] Notes Entered by: PARAM CEJA RA 14 May 2016 0922 ------- ------- ------- ------- -- Pcm Bernstein- pregnan cy test request CARLA MORALEZ 05/14 Other Not Elsewhere Classified [place] TELE CONSULT [id number] Notes Entered by: Nito GRAMAJO 14 May 2016 1205 ------- ------- ------- ------- -- lab LAVON NICHOLS 05/14 [place] TELE CONSULT [id number] Notes Entered by: Nito GRAMAJO 14 May 2016 1231 ------- ------- ------- ------- -- lab LAVON NICHOLS 05/14 [place] Water Resource Specialist at [facility]) TELE CONSULT [id number] Notes Entered by: KEMErvin MISHRA 16 May 2016 1316 ------- ------- ------- ------- -- appt to [facility] HO BROWNLEE 05/16 Referred for Appointment [facility] Sandra [place]cdaniel [place]([facility] Water Resource Specialist at [facility]) [facility] [place] [facility] at [facility]) OUTPATIENT [id number] [facility] u/s TIM DESAI 05/22 Released w/o Limitations [facility] [place] Water Resource Specialist at [facility]) [facility] Sandra Mcdaniel [place]([facility] Water Resource Specialist at [facility]) OUTPATIENT [id number] ob reg HO BROWNLEE 06/03 Released with Work/Duty Limitations [facility] ROB Esparza([facility] Water Resource Specialist at [facility]) [facility] Sandra [place]cdaniel [place]([facility] Water Resource Specialist at [facility]) OUTPATIENT [id number] New OB TIM DESAI 06/10 Released w/o Limitations [facility] MEDVALDOC ROB Esparza([facility] Water Resource Specialist at [facility]) [facility] Sandra [place]cdaniel [place]([facility] Water Resource Specialist at [facility]) TELE CONSULT [id number] Notes Entered by: FRANK DESAI 20 Jun 2016 1244 ------- ------- ------- ------- -- results TIM DESAI 06/[address] [facility] MAUREENC ROB Esparza([facility] Water Resource Specialist at [facility]) [facility] MEDDA Sandra [place]cdaniel [place]([facility] Water Resource Specialist at [facility]) OUTPATIENT [id number] 14 weeks TIM BARRERA 07/09 Released w/o Limitations [facility] ROB [place] Water Resource Specialist at [facility]) [facility] [place] Water Resource Specialist at [facility]) TELE CONSULT [id number] Notes Entered by: Bisi GAN 01 Aug 2016 1320 ------- ------- ------- ------- -- pap results ARMANDO MARY ELLEN M 08/01 [place]erred for Appoint[place] Water Resource Specialist at [facility]) [facility] [place] TELE CONSULT [id number] Notes Entered by: Wen NAGY 14 Aug 2016 0754 ------- ------- ------- ------- -- Transfe r In GARLAND RODRIGUEZ 08/14 [facility] [place]) [facility] [place] OUT[place] [id number] intake/ transfe r kristine FEB advised of paper work GERALDO MASON 08/21 Released w/o Limitations [facility] [place]) [facility] [place] OUT[place] [id number] NOB transfe r in KRISTINE Dec 26 NIEVES LAO 08/21 Released w/o Limitations [facility] [place] [facility] [place] OUT[place] [id number] GRP:EDC :DEC NIEVES LAO 09/02 Released w/o Limitations [facility] [place] [facility] [place] OUTPATIENT [id number] GRP:EDC :B NIEVES LAO 09/24 Released w/o Limitations [facility] [place] [facility] [place] OUT[place]IENT [id number] GRP:EDC :B MARY MEDINA 10/24 Released w/o Limitations [facility] [place] [facility] [place] [id number] Notes Entered by: CHARLA GOYAL 17 Nov 2016 1302 ------- ------- ------- ------- -- IUP @ 33+3 weeks for decreas ed movemen HOWARD Everett 11/17 Released w/o Limitations [facility] [place] [facility] [place] OUT[place] [id number] GRP:EDC :DEC NIEVES LAO 11/23 Released w/o Limitations [facility] [place] [facility] [place] OUTPATIENT [id number] GRP:EDC :DEC NIEVES LAO 12/01 Released w/o Limitations [facility] [place] [facility] [place] OUTPAT[place] [id number] Notes Entered by: Puneet MUSE 10 Dec 2016 1207 ------- ------- ------- ------- -- Breech present ation. [facility] ical consult ADITYA Schofield 12/10 Released w/o Limitations [facility] [place] [facility] [place] OUT[place] [id number] ADITYA Maya 12/12 Released w/o Limitations [facility] [place] [facility] [place] OUT[place] [id number] GRP:EDC :DEC NIEVES LAO 12/16 Released w/o Limitations [facility] [place] [facility] [place] F01[place] [facility] [facility] 2[place] OUTPATIENT [id number] obgyn dep ed TIM SILVA 12/16 Released w/o Limitations [facility] [place] [facility] 2[place] [facility] [place] OUTPATIENT [id number] 38 wk mesfin clark kimberly cancell ed, need KASIA LEBLANC 12/24 Released w/o Limitations [facility] [place] [place] [facility] [place] OUTPATIENT [id number] 39WK YOHANNES MARIANO 12/30 Released w/o Limitations [facility] [place] [place] [facility] [place] DIRECT TO [facility] FROM OTHER THAN ER OR APU [id number] EMA MARTIN 01/01 DISCHARGED HOME [facility] [place] [place] OUT[place]IENT [id number] RED ITCHY RASH ON BELLY 13 DAYS POST MARY MEDINA 01/14 Released w/o Limitations [place] Procedures Combined list of: 1) Procedures from [facility] facilities [facility], not all [place] non-surgical procedures are included; 2) All procedures from the Department of Defense facilities. Procedure Procedure Type Code Date Perfomer Comments Sourc e No data available for this section [facility] REPAIR PERINEUM SKIN, EXTERNAL APPROACH 01/03 [facility] DRAINAGE OF AMNIOTIC FLUID, THERAPEUTIC FROM PRODUCTS OF CONCEPTION, VIA NATURAL OR ARTIFICIAL OPENING 01/03 [facility] DELIVERY OF PRODUCTS OF CONCEPTION, EXTERNAL APPROACH [...] AND/OR FORCEPS); 01/01 [facility]D NON-STRESS TEST 12/31 [facility] SUBSEQ CARE VISIT () [EXCLS:PATIENTS WHO ARE SEEN FOR A CONDITION UNREL TO / CARE (EG,AN UP RESPIR INFECT;PATIENTS SEEN FOR CONSULTATION ONLY,NOT FOR CONT CARE)] 12/30 [facility] ULTRASOUND, UTERUS, REAL TIME WITH IMAGE DOCUMENTATION, LIMITED (EG, HEART BEAT, PLACENTAL LOCATION, POSITION AND/OR QUALITATIVE AMNIOTIC FLUID VOLUME), 1 OR MORE FETUSES 12/24 [facility] HEALTH AND BEHAVIOR INTERVENTION, EACH 15 MINUTES, [id number]; GROUP (2 OR MORE PATIENTS) 12/16 DoD [...] FOR CONSULTATION ONLY,NOT FOR CONT CARE)] 12/09 [facility] SUBSEQ CARE VISIT () [EXCLS:PATIENTS WHO ARE SEEN FOR A CONDITION UNREL TO / CARE (EG,AN UP RESPIR INFECT;PATIENTS SEEN FOR CONSULTATION ONLY,NOT FOR CONT CARE)] 11/25 [facility] NON-STRESS TEST 11/17 [facility] EDUCATIONAL SUPPLIES, SUCH BOOKS, TAPES, AND PAMPHLETS, FOR THE PATIENT'S EDUCATION AT COST TO PHYSICIAN OR OTHER QUALIFIED HEALTH CRATE MAKER 10/28 [facility] INFLUENZA VIRUS VACCINE, TRIVALENT (IIV3), SPLIT VIRUS, PRESERVATIVE FREE, 0.5 ML DOSAGE, FOR INTRAMUSCULAR USE 09/30 [facility] SUBSEQ CARE VISIT () [EXCLS:PATIENTS WHO ARE SEEN FOR A CONDITION UNREL TO / CARE (EG,AN UP RESPIR INFECT;PATIENTS SEEN FOR CONSULTATION ONLY,NOT FOR CONT CARE)] 09/02 [facility] INITIAL CARE VISIT (REPORT AT 1ST ENCOUN W HEALTH CRATE MAKER PROVIDING OBSTETRIC CARE. REPORT ALSO DATE OF VISIT &,IN A SEPARATE FIELD,THE DATE OF THE LAST MENSTRUAL PERIOD) 08/21 [facility] PATIENT EDUCATION, NOT OTHERWISE CLASSIFIED, NON-PHYSICIAN PROVIDER, INDIVIDUAL, PER SESSION 08/21 [facility] SUBSEQ CARE VISIT () [EXCLS:PATIENTS WHO ARE SEEN FOR A CONDITION UNREL TO / CARE (EG,AN UP RESPIR INFECT;PATIENTS SEEN FOR CONSULTATION ONLY,NOT FOR CONT CARE)] 07/09 [facility] SCREENING PAPANICOLAOU SMEAR; OBTAINING, PREPARING AND CONVEYANCE OF CERVICAL OR VAGINAL SMEAR TO LABORATORY 06/10 [facility] EDUCATIONAL SUPPLIES, SUCH BOOKS, TAPES, AND PAMPHLETS, FOR THE PATIENT'S EDUCATION AT COST TO PHYSICIAN OR OTHER QUALIFIED HEALTH CRATE MAKER 06/03 [facility] ULTRASOUND, UTERUS, REAL TIME WITH IMAGE DOCUMENTATION,TRANSV [...] MED DIS 03/24 DoD ULTRASOUND, TRANSVAGINAL 02/27 [facility] CATHETERIZATION AND INTRODUCTION OF SALINE OR CONTRAST [...] W/IN THE PREV 7 DAYS,USE THE INTERNET/SIMILAR [employer] COMM NETWORK 01/30 [facility] ONLINE ASSESS &MANAG SERV PROVIDE,A QUAL NONPHYS HCP TO AN ESTABLISHED PAT/GUARDIAN,NOT ORIGINAT FRM RELAT ASSESS &MANAG SERV PROVIDE W/IN THE PREV 7 DAYS,USE THE INTERNET/SIMILAR ELECT COMM NETWORK 04/30 [facility] OB Services Antepartum Care Only Subsequent Single Visit OB Services Antepartum Care Only Subsequent Single Visit 0502F 12/30 YOHANNES CHOI [facility] Ultrasound Obstetric Limited Evaluation Ultrasound Obstetric Limited Evaluation 92216 12/25 KASIA LEBLANCLE [facility] OB Services Antepartum Care Only Subsequent Single Visit OB Services Antepartum Care Only Subsequent Single Visit 050F 12/25 KASIA LEBLANCLE [facility] OB Services Antepartum Care Only Subsequent Single Visit OB Services Antepartum Care Only Subsequent Single Visit 0502F 12/16 NIEVES LAO [facility] Health And Behav Intervention, Each Additional 15 Min Grp (2 Or More) Health And Behav Intervention, Each Additional 15 Min Grp (2 Or More) 60905 12/16 TIM SILVA [facility] Ultrasound Obstetric Limited Evaluation Ultrasound Obstetric Limited Evaluation 15581 12/12 [place] Patient informed of limitations of bedside ultrasound. Patient verbalize understanding. positive cadiac activity cephalic anterior placenta munoz amniotic fluid index: 14.53 [facility] Non-Stre Test (___ 0,2) Non-Stress Test (___ 0,2) 29228 12/12 [place] reactive NST, baseline = 135, moderate variablity, multiple accelerations to 150, no decelerations, positive movement, no contractions noted. Patient denies any complaints at this time. next OB appointment 16 Dec 2016 Patient discharged with kick counts instructions and signs and symptoms of labor. Patient verbalize understanding. [facility] Ultrasound Obstetric Limited Evaluation Ultrasound Obstetric Limited Evaluation 69239 12/10 ADITYA MUSE [facility] OB Services Antepartum Care Only Subsequent Single Visit OB Services Antepartum Care Only Subsequent Single Visit 0502F 12/09 NIEVES LAO OB Services Antepartum Care Only Subsequent Single Visit OB Services Antepartum Care Only Subsequent Single Visit 0502F 11/25 NIEVES LAO [facility] Non-Stre Test (___ 0,2) Non-Stress Test (___ 0,2) 99641 11/17 CHARLA GOYAL Reactive NST, baseline 130 , accels present, no decels noted. +FM no uc's noted Next OB appt: Nov Pt sent home with labor precautions and kick counts. Pt was reassured of movement. Pt instructed to return immediately if she has anymore decreased movement. [facility] Physician Supervised Services Provision Of Educational Supplies Physician Supervised Services Provision Of Educational Supplies 51418 10/28 MARY MEDINA [facility] OB Services Antepartum Care Only Subsequent Single Visit OB Services Antepartum Care Only Subsequent Single Visit 0502F 10/28 MARY MEDINA [facility] OB Services Antepartum Care Only Subsequent Single Visit OB Services Antepartum Care Only Subsequent Single Visit 0502F 09/30 SHILONIEVES HOOD [facility] Immunization Administration By Injection, Each Additional Vaccine Immunization Administration By Injection, Each Additional Vaccine 98738 09/30 [facility] Immunization Administration By Injection, One Vaccine Immunization Administration By Injection, One Vaccine 25766 09/30 [facility] Tdap Vaccine Tdap Vaccine 22888 09/30 SHILONIEVES Delgado [facility] OB Services Antepartum Care Only Subsequent Single Visit OB Services Antepartum Care Only Subsequent Single Visit 0502F 09/02 SHILONIEVES HOOD TAD [facility] OB Services Antepartum Care Only First Visit, With Report OB Services Antepartum Care Only First Visit, With Report 0500F 08/21 SHILONIEVES HOOD [facility] Patient education, not otherwise cla ified, non-physician provider, individual, per se ion 08/21 GERALDO MASON [facility] OB Services Antepartum Care Only Subsequent Single Visit OB Services Antepartum Care Only Subsequent Single Visit 0502F 07/09 ITM DESAI [facility] Ultrasound Trans[place] [address] 06/11 TIM DESAI [facility] OB Services Antepartum Care Only First Visit, With Report OB Services Antepartum Care Only First Visit, With Report 0500F 06/11 TIM DESAI [facility] Screening papanicolaou smear; obtaining, preparing and conveyance of cervical or vaginal smear to laboratory 06/11 TIM DESAI [facility] Physician Supervised Services Provision Of Educational Supplies Physician Supervised Services Provision Of Educational Supplies 46418 06/03 HO BROWNLEE [facility] Patient Counseling Medical Management Individual Patient Patient Counseling Medical Management Individual Patient [id number] 06/03 HO BROWNLEE [facility] Ultrasound Trans[place] [address] 05/22 TIM DESAI [facility] Non-Physician Phone Call To Patient/Provider Brief (5-10min) Non-Physician Phone Call To Patient/Provider Brief (5-10min) 72971 05/14 RAHEL NICHOLSCA S [facility] Non-Physician Phone Call To Patient/Provider Brief (5-10min) Non-Physician Phone Call To Patient/Provider Brief (5-10min) [id number] 03/26 CARLA MORALEZ [facility] Non-Physician Phone Call To Patient/Provider Brief (5-10min) Non-Physician Phone Call To Patient/Provider Brief (5-10min) [id number] 03/24 RAHEL NICHOLSCA [facility] Ultrasound Trans-Vaginal Ultrasound Trans-Vaginal [id number] 02/28 MICHAEL GOMEZ [facility] Hysterosalpingograph y With Catheter Contrast Injection Hysterosalpingograph y With Catheter Contrast Injection [id number] 02/14 MICHAEL GOMEZ [facility] Non-Physician Phone Call To Patient/Provider Brief (5-10min) Non-Physician Phone Call To Patient/Provider Brief (5-10min) [id number] 01/30 SIMONE LAVON S [facility] Internet Med Svc Qual Nonphys Healthcare Prof Up To 7 Days Estab Patient Internet Med Svc Qual Nonphys Healthcare Prof Up To 7 Days Estab Patient [id number] 01/30 SIMONE LAVON S [facility] Internet Med Svc Qual Nonphys Healthcare Prof Up To 7 Days Estab Patient Internet Med Svc Qual Nonphys Healthcare Prof Up To 7 Days Estab Patient [id number] 04/30 CARLA MORALEZ [facility] Social History Combined list of available smoking, [...] Plan No data available for this section 11/22/2024 Ambulatory Pharmacy Functional Status Combined list of recent functional and cognitive assessments recorded at [employer] of [employer] and [employer] (VA).VA Functional Midway Measurement (FIM) Scale: 1 = Total Assistance (Subject = 0% +), 2 = Maximal Assistance (Subject = 25% +), 3 = Moderate Assistance (Subject = 50% +), 4 = Minimal Assistance (Subject = 75% +), 5 = Supervision, 6 = Modified Midway (Device), 7 = Complete Midway (Timely, Safely). Assessment Date/Time Source Assessment Type Assessment Skill Assessment Score Assessment Details No data available for this section
[2024-11-22 16:34] VITALS: BP 117/65; PULSE 66; TEMP 36.8
--- NOTE | 2024-11-22 20:53 | W.OBNST ---
Date of service: 11/22/24 Time of Service: 20:53 NST Evaluation Reason for NST Reasons for Nonstress Test: OTHER, SEE COMMENT Reason for NST Other: abdominal pain Gestational Age Gestational Age in Weeks and Days: 25 Weeks and 4Days Test and Monitor Explained Test/Monitor Explained: Test Explained, Monitor Explained and Patient Verbalized Understanding Vital Signs Blood Pressure: 117/65 Pulse: 66 Temperature: 98.2 F NST Information Date on Monitor: 11/22/24 Time on Monitor: 16:33 Date off Monitor: 11/22/24 Time off Monitor: 17:00 Total Time on Monitor: 27 NST Interventions: PO Hydration Contraction Frequency: uterine irritability NST Evaluation Patient States Movement: Present FHR Baseline: 135 Variability: Moderate 6-25 bpm Accelerations: 15x15 Decelerations: None NST Results: Reactive Note Ultrasound Done: N/A. NST Note Note: Radha called and expressed concerns due to jon-umbilical pain after shoveling at work today. She experienced a sharp pain above her umbilicus. Fetus active and normal heart tones heard. Some uterine irritability noted but soft to palpation. Large diastasis noted and pain due to diastasis discussed with Radha. rest x 24 hours recommended and avoiding strenusous activity. Call if no improvement with rest. Signs of labor reviewed. Follow up with appointment at [facility]. NST Reviewed and Verified by: Dolores Hay
[2024-11-22 20:56] VITALS: BP 117/65; PULSE 66; TEMP 36.8
== END 2024-11-22 17:19 ==
LOC: BCD 16:17 → OBS 16:21
PROVIDERS: Visit Provider Advanced Practice Midwife
DX: O99.891 Other specified diseases and conditions complicating pregnancy (principal); M62.08 Separation of muscle (nontraumatic), other site; Z3A.25 25 weeks gestation of pregnancy; R10.33 Periumbilical pain
CPT/HCPCS: 59025

== ENCOUNTER 2024-12-02 01:43 | Outpatient (CLI) | payer MEDICAID, SELFPAY ==
--- OUTSIDE RECORDS SUMMARY | 2024-12-02 01:45 | XMS_ITS | Clinical Summary ---
Author Organization [facility] Address [address] [place] [address] Care Team Providers Care Marking Clerk Name Role Phone Unknown, Provider Primary Care Provider Tom Edwards MD Unavailable Unavailable Social History Tobacco Use Types Packs/Day Years [...] RNA BY PCR Routine 08/24/2024 15:02 EDT from Last 3 Months or Most Recently Relevant to Health Maintenance Results * HEPATITIS C AB W REFLEX TO HCV RNA BY PCR (08/24/2024 15:02 EDT) Hep C Antibody Negative Negative 08/24/2024 23:38 EDT [facility] Blood VENOUS BLOOD / Unknown 08/24/2024 15:02 EDT 08/24/2024 21:52 EDT us Provider Outr Resulting Lab CHEMISTRY & BLOOD GA S ORDERABLES Final Result [facility] [address] [place], [place] [id number] from Last 3 Months or Most Recently Relevant to Health Maintenance [place] [phone] Care Teams Marking Clerk Relationship Specialty Start Date End Date Unknown, Provider, PCP - General 11/09/19 Tom Teague MD 11/09/19
--- OUTSIDE RECORDS SUMMARY | 2024-12-02 01:45 | XMS_ITS | Encounter Summary ---
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, antepartum, single or unspecified fetus Rehana Omer MD [facility] DR OBSTETRICS [place] [address] [facility] Pedi Pulm [address] [place] [phone] Referral ID Status Reason Start Date Expiration Date V isits Requested Visits Authorized [id number] Closed Consult Only 11/03/2024 11/03/2025 1 1 Encounter Details Date Type Department Care Team (Late st Contact Info) Description 11/23/2024 1:00 PM EST TH Visit (TeleHealth) Pediatric Pulmonology at [address] [phone] Robe Bae MD [address] [place] [address] [place] [address] Cystic fibrosis carrier Social History Tobacco Use [...] as of this encounter Progress Notes * Robe Bae MD - 11/23/2024 1:00 PM EST Pediatric Pulmonology Name: Radha Hankins Address: [address] [place] [id number] : 1995 Age: 29 y.o. Gender: female Encounter Date: 11/23/2024 Primary Provider: No primary care provider on file. There are no problems to display for this patient. Allergies Allergen Reactions Amoxicillin Hives Penicillins Hives Sulfa (Sulfonamide Antibiotics) No current outpatient medications on file. No current facility-administered medications for this visit. History CC: I saw Radha and her for consultation regarding their and possible cystic fibrosis. I was accompanied on this call by the CF center nurse coordinator, Alannah Haywood RN. 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 Amy is now 26 weeks . Thefather, Royce, has a nephew who has cystic fibrosis and lives in [place]. Radha and Royce had questions today regarding outlooks for cystic fibrosis, things to do during in case the child has cystic fibrosis and what to expect immediately after . Radha does have a 8-year-old daughter from a different partner who does not have cystic fibrosis. We discussed the fact that there is a 1 in 4 chance of the having cystic fibrosis. The parents are well aware of this possibility. We answered questions regarding care including ultrasounds to look for echogenic bowel. Radha said that her 20-week anatomic ultrasound was completely normal. We discussed what to expect immediately after if the child does have cystic fibrosis. This should be detected by screening in the first week of life given the fact that the parents are carrying the most common CF mutation. This mutation is associated with pancreatic insufficiency and we discussed the need to use pancreatic enzyme replacement therapy early on if the child does have CF. We also discussed possible issues in the first year of life including use of chest physiotherapy and hypertonic saline nebulization treatment and encouraged the use of RSV prophylaxis in the first year. We also discussed the possibility of meconium ileus at . The parents had multiple questions regarding CF care and we spent over 40 minutes with them discussing ramifications of CF mutations and outlook in this area of highly effective modulator therapy. They know that they can be in touch with us at any time. Radha knows that she can message us through [employer] if she has any questions and that she will be in touch with us regarding screening results once the baby is born. Due to the telehealth nature of this visit there was no physical examination possible. I did see both Amy and Royce throughout the call. CC: No primary care provider on file. No primary provider on file. documented in this encounter Plan of Treatment Upcoming Encounters Date Type Department Care Team (Late st Contact Info) Description 01/06/2025 10:00 AM EST Routine Obstetrics [place] [address] Rehana Omer MD [facility] DR OBSTETRICS AND [place] [address] 01/06/2025 10:30 AM EST Clinical Support Obstetrics [place] [address] Educator, Herminie None 03/20/2025 1:00 PM EDT Office Visit Medical Genetics at [address] [address] Nataly Vann, [facility] [address] PEDIATR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
--- OUTSIDE RECORDS SUMMARY | 2024-12-02 01:45 | XMS_ITS | Encounter Summary ---
Author Organization [facility] Address [address] [place] [address] Care Team Providers Care Support Merchandiser Name Role Phone Unknown, Provider Primary Care Provider Tom Edwards MD Unavailable Unavailable Encounter Details Date Type Department Care Team (Late st Contact Info) Description 06/29/2024 Lab Requisition [facility] Pathology & Laboratory Medicine - [address] [address] Outr Resulting Lab, Provider Social History Tobacco [...] AL ORDERABLES Final Result Performing Organization Address City/State/[facility] Co de Phone Number [facility] [address] [place] [address] documented in this encounter Visit Diagnoses Not on filedocumented in this encounter Care Teams Support Merchandiser Relationship Specialty Start Date End Date Unknown, Provider, PCP - General 11/09/19 Tom Teague MD 11/09/19 documented as of this encounter
--- OUTSIDE RECORDS SUMMARY | 2024-12-02 01:45 | XMS_ITS | Encounter Summary ---
Author Organization [facility] Address [address] [place] [address] Care Team Providers Care Business Performance Manager Name Role Phone Unknown, Provider MD Primary Care Provider Tom Edwards MD Unavailable Unavailable Encounter Details Date Type Department Care Team (Late st Contact Info) Description 12/22/2023 Lab Requisition [facility] Pathology & Laboratory Medicine - [address] [address] Outr Resulting Lab, Provider Social History Tobacco [...] Neg and Giardia Antigen Neg 10:45 EST [facility] Feces SPECIMEN FROM RECTUM / Unknown 12/22/2023 12:40 EST 12/22/2023 21:30 EST us Provider Outr Resulting Lab MICROBIOLOGY - GENER AL ORDERABLES Final Result Performing Organization Address [facility] Co de Phone Number [facility] [address] [place] [address] * OVA/PARASITE EXAM (12/22/2023 12:40 EST) Parasite No ova and parasites seen. 12/24/2023 13:13 EST [facility] Feces SPECIMEN FROM RECTUM / Unknown 12/22/2023 12:40 EST 12/22/2023 21:30 EST Narrative [facility] - 12/24/2023 13:13 EST (If Cryptosporidium, Cyclospora, or Microsporidium are suspected, specific tests must be requested.) Single negative specimen does not rule out the possibility of a parasitic infection. us Provider Outr Resulting Lab MICROBIOLOGY - GENER AL ORDERABLES Final Result Performing Organization Address [facility] Co de Phone Number [facility] [address] [place] [address] documented in this encounter Visit Diagnoses Not on filedocumented in this encounter Care Teams Business Performance Manager Relationship Specialty Start Date End Date Unknown, Provider, PCP - General 11/09/19 Tom Teague MD 11/09/19 documented as of this encounter
--- OUTSIDE RECORDS SUMMARY | 2024-12-02 01:45 | XMS_ITS | Encounter Summary ---
Author Organization [facility] Address [facility] [place] [address] Care Team Providers Care Spot Facer Name Role Phone Unavailable Primary Care Provider [...] AM EST Routine Obstetrics [place] [address] Rehana Omer MD [facility] [address] OBSTETRICS [place] [address] 01/06/2025 10:30 AM EST Clinical Support Obstetrics [place] [address] Educator, Alice None 03/20/2025 1:00 PM EDT Office Visit Medical Genetics at [address] [phone] Nataly Vann, [facility] DR [place] [address] documented as of this encounter Visit Diagnoses Not on filedocumented in this encounter
--- OUTSIDE RECORDS SUMMARY | 2024-12-02 01:45 | XMS_ITS | Encounter Summary ---
Author Organization [facility] Address [address] [place] [address] Care Team Providers Care Bulkhead Carpenter Name Role Phone Unknown, Provider MD Primary Care Provider Tom Edwards MD Unavailable Unavailable Encounter Details Date Type Department Care Team (Late st Contact Info) Description 01/22/2024 Lab Requisition [facility] Pathology & Laboratory Medicine - [address] [address] Outr Resulting Lab, Provider Social History Tobacco [...] Results * FSH (01/22/2024 9:30 EDT) Pathologist [facility] FSH 6.3 See Note mIU/mL 01/22/2024 18:37 EDT [facility] Blood VENOUS BLOOD / Unknown 01/22/2024 9:30 EDT 01/22/2024 17:05 EDT Narrative [facility] - 01/22/2024 18:37 EDT [...] & BLOOD GA S ORDERABLES Final Result [facility] [address] [place], [place] [id number] * PROLACTIN (01/22/2024 9:30 EDT) [facility] Prolactin 7.9 See Note ng/mL 01/22/2024 18:37 EDT [facility] Comment: NOTE: Female Reference Ranges: PHYSIOLOGICAL STATUS ?REFERENCE RANGE ? Postmenopausal ?1.8 - 20.3 ng/mL ?9.7 - 208.5 ng/mL Non- ?2.8 - 29.2 ng/mL Blood VENOUS BLOOD / Unknown 01/22/2024 9:30 EDT 01/22/2024 17:05 EDT Provider Outr Resulting Lab CHEMISTRY & BLOOD GA S ORDERABLES Final Result Performing Organization Address [facility] de Phone Number [facility] [address] [place] [address] * ESTRADIOL, ADULTS (01/22/2024 9:30 EDT) [facility] Signature Estradiol 69 See Note pg/mL 01/22/2024 18:21 EDT [facility] Comment: NOTE: FEMALE REFERENCE [...] ORDERABLES Final Result Performing Organization Address [facility] de Phone Number [facility] [address] [place] [address] * DHEA SULFATE (01/22/2024 9:30 EDT) DHEA Sulfate 257 96 - 512 ug/dL 01/25/2024 10:15 EDT [facility] Blood VENOUS BLOOD / Unknown 01/22/2024 9:30 EDT 01/22/2024 17:05 EDT us Provider Outr Resulting Lab CHEMISTRY & BLOOD GA S ORDERABLES Final Result [facility] [address] [place] [address] documented in this encounter Visit Diagnoses Not on filedocumented in this encounter Care Teams Bulkhead Carpenter Relationship Specialty Start Date End Date Unknown, Provider, PCP - General 11/09/19 Tom Teague MD 11/09/19 documented as of this encounter
--- OUTSIDE RECORDS SUMMARY | 2024-12-02 01:45 | XMS_ITS | Encounter Summary ---
Author Organization [facility] Address [address] [place] [address] Care Team Providers Care Turning Machine Operator Name Role Phone Unknown, Provider MD Primary Care Provider Tom Edwards MD Unavailable Unavailable Encounter Details Date Type Department Care Team (Late st Contact Info) Description 10/15/2021 Lab Requisition [facility] Pathology & Laboratory Medicine - [address] [address] Outr Resulting Lab, Provider Social History Tobacco [...] - GENER AL ORDERABLES Final Result [facility] [address] [place] [address] * COVID-19 TESTING (10/15/2021 13:36 EST) COVID-19 rt-PCR Result Negative Negative 10/16/2021 15:10 EST [facility] Comment: This test has [...] developed and its performance characteristics determined by [facility]. It has not been cleared or [...] based on the [facility] COVID-19 Emergency Use Authorization (EUA) assay, with minor modification as defined by the FDA Performed on the Zaldiva 7 Flex RT-PCR System. Performing Lab [facility] Lab 10/16/2021 15:10 EST [facility] Swab 10/15/2021 13:3 6 EST 10/15/2021 20:54 EST us Provider Outr Resulting Lab MICROBIOLOGY - GENER AL ORDERABLES Final Result [facility] [address] [place] [address] documented in this encounter Visit Diagnoses Not on filedocumented in this encounter Care Teams Turning Machine Operator Relationship Specialty Start Date End Date Unknown, Provider, PCP - General 11/09/19 Tom Teague MD 11/09/19 documented as of this encounter
--- OUTSIDE RECORDS SUMMARY | 2024-12-02 01:45 | XMS_ITS | Encounter Summary ---
Author Organization [facility] Address [address] [place] [address] Care Team Providers Care Computer Systems Hardware Analyst Name Role Phone Unknown, Provider Primary Care Provider Tom Edwards MD Unavailable Unavailable Encounter Details Date Type Department Care Team (Late st Contact Info) Description 09/10/2021 Lab Requisition [facility] Pathology & Laboratory Medicine - [address] [address] Outr Resulting Lab, Provider Social History Tobacco [...] gonorrhoeae Result Negative Negative 09/13/2021 12:04 EDT [facility] Chlamydia trachomatis Result Negative Negative 09/13/2021 12:04 EDT [facility] Papanicolaou smear specimen (specimen) CERVIX UTERI STRUCTURE / Unknown 09/10/2021 16:01 EDT 09/11/2021 8:31 EDT us Provider Outr Resulting Lab MICROBIOLOGY - GENER AL ORDERABLES Final Result [facility] [address] [place] [address] documented in this encounter Visit Diagnoses Not on filedocumented in this encounter Care Teams Computer Systems Hardware Analyst Relationship Specialty Start Date End Date Unknown, Provider, PCP - General 11/09/19 Tom Teague MD 11/09/19 documented as of this encounter
--- OUTSIDE RECORDS SUMMARY | 2024-12-02 01:45 | XMS_ITS | Encounter Summary ---
Author Organization [facility] Address [address] [place] [address] Care Team Providers Care Bench Boring Machine Operator Name Role Phone Unknown, Provider Primary Care Provider Tom Edwards MD Unavailable Unavailable Encounter Details Date Type Department Care Team (Late st Contact Info) Description 08/24/2024 Lab Requisition [facility] Pathology & Laboratory Medicine - [address] [address] Outr Resulting Lab, Provider Social History Tobacco [...] Negative Negative 08/24/2024 23:31 EDT [facility] Comment:If acute HIV-1 infec tion is suspected in a high risk patient, submit plasma specimen for HIV-1 RNA quantitation test. Blood VENOUS BLOOD / Unknown 08/24/2024 15:02 EDT 08/24/2024 21:52 EDT Narrative [facility] - 08/24/2024 23:31 EDT Fourth Generation assay performed on the Siemens The French Cellaraur XPT. us Provider Outr Resulting Lab IMMUNOLOGY AND SEROL OGY ORDERABLES Final Result [facility] [address] [place] [address] documented in this encounter Visit Diagnoses Not on filedocumented in this encounter Care Teams Bench Boring Machine Operator Relationship Specialty Start Date End Date Unknown, Provider, PCP - General 11/09/19 Tom Teague MD 11/09/19 documented as of this encounter
--- OUTSIDE RECORDS SUMMARY | 2024-12-02 01:45 | XMS_ITS | Encounter Summary ---
Author Organization [facility] Address [address] [place] [address] Care Team Providers Care Utility Bag Assembler Name Role Phone Unknown, Provider MD Primary Care Provider Tom Edwards MD Unavailable Unavailable Encounter Details Date Type Department Care Team (Late st Contact Info) Description 12/22/2023 Lab Requisition [facility] Pathology & Laboratory Medicine - [address] [address] Outr Resulting Lab, Provider Social History Tobacco [...] EST) Salmonella PCR Positive(A) Negative 10:59 EST [facility] Shigella/Enteroin vasive E. coli Negative Negative 12/23/2023 10:59 EST [facility] HN LAB CAMPYLOBACTER PCR Negative Negative 12/23/2023 10:59 EST [facility] Shiga Toxin PCR Negative Negative 10:59 EST [facility] Feces SPECIMEN FROM RECTUM / Unknown 12/22/2023 12:40 EST 12/22/2023 21:30 EST us Provider Outr Resulting Lab MICROBIOLOGY - GENER AL ORDERABLES Final Result Performing Organization Address City/State/[facility] Co de Phone Number [facility] [address] [place] [address] documented in this encounter Visit Diagnoses Not on filedocumented in this encounter Care Teams Utility Bag Assembler Relationship Specialty Start Date End Date Unknown, Provider, PCP - General 11/09/19 Tom Teague MD 11/09/19 documented as of this encounter
--- OUTSIDE RECORDS SUMMARY | 2024-12-02 01:45 | XMS_ITS | Encounter Summary ---
[place] [address] Care Team Providers Care Corrective And Manual Arts Therapist Name Role Phone Unavailable Primary Care Provider Unavailabl e Reason for Referral * Consultation (Urgent) - Closed Specialty Diagnoses / Procedures Referred By Contac t Referred To Contact Obstetrics and Gynecology Diagnoses Encounter for supervision of normal , antepartum, unspecified Cystic fibrosis carrier Detail Morph 10/07-10/20 GC Next Available CYSTIC FIBROSIS CARRIER FOB ALSO CARRIER Dolores Hay CNM [address] [place] [address] [address] [place] [address] [facility] Credit Risk Analyst [address] [address] Referral ID Status Reason Start Date Expiration Date V isits Requested Visits Authorized [id number] Closed Consult, Test & Treat PCP Updated and/or Approved 09/07/2024 09/07/2025 6 6 Encounter Details Date Type Department Care Team (Late st Contact Info) Description 09/07/2024 Transcribe Orders eDH Incoming Referrals [phone] Dolores Hay CNM [address] [place] [address] [address] [place], [place] [id number] Encounter for supervision of normal , antepartum, [...] AM EST Routine Obstetrics [place] [address] Rehana Omer MD [facility] DR OBSTET[place]ICS [place] [address] 01/06/2025 10:30 AM EST Clinical Support Obstetrics [place] [address] Educator, [place] None 03/20/2025 1:00 PM EDT Office Visit Medical Genetics at [address] [address] Nataly Vann, [facility] [address] Scheduled Referrals Name Type Priority Associated Diagnoses [...]
--- OUTSIDE RECORDS SUMMARY | 2024-12-02 01:45 | XMS_ITS | Encounter Summary ---
[place] [address] Care Team Providers Care Supervisor Beet End Name Role Phone Unavailable Primary Care Provider Unavailabl e Reason for Referral * Diagnostic Test (Routine) - Closed Specialty Diagnoses / Procedures Referred By Contac t Referred To Contact Radiology Diagnoses Cystic fibrosis carrier Planned Procedures US OB Detailed Morphology Stevenson Hay CNM [address] [place] [address] [facility] [place] [address] Referral ID Status Reason Start Date Expiration Date V isits Requested Visits Authorized [id number] Closed Specialty Service Requested 09/22/2024 03/22/2026 1 1 Reason for Visit * Diagnostic Test (Routine) - Closed Specialty Diagnoses / Procedures Referred By Contac t Referred To Contact Radiology Diagnoses Cystic fibrosis carrier Planned Procedures US OB Detailed Morphology Stevenson Hay CNM [facility] [place] [address] [facility] [place] [address] Referral ID Status Reason Start Date Expiration Date V isits Requested Visits Authorized [id number] Closed Specialty Service Requested 09/22/2024 03/22/2026 1 1 Encounter Details Date Type Department Care Team (Latest Contact Info) Description 10/14/2024 9:29 AM EST - 10/14/2024 11:59 PM EST Hospital [place] [phone] Stevenson Hay CNM [address] [place] [address] [address] [place] [address] Cystic fibrosis carrier; Planned Discharge Disposition: Home [...] AM EST Routine Obstetrics [place] [phone] Rehana Omer MD [facility] [address] [place]ST[place] [address] 01/06/2025 10:30 AM EST Clinical Support Obstetrics [place] [phone] Educator, [place] None 03/20/2025 1:00 PM EDT Office Visit Medical Genetics at [address] [address] Nataly Vann, [facility] [address] [address] documented as of this encounter Procedures Procedure [...] who have questions, please contact the health health care facilities inspector that requested your imaging first. ?Rehana Omer, Staff Physician Electronically Signed Final Report ?? 10/14/2024 11:12 am Narrative 10/14/2024 11:13 AM EST OBSTETRICS REPORT ?(Signed Final 10/14/2024 11:12 am) PATIENT INFO: ID #: ? [id number] ?: ??[birth year] (29 yrs)(F) Name: ? RADHA VERN ? Visit Date: 10/14/2024 10:06 am PERFORMED BY: Attending: ?Kan JONES, Rehana Castañeda Performed By: ? Irma KELSEY, ??Elisa Referred By: ?STEVENSON HAY Location: ? [place] SERVICE(S) PROVIDED: [facility] - Detailed Morphology - [id number] ? [id number] INDICATIONS: 20 weeks gestation of ?Z3A.20 CF [...] - 19.8 HC/AC: ? 1.14 ?1. - 39 FL/BPD: ?69.3 ??% FL/AC: ? 21.1 ??% [...] Arch: ? Visualized SVC: ? Visualized Cardiac Aspen: ?Visualized Diaphragm: ? Visualized 3 Vessel View: [...] 10/14/2024 11:12 am) PATIENT INFO: ID #: [id number] : [birth year] (29 yrs)(F) Name: RADHA HANKINS Visit Date: 10/14/2024 10:06 am PERFORMED BY: Attending: Rehana Omer MD Performed By: Elisa Solis RDMS Referred By: STEVENSON HAY Location: [place] SERVICE(S) PROVIDED: [facility] - Detailed Morphology - [id number] INDICATIONS: 20 weeks gestation of Z3A.20 CF [...] Visualized Ductal Arch: Visualized SVC: Visualized Cardiac Aspen: Visualized Diaphragm: Visualized 3 Vessel View: Visualized [...] who have questions, please contact the health health care facilities inspector that requested your imaging first. Rehana Omer, Staff Physician Electronically Signed Final Report 10/14/2024 11:12 am Stevenson Hay CNM IMG US OB ORDERABLE S documented in this encounter Visit Diagnoses Diagnosis Cystic fibrosis carrier Cystic fibrosis gene carrier Planned state, incidental documented in this encounter
--- OUTSIDE RECORDS SUMMARY | 2024-12-02 01:45 | XMS_ITS | Encounter Summary ---
Author Organization [facility] [place] [address] Care Team Providers Care Senior Patrol Agent Name Role Phone Unavailable Primary Care Provider Unavailabl e Encounter Details Date Type Department Care Team (Late st Contact Info) Description 10/04/2024 Telephone Obstetrics [place] [address] [address] [facility] [facility] [address] [facility] & [place] [address] Social History Tobacco Use Types Packs/Day Years Used Date Smoking Tobacco: Never Assessed Estimated Date of Delivery Comme nts Yes 03/03/2025 Sex and Gender Information Value Date Recorded Sex Assigned at Not on file Gender Identity Not on file Sexual Orientation Not on file documented as of this encounter Miscellaneous Notes * Telephone Encounter - Edmundo Guardado, 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 Both Radha's and Royce's reports areavailable for review in her chart. There is a 25% chance that Radha's fetus is homozygous for the p.N524hlh variant, which would bepredicted to result in classic cystic fibrosis. Radha declines diagnosis. She has a detailed morphology ultrasound scheduled with us on 10/14/2024. documented in this encounter Plan of Treatment Upcoming Encounters Date Type Department Care Team (Late st Contact Info) Description 01/06/2025 10:00 AM EST Routine Obstetrics [place] [address] Rehana Omer MD [facility] DR OBSTETRICS [place] [address] 01/06/2025 10:30 AM EST Clinical Support Obstetrics [place] [address] Educator, [place] None 03/20/2025 1:00 PM EDT Office Visit Medical Genetics at [address] [phone] Nataly Vann, [facility] [place] [address] documented as of this encounter Visit Diagnoses Not on filedocumented in this encounter
--- OUTSIDE RECORDS SUMMARY | 2024-12-02 01:45 | XMS_ITS | Encounter Summary ---
Author Organization [facility] Address [address] [place] [address] Care Team Providers Care Pharmaceutical Representative Name Role Phone Unknown, Provider Primary Care Provider Tom Edwards MD Unavailable Unavailable Encounter Details Date Type Department Care Team (Late st Contact Info) Description 12/03/2022 Lab Requisition [facility] Pathology & Laboratory Medicine - [address] [address] Miley Vega PA [address] [place] [phone] Encounter for other general examination Social [...] Risk types, PCR Negative Negative 12/12/2022 15:29 [facility] Comment:No E6 or E7 mRNA is detected from HPV types 16,18,31,33,35,39,45,51,52,56,58,59,66, and 68 by cable installer repairer helper mediated amplification. Papanicolaou smear specimen (specimen) CERVIX UTERI STRUCTURE / Unknown 12/03/2022 13:51 EST 12/11/2022 10:53 EST Miley PIRES MICROBIOLOGY - GENERAL O RDERABLES Final Result [facility] [address] [place] [address] * PAP TEST (12/03/2022 13:51 EST) Specimens A. Cervix and/or Endocervix , ThinPrep Imaging System with Manual Evaluation 12/12/2022 15:29 [facility] Specimen Adequacy Satisfactory for Evaluation - transformation zone component present 12/12/2022 15:29 [facility] General Categorization Negative for intraepithelial lesion or malignancy 12/12/2022 15:29 [facility] Descriptive Diagnosis Fungal organisms present morphologically consistent with Alysha species. Shift in lina present suggestive of bacterial vaginosis. 12/12/2022 15:29 [facility] Attestation By the signature below, the attending physician certifies that they have personally conducted a gross and/or microscopic examination of the described specimens and rendered or confirmed the above diagnosis. 12/12/2022 15:29 [facility] at 1529 Clinical History See below 12/12/19 15:29 [facility] HPV The result for the Human Papillomavirus (HPV) Detection-High Risk Types is Negative. No E6 or E7 mRNA is detected from HPV types 16,18,31,33,35,39 ,45,51,52,56,58,5 9,66, and 68 by cable installer repairer helper mediated amplification.Pauline ting was performed on specimen [id number] and was resulted on 12/12/2022 1529 EST by TASHI, LAB INSTRUMENT RESULTS IN 12/12/2022 15:29 EST [facility] Performing Lab [facility] 12/12/2022 15:29 EST [facility] Scanned Images 12/12/2022 15:29 EST [facility] Papanicolaou smear specimen (specimen) CERVIX UTERI STRUCTURE / Unknown 12/03/2022 13:51 EST 12/04/2022 13:16 EST Miley PIRES PATHOLOGY ORDERABLES Fin al Result [facility] [address] [place] [address] documented in this encounter Visit Diagnoses Diagnosis Encounter for other general examination documented in this encounter Care Teams Pharmaceutical Representative Relationship Specialty Start Date End Date Unknown, Provider, PCP - General 11/09/19 Tom Teague MD 11/09/19 documented as of this encounter
--- OUTSIDE RECORDS SUMMARY | 2024-12-02 01:45 | XMS_ITS | Encounter Summary ---
Author Organization [facility] Address [address] [place] [address] Care Team Providers Care P D Driver Name Role Phone Unknown, Provider Primary Care Provider Tom Edwards MD Unavailable Unavailable Encounter Details Date Type Department Care Team (Late st Contact Info) Description 04/27/2024 Lab Requisition [facility] Pathology & Laboratory Medicine - [address] [address] Outr Resulting Lab, Provider Social History Tobacco [...] gonorrhoeae Result Negative Negative 04/29/2024 13:21 EDT [facility] Chlamydia trachomatis Result Negative Negative 04/29/2024 13:21 EDT [facility] Swab VAGINAL STRUCTURE / Unknown 04/27/2024 15:15 EDT 04/28/2024 21:59 EDT us Provider Outr Resulting Lab MICROBIOLOGY - GENER AL ORDERABLES Final Result [facility] [address] [place] [address] documented in this encounter Visit Diagnoses Not on filedocumented in this encounter Care Teams P D Driver Relationship Specialty Start Date End Date Unknown, Provider, PCP - General 11/09/19 Tom Teague MD 11/09/19 documented as of this encounter
--- OUTSIDE RECORDS SUMMARY | 2024-12-02 01:45 | XMS_ITS | Encounter Summary ---
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 and possibly affecting fetus, antepartum, single or unspecified fetus Lynn Reddy MD [facility] [address] OBSTET[place]ICS [place] [address] [facility] Genetics [address] [place] [phone] Referral ID Status Reason Start Date Expiration Date Visits Requested Visits Authorized [id number] Authorized Consult, Test & Treat 09/16/2024 09/16/2025 [...] CARRIER FOB ALSO CARRIER Dolores Hay CNM [address] [place] [address] [place] [address] [facility] Academic Assistant [address] [place] [address] Referral ID Status Reason Start Date Expiration Date V isits Requested Visits Authorized [id number] Closed Consult, Test & Treat PCP Updated and/or Approved 09/07/2024 09/07/2025 6 6 Encounter Details Date Type Department Care Team (Latest Contact Info) Description 09/16/2024 10:00 AM EST TH Visit (TeleHealth) Obstetrics [place] [address] Edmundo Guardado, [facility] OBSTETRICS & [place] [address] 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 [...] this encounter Progress Notes * Edmundo Guardado, [facility] - 09/16/2024 10:00 AM EST Reproductive Genetics Radha Hankins is a 29 y.o. female currently at 16w0d gestation. I met with Radha fora 68-minute genetic counseling video visit. She was located in [place] at the time of the visit. Her partner, Royce Guerra, was also present. Referring Provider: Dolores Hay CNM [address] [place] [address] [place] [address] Chief Concern Patient presents with Positive Genetic Carrier Screen cystic fibrosis History of Chief Concern Radha reports that she had a positive cystic fibrosis carrier screen in 2016. At the time, she was receiving her care through [facility] in [place], [place]. She has been unable to get any records from their office. Repeat testing was ordered by her jig and fixture maker and collected on 09/09/2024;results are pending. Royce had cystic fibrosis carrier screening ordered by Radha's jig and fixture maker and collected on 08/24/2024. I requested that the report be faxed to me, but I have not received it as of the time of this visit. 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 Patient History Past Medical History: Diagnosis Date PCOS (polycystic ovarian syndrome) Family History Royce's sister has a son (age 9) with cystic fibrosis. They live in [place]. 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 Radha is purportedly a [...] with at least one copy of the Q126lez variant are eligible for CFTR modulator therapy. [...] a false positive screen. Radha has a [id number] daughter from a previous relationship. Her daughter [...] AM EST Routine Obstetrics [place] [address] Rehana Omer MD [facility] DR OBSTETRICS [place] [address] 01/06/2025 10:30 AM EST Clinical Support Obstetrics [place] [address] Educator, [place] Art 03/20/2025 1:00 PM EDT Office Visit Medical Genetics at [address] [address] Nataly Vann [facility] [place] [address] Scheduled Referrals Name Type Priority Associated Diagnoses [...]
--- OUTSIDE RECORDS SUMMARY | 2024-12-02 01:45 | XMS_ITS | Encounter Summary ---
Author Organization [facility] Address [address] [place] [address] Care Team Providers Care Gate Manager Name Role Phone Unknown, Provider MD Primary Care Provider Tom Edwards MD Unavailable Unavailable Encounter Details Date Type Department Care Team (Late st Contact Info) Description 08/24/2024 Lab Requisition [facility] Pathology & Laboratory Medicine - [address] [address] Outr Resulting Lab, Provider Social History Tobacco [...] Ab Positive See Note 08/25/2024 10:29 EDT [facility] Comment:Presence of detectab le Varicella Zoster virus IgG antibodies. Blood VENOUS BLOOD / Unknown 08/24/2024 15:02 EDT 08/24/2024 21:52 EDT us Provider Outr Resulting Lab IMMUNOLOGY AND SEROL OGY ORDERABLES Final Result Performing Organization Address [facility] Co de Phone Number [facility] [address] [place] [address] * RUBELLA IGG ANTIBODY (08/24/2024 15:02 EDT) Rubella IgG Ab Negative See Note 08/25/2024 10:31 EDT [facility] Comment:Sample is considered negative for [...] S ORDERABLES Final Result Performing Organization Address [facility] Co de Phone Number [facility] [address] [place], [place] [address] documented in this encounter Visit Diagnoses Not on filedocumented in this encounter Care Teams Gate Manager Relationship Specialty Start Date End Date Unknown, Provider, PCP - General 11/09/19 Tom Teague MD 11/09/19 documented as of this encounter
--- OUTSIDE RECORDS SUMMARY | 2024-12-02 01:45 | XMS_ITS | Clinical Summary ---
Author Organization [facility] [place] [address] Care Team Providers Care University Administrator Name Role Phone Unavailable Primary Care Provider Unavailabl e Allergies Active Allergy Reactions Criticality Noted Date Comments Amoxicillin Hives 10/14/2024 Penicillins Hives 10/14/2024 Sulfa (Sulfonamide Antibiotics) 04/2024 Medications No known medications Active Problems Estimated Date of Delivery Comme nts Yes 03/03/2025 No known active problems Encounters Date Type Department Care Team Description 11/23/2024 1:00 PM EST TH Visit (TeleHealth) Pediatric Pulmonology at [address] [address] Robe Bae MD Cystic fibrosis carrier 10/14/2024 11:00 AM EST Office Visit Obstetrics [place] [address] Rehana Omer MD 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 and possibly affecting fetus, antepartum, single or unspecified fetus 10/14/2024 9:29 AM EST - 10/14/2024 11:59 PM EST Hospital [place] [address] Dolores Hay CNM Cystic fibrosis carrier; Planned Discharge Disposition: Home 10/14/2024 Travel 10/04/2024 Telephone Obstetrics [place] [address] Edmundo Guardado, [facility] 09/16/2024 10:00 AM EST TH Visit (TeleHealth) Obstetrics [place] [address] Edmundo Guardado, [facility] 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 and possibly affecting fetus, antepartum, single or unspecified fetus; Encounter for procreative genetic counseling 09/07/2024 Transcribe Orders eDH Incoming Referrals [phone] Dolores Hay CNM Encounter for supervision of [...] AM EST Routine Obstetrics [place] [address] Rehana Omer MD [facility] OBSTETRICS [place] [address] 01/06/2025 10:30 AM EST Clinical Support Obstetrics [place] [address] Educator, Alice Art 03/20/2025 1:00 PM EDT Office Visit Medical Genetics at [address] [address] Nataly Vann, [facility] [place] [address] Health Maintenance Due Date Last Done Comments HIV screen 2013 Hepatitis C Screening 2013 Hepatitis B vaccine (0-59 yrs) (1) 2014 Tetanus/Diphtheria/Pertussis Vaccines (1 - Tdap) 03/08 PAP Smear 2016 Covid-19 Vaccine (1 - 2023- season) 2024 Influenza (Flu) vaccine (1 o f 1 - Influenza standard series) 07/10/2024 RSV Vaccine (No Doses Required) Completed Procedures Procedure Name Priority Date/Time Associated Diagnosis Comments US OB DETAILED MORPHOLOGY Routine 10/14/2024 10:46 AM EST Cystic fibrosis carrier Planned LAB SCAN 09/26/2024 12:00 AM EST ULTRASOUND SCAN (SCAN) 09/06/2024 12:00 AM EDT from Last 3 Months [...] who have questions, please contact the health care director rn that requested your imaging first. ?Rehana Omer, Staff Physician Electronically Signed Final Report ?? 10/14/2024 11:12 am Narrative 10/14/2024 11:13 AM EST OBSTETRICS REPORT ?(Signed Final 10/14/2024 11:12 am) PATIENT INFO: ID #: ? [id number] ?: ??[birth year] (29 yrs)(F) Name: ? RADHA MURRAYANEY ? Visit Date: 10/14/2024 10:06 am PERFORMED BY: Attending: ?Kan JONES, Rehana Castañeda Performed By: ? Irma KELSEY, ??Elisa Referred By: ?DOLORSE HAY Location: ? [place] SERVICE(S) PROVIDED: [facility] - Detailed Morphology - [id number] ? [id number] INDICATIONS: 20 weeks gestation of ?Z3A.20 CF [...] Arch: ? Visualized SVC: ? Visualized Cardiac Meridian: ?Visualized Diaphragm: ? Visualized 3 Vessel View: [...] 10/14/2024 11:12 am) PATIENT INFO: ID #: [id number] : [birth year] (29 yrs)(F) Name: RADHA HANKINS Visit Date: 10/14/2024 10:06 am PERFORMED BY: Attending: Rehana Omer MD Performed By: Elisa Solis RDMS Referred By: DOLORES HAY Location: [place] SERVICE(S) PROVIDED: [facility] - Detailed Morphology - [id number] INDICATIONS: 20 weeks gestation of Z3A.20 CF [...] Visualized Ductal Arch: Visualized SVC: Visualized Cardiac Meridian: Visualized Diaphragm: Visualized 3 Vessel View: Visualized [...] who have questions, please contact the health care director rn that requested your imaging first. Rehana Omer, Staff Physician Electronically Signed Final Report 10/14/2024 11:12 am Dolores LANEM IMG US OB ORDERABLE S * Scan Doc: Lab (09/26/2024 12:00 AM EST) Narrative 09/26/2024 12:00 AM EST Ordered by an unspecified provider. Scanning Provider MEDIA MGR SCAN EXT O RDR/RSLT * Scan Doc: Ultrasound (09/06/2024 12:00 AM EDT) Anatomical Region Laterality Modality Other Narrative 09/06/2024 12:00 AM EDT Ordered by an unspecified provider. Scanning Provider MEDIA MGR SCAN EXT O RDR/RSLT from Last 3 Months
--- OUTSIDE RECORDS SUMMARY | 2024-12-02 01:45 | XMS_ITS | Encounter Summary ---
Author Organization [facility] Address [address] [place] [address] Care Team Providers Care Signal Helper Name Role Phone Unknown, Provider Primary Care Provider Tom Edwards MD Unavailable Unavailable Encounter Details Date Type Department Care Team (Late st Contact Info) Description 08/24/2024 Lab Requisition [facility] Pathology & Laboratory Medicine - [address] [address] Outr Resulting Lab, Provider Social History Tobacco [...] gonorrhoeae Result Negative Negative 08/25/2024 12:46 EDT [facility] Chlamydia trachomatis Result Negative Negative 08/25/2024 12:46 EDT [facility] Swab VAGINAL STRUCTURE / Unknown 08/24/2024 14:20 EDT 08/24/2024 23:31 EDT us Provider Outr Resulting Lab MICROBIOLOGY - GENER AL ORDERABLES Final Result [facility] [address] [place], [place] [id number] documented in this encounter Visit Diagnoses Not on filedocumented in this encounter Care Teams Signal Helper Relationship Specialty Start Date End Date Unknown, Provider, PCP - General 11/09/19 Tom Teague MD 11/09/19 documented as of this encounter
--- OUTSIDE RECORDS SUMMARY | 2024-12-02 01:45 | XMS_ITS | Encounter Summary ---
Author Organization [facility] Address [address] [place] [address] Care Team Providers Care Facilities Assistant Name Role Phone Unknown, Provider Primary Care Provider Tom Edwards MD Unavailable Unavailable Encounter Details Date Type Department Care Team (Late st Contact Info) Description 09/10/[address] [facility] Pathology & Laboratory Medicine - [address] [address] Miley Vega PA [address] [place] [phone] Encounter for other general examination Social [...] Imaging System with Manual Evaluation 09/16/2021 13:02 [facility] Specimen Adequacy Satisfactory for Evaluation - transformation zone component present 09/16/2021 13:02 [facility] General Categorization Negative for intraepithelial lesion or malignancy 09/16/2021 13:02 [facility] Attestation . 09/16/2021 13:02 [facility] at 1302 Clinical History Clinical History, Signs, Symptoms, Chief Complaint, Pertaining to This Order: See below Last Menstral Period: 08/29/21 CELLOPHANE WORKER Treatment History?: Yes 09/16/2021 13:02 [facility] Performing Lab [facility] 09/16/2021 13:02 [facility] Scanned Images 09/16/2021 13:02 [facility] Papanicolaou smear specimen (specimen) CERVIX UTERI STRUCTURE / Unknown 09/10/2021 16:01 EDT 09/11/2021 15:24 EDT us Miley PIRES PATHOLOGY ORDERABLES Fin al Result [facility] [address] [place] [address] documented in this encounter Visit Diagnoses Diagnosis Encounter for other general examination documented in this encounter Care Teams Facilities Assistant Relationship Specialty Start Date End Date Unknown, Provider, PCP - General 11/09/19 Tom Teague MD 11/09/19 documented as of this encounter
--- OUTSIDE RECORDS SUMMARY | 2024-12-02 01:45 | XMS_ITS | Encounter Summary ---
Author Organization [facility] Address [address] [place] [address] Care Team Providers Care Pearl Diver Name Role Phone Unknown, Provider MD Primary Care Provider Tom Edwards MD Unavailable Unavailable Encounter Details Date Type Department Care Team (Late st Contact Info) Description 02/26/2021 Lab Requisition [facility] Pathology & Laboratory Medicine - [address] [address] Outr Resulting Lab, Provider Social History Tobacco [...] AL ORDERABLES Final Result Performing Organization Address [facility] Co de Phone Number [facility] [address] [place] [address] * COVID-19 TESTING (02/26/2021 10:22 EDT) COVID-19 rt-PCR Result Negative Negative 02/27/2021 12:45 EDT [facility] Comment: This test has not [...] performed using the matheus SARS-CoV-2 assay ([employer] on the Matheus 6800 System Performing Lab Matheus [address] [facility] Lab 02/27/2021 12:45 EDT [facility] Swab 02/26/2021 10:2 2 EDT 02/26/2021 16:21 EDT us Provider Outr Resulting Lab MICROBIOLOGY - GENER AL ORDERABLES Final Result Performing Organization Address [facility]/ZIP Co de Phone Number [facility] [address] [place] [address] documented in this encounter Visit Diagnoses Not on filedocumented in this encounter Care Teams Pearl Diver Relationship Specialty Start Date End Date Unknown, Provider, PCP - General 11/09/19 Tom Teague MD 11/09/19 documented as of this encounter
--- OUTSIDE RECORDS SUMMARY | 2024-12-02 01:45 | XMS_ITS | Encounter Summary ---
Author Organization [facility] Address [address] [place] [address] Care Team Providers Care Cement Block Maker Name Role Phone Unknown, Provider MD Primary Care Provider Tom Edwards MD Unavailable Unavailable Encounter Details Date Type Department Care Team (Late st Contact Info) Description 08/24/2024 Lab Requisition [facility] Pathology & Laboratory Medicine - [address] [address] Outr Resulting Lab, Provider Social History Tobacco [...] Surface Ag Negative Negative 08/24/2024 22:58 EDT [facility] Blood VENOUS BLOOD / Unknown 08/24/2024 15:02 EDT 08/24/2024 21:52 EDT us Provider Outr Resulting Lab CHEMISTRY & BLOOD GA S ORDERABLES Final Result Performing Organization Address [facility] Co de Phone Number [facility] [address] [place] [address] * HEPATITIS C AB W REFLEX TO HCV RNA BY PCR (08/24/2024 15:02 EDT) Hep C Antibody Negative Negative 08/24/2024 23:38 EDT [facility] Blood VENOUS BLOOD / Unknown 08/24/2024 15:02 EDT 08/24/2024 21:52 EDT us Provider Outr Resulting Lab CHEMISTRY & BLOOD GA S ORDERABLES Final Result Performing Organization Address [facility] de Phone Number [facility] [address] [place], [place] [id number] documented in this encounter Visit Diagnoses Not on filedocumented in this encounter Care Teams Cement Block Maker Relationship Specialty Start Date End Date Unknown, Provider, PCP - General 11/09/19 Tom Teague MD 11/09/19 documented as of this encounter
--- OUTSIDE RECORDS SUMMARY | 2024-12-02 01:45 | XMS_ITS | Encounter Summary ---
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 fetus, antepartum, single or unspecified fetus Rehana Sandhu MD [facility] [address] OBSTETRICS [place] [address] [facility] [address] [place] [address] Referral ID Status Reason Start Date Expiration Date V isits Requested Visits Authorized [id number] Closed Consult Only 11/03/2024 11/03/2025 1 1 Reason for Visit * Consultation (Urgent) - Closed Specialty Diagnoses / Procedures Referred By Contparmjit t Referred To Contact Obstetrics and Gynecology Diagnoses Encounter for supervision of normal , antepartum, unspecified Cystic fibrosis carrier Detail Morph 10/07-10/20 GC Next Available CYSTIC FIBROSIS CARRIER FOB ALSO CARRIER Dolores Hay CNM [address] [place] [address] [facility] Director [address] [place] [address] Referral ID Status Reason Start Date Expiration Date V isits Requested Visits Authorized [id number] Closed Consult, Test & Treat PCP Updated and/or Approved 09/07/2024 09/07/2025 6 6 Encounter Details Date Type Department Care Team (Late st Contact Info) Description 10/14/2024 11:00 AM EST Office Visit Obstetrics [place] [phone] Rehana Sanduh MD [facility] [address] OBSTETRICS [place] [address] 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 [...] documented in this encounter Progress Notes * Rehana Sandhu MD - 10/14/2024 11:00 AM EST [...] am available if further questions should arise. REHANA SANDHU MD 10/14/2024 Cc: Dolores Hay, N[facility] [place] [address] , with copy of ultrasound report documented in this encounter Plan of Treatment Upcoming Encounters Date Type Department Care Team (Late st Contact Info) Description 01/06/2025 10:00 AM EST Routine Obstetrics [place] [phone] Rehana Sandhu MD [facility] [address] OBSTETRICS [place] [address] 01/06/2025 10:30 AM EST Clinical Support Obstetrics [place] [address] Educator, Alice Art 03/20/2025 1:00 PM EDT Office Visit Medical Genetics at [address] [phone] Nataly Vann, [facility] [address] [place] [address] Scheduled Orders Name Type Priority Associated Diagnoses [...]
--- OUTSIDE RECORDS SUMMARY | 2024-12-02 01:45 | XMS_ITS | Referral Summary ---
Author Organization [facility] Address [address] [place] [id number] Care Team Providers Care Rounding And Backing Machine Operator Name Role Phone Unknown, Provider [...] C Antibody Negative Negative 08/24/2024 23:38 EDT [facility] Blood VENOUS BLOOD / Unknown 08/24/2024 15:02 EDT 08/24/2024 21:52 EDT us Provider Outr Resulting Lab CHEMISTRY & BLOOD GA S ORDERABLES Final Result [facility] [address] [place] [address] from Last 3 Months or Most Recently Relevant to Health Maintenance Insurance MEDICA[employer] [place] Care Teams Rounding And Backing Machine Operator Relationship Specialty Start Date End Date Unknown, Provider, PCP - General 11/09/19 Tom Teague MD 11/09/19
--- OUTSIDE RECORDS SUMMARY | 2024-12-02 01:45 | XMS_ITS | Encounter Summary ---
Author Organization [facility] Address [address] [place] [address] Care Team Providers Care Principal Security Architect Name Role Phone Unknown, Provider Primary Care Provider Tom Edwards MD Unavailable Unavailable Encounter Details Date Type Department Care Team (Late st Contact Info) Description 02/18/2023 Lab Requisition [facility] Pathology & Laboratory Medicine - [address] [address] Outr Resulting Lab, Provider Social History Tobacco [...] Species Positive(A) Negative 02/20/20 13:07 EDT [facility] Alysha glabrata Negative Negative 02/19/2023 13:07 EDT [facility] Trichomonas Vaginalis Negative Negative 02/19/2023 13:07 EDT [facility] BV (Bacterial vaginosis) Positive(A) Negative 02/19/2023 13:07 EDT [facility] Swab ENTIRE VAGINA / Unknown 02/18/2023 17:35 EDT 02/18/2023 22:51 EDT us Provider Outr Resulting Lab MICROBIOLOGY - GENER AL ORDERABLES Final Result [facility] [address] [place] [address] documented in this encounter Visit Diagnoses Not on filedocumented in this encounter Care Teams Principal Security Architect Relationship Specialty Start Date End Date Unknown, Provider, PCP - General 11/09/19 Tom Teague MD 11/09/19 documented as of this encounter
--- OUTSIDE RECORDS SUMMARY | 2024-12-02 01:46 | XMS_ITS | Encounter Summary ---
Author Organization [facility] Address [address] [place] [address] Care Team Providers Care Chronic Specialist Name Role Phone Unknown, Provider Primary Care Provider Tom Edwards MD Unavailable Unavailable Encounter Details Date Type Department Care Team (Late st Contact Info) Description 12/30/2019 Lab Requisition [facility] Pathology & Laboratory Medicine - [facility] [address] [place] [address] Unknown, Provider, Social History Tobacco Use Types [...] 4th Generation Negative Negative 01/02/2020 11:19 EST [facility] Comment: If acute HIV-1 infection is suspected in a high risk ??patient, submit plasma specimen for HIV-1 RNA quantitation test. Fourth Generation assay performed on the Siemens Centaur. Blood VENOUS BLOOD / Unknown 12/30/2019 8:30 EST 12/30/2019 21:06 EST us Provider Unknown IMMUNOLOGY AND SEROLOGY ASHLEY MARTINEZ Final Result Performing Organization Address City/[facility] [address]/ZIP Co de Phone Number [facility] [address] [place] [address] * HEPATITIS C AB W REFLEX TO HCV RNA BY PCR (12/30/2019 8:30 EST) Hep C Antibody Negative Negative 01/02/2020 11:02 EST [facility] Blood VENOUS BLOOD / Unknown 12/30/2019 8:30 EST 12/30/2019 21:06 EST us Provider Unknown CHEMISTRY & BLOOD GAS ORDERA BLES Final Result Performing Organization Address [facility] [address]/ZIP Co de Phone Number [facility] [address] [place] [address] * HEPATITIS B SURFACE ANTIGEN (12/30/2019 8:30 EST) Hep B Surface Ag Negative Negative 01/02/2020 10:46 EST [facility] Blood VENOUS BLOOD / Unknown 12/30/2019 8:30 EST 12/30/2019 21:06 EST us Provider Unknown CHEMISTRY & BLOOD GAS ORDERA BLES Final Result Performing Organization Address [facility] [address]/[facility] Co de Phone Number [facility] [address] [place] [address] documented in this encounter Visit Diagnoses Not on filedocumented in this encounter Care Teams Chronic Specialist Relationship Specialty Start Date End Date Unknown, Provider, PCP - General 11/09/19 Tom Teague MD 11/09/19 documented as of this encounter
--- OUTSIDE RECORDS SUMMARY | 2024-12-02 01:46 | XMS_ITS | Encounter Summary ---
Author Organization [facility] Address [address] [place] [address] Care Team Providers Care Sheet Rock Sander Name Role Phone Unknown, Provider Primary Care Provider Tom Edwards MD Unavailable Unavailable Encounter Details Date Type Department Care Team (Late st Contact Info) Description 06/11/2020 Lab Requisition [facility] Pathology & Laboratory Medicine - [facility] [address] [place] [address] Tom Busby MD [address] [place] [phone] Disorder of the skin and subcutaneous [...] Lobular capillary hemangioma (pyogenic granuloma). 06/13/2020 11:23 [facility] Attestation By the signature below, the attending physician certifies that they have 1) personally conducted a gross and/or microscopic examination of the described specimen(s), and/or personally interpreted the results of laboratory testing of the described specimen(s), and 2) personally rendered or confirmed the above diagnosis. 06/13/2020 11:23 [facility] at 1123 Clinical History Disorder of the skin and subcutaneous tissue, unspecified, left scalp skin lesion 06/13/2020 11:23 [facility] Gross Description A. [...] sections. Angela Muse 06/12/2020 8:37 06/13/2020 11:23 [facility] Performing Lab [facility] 06/13/2020 11:23 [facility] Scanned Images 06/13/2020 11:23 [facility] Tissue TISSUE SPECIMEN FROM SKIN / Unknown 06/08/2020 16:00 EDT 06/11/2020 23:05 EDT us Tom Busby MD PATHOLOGY ORDERABLES F inal Result [facility] [address] [place] [address] documented in this encounter Visit Diagnoses Diagnosis Disorder of the skin and subcutaneous tissue, unspecified documented in this encounter Care Teams Sheet Rock Sander Relationship Specialty Start Date End Date Unknown, Provider, PCP - General 11/09/19 Tom Teague MD 11/09/19 documented as of this encounter
--- OUTSIDE RECORDS SUMMARY | 2024-12-02 01:46 | XMS_ITS | Encounter Summary ---
Author Organization [facility] Address [address] [place] [address] Care Team Providers Care Slot Technician Name Role Phone Unknown, Provider Primary Care Provider Tom Edwards MD Unavailable Unavailable Encounter Details Date Type Department Care Team (Late st Contact Info) Description 08/08/2020 Lab Requisition [facility] Pathology & Laboratory Medicine - [facility] [address] [place] [address] Miley Vega PA [address] [place] [phone] Encounter for other general examination Social [...] types, PCR Positive( A) Negative 08/22/2020 15:33 [facility] Comment:E6 OR E7 mRNA from o ne or more types of HPV types 16,18,31,33,35,39,45,51,52,56,58,59,66, and 68 is detected by distribution estimator mediated amplification. High and intermediate risk HPV types are associated with most squamous intraepithelial lesions and cervical cancers. Papanicolaou smear specimen (specimen) CERVIX UTERI STRUCTURE / Unknown 08/08/2020 22:27 EDT 08/20/2020 15:00 EDT us Miley PIRES MICROBIOLOGY - GENERAL O RDERABLES Final Result [facility] [address] [place] [address] * PAP TEST (08/08/2020 22:27 EDT) Specimens A. Cervix and/or Endocervix , ThinPrep Imaging System with Manual Evaluation 08/22/2020 15:33 [facility] Specimen Adequacy Satisfactory for Evaluation - transformation zone component present 08/22/2020 15:33 [facility] General Categorization Epithelial Cell Abnormality 08/22/2020 15:33 [facility] Descriptive Diagnosis Squamous Cell Abnormality - Atypical squamous cells, undetermined significance (ASC-US). 08/22/2020 15:33 [facility] Educational Comments [facility] recommends following ASCCP's 2012 Updated Consensus Guidelines for the Management of Abnormal Cervical Cancer Screening Tests and Cancer Precursors (JLGTD, 2013; 17(5):S1-S27). Consensus guidelines are available online at www.asccp.org. 08/22/2020 15:33 [facility] Attestation By the signature below, the attending physician certifies that they have personally conducted a gross and/or microscopic examination of the described specimens and rendered or confirmed the above diagnosis. 08/22/2020 15:33 [facility] at 1533 Clinical History Clinical History, Signs, Symptoms, Chief Complaint, Pertaining to This Order: See below Last Menstral Period: 08/01/20 08/22/2020 15:33 EDT [facility] HPV The result for the Human Papillomavirus (HPV) Detection-High Risk Types is Positive . E6 OR E7 mRNA from one or more types of HPV types 16,18,31,33,35,39 ,45,51,52,56,58,5 9,66, and 68 is detected by distribution estimator mediated amplification. High and intermediate risk HPV types are associated with most squamous intraepithelial lesions and cervical cancers. Testing was performed on specimen [id number] and was resulted on 08/22/2020 1523 EDT by TASHI, LAB INSTRUMENT RESULTS IN 08/22/2020 15:33 EDT [facility] Performing Lab [facility] 08/22/2020 15:33 EDT [facility] Scanned Images 08/22/2020 15:33 EDT [facility] Papanicolaou smear specimen (specimen) CERVIX UTERI STRUCTURE / Unknown 08/08/2020 22:27 EDT 08/10/2020 10:30 EDT us Miley PIRES PATHOLOGY ORDERABLES Fin al Result [facility] [address] [place] [address] documented in this encounter Visit Diagnoses Diagnosis Encounter for other general examination documented in this encounter Care Teams Slot Technician Relationship Specialty Start Date End Date Unknown, Provider, PCP - General 11/09/19 Tom Teague MD 11/09/19 documented as of this encounter
--- OUTSIDE RECORDS SUMMARY | 2024-12-02 01:46 | XMS_ITS | Continuity of Care Document ---
Author Name [facility] Organization [facility] Care Team Providers Care Global Risk Management Director Name Role Phone [facility] Unavailable Unavailable Problems [...] Site Reaction Lot Number CVX Code Drug Speech Communication Instructor Status Comments Source influenza,tri valent, recombinant, inj-pf 2015 z[place]entley ht Arm [id number] Seqirus complet ed influenza ,trivalen t, recombina nt, inj-pf 09/30/16 Given Ambulat ory Pharmac y tetanus, diphtheria, acellular pertu is 2015 Yareli t Arm [id number] 115 [facility] ne complet ed tetanus, diphtheri a, acellular pertussis 09/30/16 Given Ambulat ory Pharmac y tetanus toxoid, reduced diphtheria toxoid, and acellular pertu is vaccine, adsorbed 0 2015 NIEVES EMERSON [id number] [facility] [employer] (SK[employer]) complet ed tetanus toxoid, reduced diphtheri a toxoid, and acellular pertussis vaccine, adsorbed DoD Seasonal, trivalent, recombinant, injectable influenza vaccine, preservative free 0 2015 NIEVES EMERSON [id number] Seqirus (SEQ) complet ed Seasonal, trivalent [...] ADM Date DC Date Status Disposition Source [facility] Sandra Mcdaniel MA(AMH F01A Red) OUTPATIENT [id number] [facility] DODIE BERNSTEIN 02/13 Released w/o Limitations [facility] [place] [facility] [place] TELE CONSULT [id number] Notes Entered by: Puneet MORALEZ 30 Apr 2015 1021 ------- ------- ------- ------- -- [facility] DODIE BERNSTEIN 04/30 [facility] [place]) OUTPATIENT [id number] [facility] Jose/i rregula r juan joséu [facility] DODIE BERNSTEIN 05/08 Released w/o Limitations [facility] [place] [facility] [place] TELE CONSULT [id number] Notes Entered by: Maira NICHOLS 17 May 2015 1302 ------- ------- ------- ------- -- [facility] Valdez 05/17 Referred for Appointment [facility] [place] [facility] [place] [employer] at [facility]) OUTPATIENT [id number] The time between periods has increas ed (oligom enorrhe a) TORI MASON T 05/25 Released w/o Limitations [facility] [place] [facility] at [facility]) [facility] [place] [employer] at [facility]) OUTPATIENT [id number] f/u fence rider TORI MASON T 06/26 Released w/o Limitations [facility] [place] [employer] at [facility]) [facility] [place] [employer] at [facility]) OUTPATIENT [id number] f/u fence rider TORI MASON T 07/26 Released w/o Limitations [facility] [place] [employer] at [facility]) [facility] [place] [employer] at [facility]) TELE CONSULT [id number] Notes Entered by: DELMI NATARAJAN 01 Aug 2015 0839 ------- ------- ------- ------- -- current medicat ion ineffec tive TORI MASON T 08/01 [facility] [place] [employer] at [facility]) [facility] [place] [employer] at [facility]) OUTPATIENT [id number] follow up fence rider MICHAEL GOMEZ O 08/30 Released w/o Limitations [facility] [place] [employer] at [facility]) [facility] [place] [employer] at [facility]) TELE CONSULT [id number] Notes Entered by: FRANK MOORE 10 Sep 2015 0749 ------- ------- ------- ------- -- request ing medicat MICHAEL Clay O 09/10 [place] [employer] at [facility]) [place], [place] [employer] at [facility]) OUTPATIENT [id number] F/U CLIENT EXPERIENCE ADMINISTRATOR would like to discuss options MICHAEL GOMEZ O 12/06 Released w/o Limitations [place] [employer] at [facility]) [place] TELE CONSULT [id number] Notes Entered by: Bisi TOVAR 31 Jan 2016 0813 ------- ------- ------- ------- -- [facility] LAVON NICHOLS S 01/30 [place]erred [place] App[place] TELE CONSULT [id number] Notes Entered by: SUPA SUTTON 31 Jan 2016 1052 ------- ------- ------- ------- -- patient needs an updated referra l for ongoing care with the ob clinic at [facility]. LAVON NICHOLS S 01/30 [place] for App[place] [facility]) OUTPATIENT [id number] f/u fence rider - inferti MICHAEL Christianson O 02/07 Released w/o Limitations [facility] [place] at [facility]) [facility] [place] [employer]) OUTPATIENT [id number] MICHAEL RAZA O 02/13 Released w/o Limitations [place] at [facility]) [place] [facility]) OUTPATIENT [id number] ultraso und (book per Richy de luna) MICHAEL GOMEZ 02/27 Released w/o Limitations [place] at [facility]) [place] TELE CONSULT [id number] Notes Entered by: MAURA BERRIOS 24 Mar 2016 0750 ------- ------- ------- ------- -- PCM:MARNIE BARRIENTOS Pt called request [facility] labs to confirm pregnan cy. LAVON NICHOLS 03/24 [place] F01A Red[place] F01A Red) TELE CONSULT [id number] Notes Entered by: Miya BERNSTEIN 25 Mar 2016 1800 ------- ------- ------- ------- -- LAB CARLA MORALEZ 03/25 Immediate [place] F01A Red[place] [employer] [facility]) TELE CONSULT [id number] Notes Entered by: Ervin BROWNLEE 27 Mar 2016 0837 ------- ------- ------- ------- [facility] HO BROWNLEE 03/27 [place] for App[place] [employer] at [facility]) [place] [employer]) TELE CONSULT [id number] Notes Entered by: Valdez KULKARNI 28 Mar 2016 1840 ------- ------- ------- ------- -- vag bleedin g had positiv e hcg on clomid and progest erone. KECIA KULKARNI 03/28 [place] [employer] [facility] at [facility]) [place] [employer]) OUTPATIENT [id number] follow up ER-sab (stefan Santana) USMAN Lyon 04/01 Released w/o Limitations [place] at [facility]) [place] [employer]) OUTPATIENT [id number] NIKHIL cheung - discuss next step MICHAEL GOMEZ 04/30 Released w[place] Limitations [place] at [facility]) [place] TELE CONSULT [id number] Notes Entered by: PARAM CEJA RA 14 May 2016 0922 ------- ------- ------- ------- -- Pcm Bernstein- pregnan cy test request CARLA MORALEZ 05/14 Other Not Elsewhere Classified [place] TELE CONSULT [id number] Notes Entered by: Nito GRAMAJO 14 May 2016 1205 ------- ------- ------- ------- -- lab LAVON NICHOLS 05/14 [place] TELE CONSULT [id number] Notes Entered by: Nito GRAMAJO 14 May 2016 1231 ------- ------- ------- ------- -- lab LAVON NICHOLS 05/14 [place] [employer] [facility]) TELE CONSULT [id number] Notes Entered by: KEMErvin MISHRA 16 May 2016 1316 ------- ------- ------- ------- [facility] HO BROWNLEE 05/16 Referred for Appointment [facility] Sandra Mcdaniel MA([facility] [facility] at [facility]) [facility] Sandra Mcdaniel [place] [employer] [employer]) OUTPATIENT [id number] [facility] u/s TIM DESAI 05/22 Released w/o Limitations [facility] Sandra Mcdaniel [place] [employer] [employer]) [facility] Sandra Mcdaniel MA([facility] [employer] at [facility]) OUTPATIENT [id number] ob reg HO BROWNLEE 06/03 Released with Work/Duty Limitations [facility] ROB Esparza([facility] [employer] at [facility]) [facility] Sandra Mcdaniel MA([facility] [employer] [facility]) OUTPATIENT [id number] New OB TIM DESAI 06/10 Released w/o Limitations [facility] ROB Esparza([facility] [employer] at [facility]) [facility] Sandra Mcdaniel MA([facility] [employer] at [facility]) TELE CONSULT [id number] Notes Entered by: FRANK DESAI 20 Jun 2016 1244 ------- ------- ------- ------- -- results TIM DESAI 06/20 [facility] ROB Esparza([facility] [employer] at [facility]) [facility] Sandra Mcdaniel MA([facility] [facility] at [facility]) OUTPATIENT [id number] 14 weeks TIM BARRERA 07/09 Released w/o Limitations [facility] ROB [place]ar[place] [facility]) [facility] [place]) TELE CONSULT [id number] Notes Entered by: Bisi GAN 01 Aug 2016 1320 ------- ------- ------- ------- -- pap results ARMANDO MARY ELLEN M 08/01 Referred for Appointment [place] [facility] at [facility]) [facility] [place] [place] TELE CONSULT [id number] Notes Entered by: Wen NAGY 14 Aug 2016 0754 ------- ------- ------- ------- -- Transfe r In GARLAND RODRIGUEZ 08/14 [facility] [place] [facility] [place] OUT[place]IENT [id number] intake/ transfe r kristine FEB advised of paper work GERALDO MASON 08/21 Released w/o Limitations [facility] [place] [facility] [place] [employer] OUTPATIENT [id number] NOB transfe r in KRISTINE Dec 26 NIEVES LAO 08/21 Released w/o Limitations [facility] [place] [facility] [place] OUTPATIENT [id number] GRP:EDC :DEC NIEVES LAO 09/02 Released w/o Limitations [facility] [place] [facility] [place] [employer] OUTPATIENT [id number] GRP:EDC :B NIEVES LAO 09/24 Released w/o Limitations [facility] [place] [facility] [place] [employer] OUTPATIENT [id number] GRP:EDC :B MARY MEDINA 10/24 Released w/o Limitations [facility] [place] [facility] [place] [id number] Notes Entered by: CHARLA GOYAL 17 Nov 2016 1302 ------- ------- ------- ------- -- IUP @ 33+3 weeks for decreas ed movemen HOWARD Everett 11/17 Released w/o Limitations [facility] [place] [facility] [place] [employer] OUTPATIENT [id number] GRP:EDC :DEC NIEVES LAO 11/23 Released w/o Limitations [facility] [place] [facility] [place] [place] OUTPATIENT [id number] GRP:EDC :DEC NIEVSE LAO 12/01 Released w/o Limitations [facility] [place] [facility] [place] OUTPATIENT [id number] Notes Entered by: Puneet MUSE 10 Dec 2016 1207 ------- ------- ------- ------- -- Breech present ation. [facility] ical consult ADITYA Schofield 12/10 Released w/o Limitations [facility] [place] [facility] [place] [id number] ADITYA Maya 12/12 Released w/o Limitations [facility] [place] [facility] [place] OUTPATIENT [id number] GRP:EDC :DEC NIEVES LAO 12/16 Released w/o Limitations [facility] [place] [facility] [place]01[place] [facility] 2[place] OUTPATIENT [id number] obgyn dep ed TIM SILVA 12/16 Released w/o Limitations [facility] [place] [facility] 2[place] [facility] [place] [employer] [place] OUTPATIENT [id number] 38 wk mesfin clark kimberly cancell ed, need KASIA LEBLANC 12/24 Released w/o Limitations [facility] [place] [facility] [place] OUTPATIENT [id number] 39WK YOHANNES MARIANO 12/30 Released w/o Limitations [facility] [place] [facility] [place] DIRECT TO [facility] FROM OTHER THAN ER OR [facility] [id number] EMA MARTIN 01/01 DISCHARGED HOME [facility] [place] OUTPATIENT [id number] RED ITCHY RASH ON BELLY 13 DAYS POST MARY MEDINA 01/14 Released w/o Limitations [place] Procedures Combined list of: 1) Procedures from [facility] facilities [facility], not all [place] non-surgical procedures are included; 2) All procedures from the Department of Defense facilities. Procedure Procedure Type Code Date Perfomer Comments Sourc e No data available for this section Ambulato ry Pharmacy REPAIR PERINEUM SKIN, EXTERNAL APPROACH 01/03 [facility] DRAINAGE OF AMNIOTIC FLUID, THERAPEUTIC FROM PRODUCTS OF CONCEPTION, VIA NATURAL OR ARTIFICIAL OPENING 01/03 [facility] DELIVERY OF PRODUCTS OF CONCEPTION, [...] AND/OR FORCEPS); 01/01 DoD NON-STRESS TEST 12/31 [facility] SUBSEQ CARE VISIT () [EXCLS:PATIENTS WHO ARE SEEN FOR A CONDITION UNREL TO / CARE (EG,AN UP RESPIR INFECT;PATIENTS SEEN FOR CONSULTATION ONLY,NOT FOR CONT CARE)] 12/30 [facility] ULTRASOUND, UTERUS, REAL TIME WITH IMAGE DOCUMENTATION, LIMITED (EG, HEART BEAT, PLACENTAL LOCATION, POSITION AND/OR QUALITATIVE AMNIOTIC FLUID VOLUME), 1 OR MORE FETUSES 12/24 [facility] HEALTH AND BEHAVIOR INTERVENTION, EACH 15 MINUTES, [id number]; GROUP (2 OR MORE PATIENTS) 12/16 DoD [...] FOR CONSULTATION ONLY,NOT FOR CONT CARE)] 12/09 [facility] SUBSEQ CARE VISIT () [EXCLS:PATIENTS WHO ARE SEEN FOR A CONDITION UNREL TO / CARE (EG,AN UP RESPIR INFECT;PATIENTS SEEN FOR CONSULTATION ONLY,NOT FOR CONT CARE)] 11/25 [facility] NON-STRESS TEST 11/17 [facility] EDUCATIONAL SUPPLIES, SUCH BOOKS, TAPES, AND PAMPHLETS, FOR THE PATIENT'S EDUCATION AT COST TO PHYSICIAN OR OTHER QUALIFIED HEALTH CALL CENTER DISPATCHER 10/28 [facility] INFLUENZA VIRUS VACCINE, TRIVALENT (IIV3), SPLIT VIRUS, PRESERVATIVE FREE, 0.5 ML DOSAGE, FOR INTRAMUSCULAR USE 09/30 [facility] SUBSEQ CARE VISIT () [EXCLS:PATIENTS WHO ARE SEEN FOR A CONDITION UNREL TO / CARE (EG,AN UP RESPIR INFECT;PATIENTS SEEN FOR CONSULTATION ONLY,NOT FOR CONT CARE)] 09/02 [facility] INITIAL CARE VISIT (REPORT AT 1ST ENCOUN W HEALTH CALL CENTER DISPATCHER PROVIDING OBSTETRIC CARE. REPORT ALSO DATE OF VISIT &,IN A SEPARATE FIELD,THE DATE OF THE LAST MENSTRUAL PERIOD) 08/21 [facility] PATIENT EDUCATION, NOT OTHERWISE CLASSIFIED, NON-PHYSICIAN PROVIDER, INDIVIDUAL, PER SESSION 08/21 [facility] SUBSEQ CARE VISIT () [EXCLS:PATIENTS WHO ARE SEEN FOR A CONDITION UNREL TO / CARE (EG,AN UP RESPIR INFECT;PATIENTS SEEN FOR CONSULTATION ONLY,NOT FOR CONT CARE)] 07/09 [facility] SCREENING PAPANICOLAOU SMEAR; OBTAINING, PREPARING AND CONVEYANCE OF CERVICAL OR VAGINAL SMEAR TO LABORATORY 06/10 [facility] EDUCATIONAL SUPPLIES, SUCH BOOKS, TAPES, AND PAMPHLETS, FOR THE PATIENT'S EDUCATION AT COST TO PHYSICIAN OR OTHER QUALIFIED HEALTH CALL CENTER DISPATCHER 06/03 [facility] ULTRASOUND, UTERUS, REAL TIME WITH [...] MED DIS 03/24 DoD ULTRASOUND, TRANSVAGINAL 02/27 [facility] CATHETERIZATION AND INTRODUCTION OF SALINE [...] W/IN THE PREV 7 DAYS,USE THE INTERNET/SIMILAR [employer] COMM NETWORK 01/30 [facility] ONLINE ASSESS &MANAG SERV PROVIDE,A QUAL NONPHYS HCP TO AN ESTABLISHED PAT/GUARDIAN,NOT ORIGINAT FRM RELAT ASSESS &MANAG SERV PROVIDE W/IN THE PREV 7 DAYS,USE THE INTERNET/SIMILAR ELECT COMM NETWORK 04/30 [facility] OB Services Antepartum Care Only Subsequent Single Visit OB Services Antepartum Care Only Subsequent Single Visit 0502F 12/30 YOHANNES CHOI [facility] Ultrasound Obstetric Limited Evaluation Ultrasound Obstetric Limited Evaluation 60286 12/25 KASIA LEBLANCLE [facility] OB Services Antepartum Care Only Subsequent Single Visit OB Services Antepartum Care Only Subsequent Single Visit 050F 12/25 KASIA LEBLANCLE [facility] OB Services Antepartum Care Only Subsequent Single Visit OB Services Antepartum Care Only Subsequent Single Visit 0502F 12/16 NIEVES LAO [facility] Health And Behav Intervention, Each Additional 15 Min Grp (2 Or More) Health And Behav Intervention, Each Additional 15 Min Grp (2 Or More) 31074 12/16 TIM SILVA [facility] Ultrasound Obstetric Limited Evaluation Ultrasound Obstetric Limited Evaluation 75927 12/12 [place] Patient informed of limitations of bedside ultrasound. Patient verbalize understanding. positive cadiac activity cephalic anterior placenta munoz amniotic fluid index: 14.53 [facility] Non-Stre Test (___ 0,2) Non-Stress Test (___ 0,2) 47839 12/12 [place] reactive NST, baseline = 135, moderate variablity, multiple accelerations to 150, no decelerations, positive movement, no contractions noted. Patient denies any complaints at this time. next OB appointment 16 Dec 2016 Patient discharged with kick counts instructions and signs and symptoms of labor. Patient verbalize understanding. [facility] Ultrasound Obstetric Limited Evaluation Ultrasound Obstetric Limited Evaluation 61005 12/10 ADITYA MUSE [facility] OB Services Antepartum Care Only Subsequent Single Visit OB Services Antepartum Care Only Subsequent Single Visit 0502F 12/09 NIEVES LAO OB Services Antepartum Care Only Subsequent Single Visit OB Services Antepartum Care Only Subsequent Single Visit 0502F 11/25 NIEVES LAO [facility] Non-Stre Test (___ 0,2) Non-Stress Test (___ 0,2) 53426 11/17 CHARLA GOYAL Reactive NST, baseline 130 , accels present, no decels noted. +FM no uc's noted Next OB appt: Nov Pt sent home with labor precautions and kick counts. Pt was reassured of movement. Pt instructed to return immediately if she has anymore decreased movement. [facility] Physician Supervised Services Provision Of Educational Supplies Physician Supervised Services Provision Of Educational Supplies 28504 10/28 MARY MEDINA [facility] OB Services Antepartum Care Only Subsequent Single Visit OB Services Antepartum Care Only Subsequent Single Visit 0502F 10/28 MARY MEDINA [facility] OB Services Antepartum Care Only Subsequent Single Visit OB Services Antepartum Care Only Subsequent Single Visit 0502F 09/30 SHILONIEVES HOOD [facility] Immunization Administration By Injection, Each Additional Vaccine Immunization Administration By Injection, Each Additional Vaccine 32536 09[facility] Immunization Administration By Injection, One Vaccine Immunization Administration By Injection, One Vaccine 57470 09/30 [facility] Tdap Vaccine Tdap Vaccine 63740 09/30 SHILONIEVES Delgado [facility] OB Services Antepartum Care Only Subsequent Single Visit OB Services Antepartum Care Only Subsequent Single Visit 0502F 09/02 SHILONIEVES HOOD TAD [facility] OB Services Antepartum Care Only First Visit, With Report OB Services Antepartum Care Only First Visit, With Report 0500F 08/21 SHILONIEVES HOOD [facility] Patient education, not otherwise cla ified, non-physician provider, individual, per se ion 08/21 GERALDO MASON [facility] OB Services Antepartum Care Only Subsequent Single Visit OB Services Antepartum Care Only Subsequent Single Visit 0502F 07/09 TIM DESAI [facility] Ultrasound Trans[place] [address] 06/11 TIM DESAI [facility] OB Services Antepartum Care Only First Visit, With Report OB Services Antepartum Care Only First Visit, With Report 0500F 06/11 TIM DESAI [facility] Screening papanicolaou smear; obtaining, preparing and conveyance of cervical or vaginal smear to laboratory 06/11 TIM DESAI [facility] Physician Supervised Services Provision Of Educational Supplies Physician Supervised Services Provision Of Educational Supplies 44395 06/03 HO BROWNLEE [facility] Patient Counseling Medical Management Individual Patient Patient Counseling Medical Management Individual Patient 26302 06/03 HO BROWNLEE [facility] Ultrasound [place] [address] 05/22 TIM DESAI [facility] Non-Physician Phone Call To Patient/Provider Brief (5-10min) Non-Physician Phone Call To Patient/Provider Brief (5-10min) 27205 05/14 RAHEL NICHOLSCA S [facility] Non-Physician Phone Call To Patient/Provider Brief (5-10min) Non-Physician Phone Call To Patient/Provider Brief (5-10min) 49952 03/26 CARLA MORALEZ [facility] Non-Physician Phone Call To Patient/Provider Brief (5-10min) Non-Physician Phone Call To Patient/Provider Brief (5-10min) 78974 03/24 RAHEL NICHOLSCA Lizette [facility] Ultrasound Trans-Vaginal Ultrasound Trans-Vaginal 91939 02/28 MICHAEL GOMEZ [facility] Hysterosalpingograph y With Catheter Contrast Injection Hysterosalpingograph y With Catheter Contrast Injection 33468 02/14 MICHAEL GOMEZ [facility] Non-Physician Phone Call To Patient/Provider Brief (5-10min) Non-Physician Phone Call To Patient/Provider Brief (5-10min) 43228 01/30 SIMONE LAVON S [facility] Internet Med Svc Qual Nonphys Healthcare Prof Up To 7 Days Estab Patient Internet Med Svc Qual Nonphys Healthcare Prof Up To 7 Days Estab Patient 30326 01/30 SIMONE LAVON S [facility] Internet Med Svc Qual Nonphys Healthcare Prof Up To 7 Days Estab Patient Internet Med Svc Qual Nonphys Healthcare Prof Up To 7 Days Estab Patient [id number] 04/30 CARLA MORALEZ [facility] Social History Combined list of [...] Plan No data available for this section 12/02/2024 Ambulatory Pharmacy Functional Status Combined list of recent functional and cognitive assessments recorded at [employer] (VA).VA Functional Susan Measurement (FIM) Scale: 1 = Total Assistance (Subject = 0% +), 2 = Maximal Assistance (Subject = 25% +), 3 = Moderate Assistance (Subject = 50% +), 4 = Minimal Assistance (Subject = 75% +), 5 = Supervision, 6 = Modified Susan (Device), 7 = Complete Susan (Timely, Safely). Assessment Date/Time Source Assessment Type Assessment Skill Assessment Score Assessment Details No data available for this section
--- OUTSIDE RECORDS SUMMARY | 2024-12-02 01:46 | XMS_ITS | Encounter Summary ---
Author Organization [facility] Address [address] [place] [address] Care Team Providers Care Veterinary Microbiologist Name Role Phone Unknown, Provider MD Primary Care Provider Tom Edwards MD Unavailable Unavailable Encounter Details Date Type Department Care Team (Late st Contact Info) Description 12/29/2019 Lab Requisition [facility] Pathology & Laboratory Medicine - [facility] [address] [place] [address] Unknown, Provider, Social History Tobacco Use Types [...] gonorrhoeae Result Negative Negative 12/30/2019 13:26 EST [facility] Chlamydia trachomatis Result Negative Negative 12/30/2019 13:26 EST [facility] Swab ENTIRE VAGINA / Unknown 12/29/2019 17:40 EST 12/29/2019 21:43 EST us Provider Unknown MICROBIOLOGY - GENERAL ORDER GUILLAUME Final Result [facility] [address] [place] [address] documented in this encounter Visit Diagnoses Not on filedocumented in this encounter Care Teams Veterinary Microbiologist Relationship Specialty Start Date End Date Unknown, Provider, PCP - General 11/09/19 Tom Teague MD 11/09/19 documented as of this encounter
--- OUTSIDE RECORDS SUMMARY | 2024-12-02 01:46 | XMS_ITS | Encounter Summary ---
Author Organization [facility] Address [address] [place] [address] Care Team Providers Care Rail Track Maintainer Name Role Phone Unknown, Provider Primary Care Provider Tom Edwards MD Unavailable Unavailable Encounter Details Date Type Department Care Team (Late st Contact Info) Description 08/31/2020 Lab Requisition [facility] Pathology & Laboratory Medicine - [facility] [address] [place] [address] Jaskaran Lugo MD [address] [place] [address] [phone] Encounter for other general examination Social History [...] LEXIS YU(ASCP) 09/03/2020 8:50 09/04/2020 13:47 T [facility] Performing Lab [facility] 09/04/2020 13:47 [facility] Scanned Images 09/04/2020 13:47 T [facility] Tissue ENTIRE WALL OF CERVIX / Unknown 08/31/2020 14:00 EDT 08/31/2020 23:10 EDT Tissue specimen (specimen) CERVIX UTERI STRUCTURE / Unknown 08/31/2020 14:00 EDT 08/31/2020 23:10 EDT us Jaskaran Lugo MD PATHOLOGY ORDERABLES F inal Result [facility] [address] [place] [address] documented in this encounter Visit Diagnoses Diagnosis Encounter for other general examination documented in this encounter Care Teams Rail Track Maintainer Relationship Specialty Start Date End Date Unknown, Provider, PCP - General 11/09/19 Tom Teague MD 11/09/19 documented as of this encounter
[2024-12-02 11:09] LABS: HCT 32.9 % (36.0-46.0); MCH 31.7 pg (27.0-33.0); MCHC 33.4 % (32.0-36.0); MCV 95 fL (80-95); MPV 8.4 fL (8.0-11.0); Platelet Count 228 10^3/uL (130-400); RBC 3.47 10^6/uL (3.93-5.22); RDW 12.4 % (11.7-14.6); RDW-SD 42.9 fL; WBC 7.96 10^3/uL (4.4-10.8)
[2024-12-02 11:25] LABS: Glucose,1 Hr (Glucola) 110 mg/dL (80-140)
== END 2024-12-02 01:44 | disposition home or self-care (01) ==
LOC: LBO 01:43
PROVIDERS: Visit Provider Advanced Practice Midwife
DX: Z34.92 Encounter for supervision of normal pregnancy, unspecified, second trimester (principal)
CPT/HCPCS: 36415; 82950; 85027

== ENCOUNTER 2025-02-02 15:07 | Outpatient (REF) | payer MEDICAID, SELFPAY | END 2025-02-02 15:08 | disposition home or self-care (01) | LOC: LBN 15:07 | PROVIDERS: Visit Provider Advanced Practice Midwife | DX: Z34.93 Encounter for supervision of normal pregnancy, unspecified, third trimester (principal) | CPT/HCPCS: 87081 ==

== ENCOUNTER 2025-02-23 16:30 | Inpatient (IN) | payer MEDICAID, SELFPAY ==
[2025-02-23] VITALS (8 sets, daily range): BP systolic 96–117; BP diastolic 51–71; PULSE 68–255; RESP 16; TEMP 36.6; O2SAT 80–100
--- NOTE | 2025-02-23 16:41 | HPE_ITS ---
Date of service: 02/23/25 Time of Service: 16:51 Assessment and Plan Assessment and plan (1) Normal labor: Status: Acute Assessment and plan: A: 29 yo @ 38+6 wks, spontaneous onset labor GBS negative, category 1 tracing Pt and FOB are CF carriers, [facility] MFM consult done, amnio declined, nml serial u/s eval of bowel Low risk for SD or PPH P: Admit to L&D, CBC and T&S, intermittent auscultation after initial cat 1 tracing Pt plans unmedicated , comfort measures as desired Expectant management, anticipate (2) Cystic fibrosis carrier: Status: Acute Assessment and plan: Will notify Peds of parental CF carrier status and [facility] consult and scan results OB-HPI Labor/Delivery History of Present Illness Reason for Visit: Term Labor Chief Complaint: Uterine Contractions (Contractions all day with minor spotting, became more painful at 1430 and came to hospital. NO ROM, no vomiting,). KRISTINE Calculator Estimated Delivery Date Method Current WG Current Estimate 03/03/25 Ultrasound #1 38w 6d Other Estimates 02/01/25 LMP (Uncertain) 43w 1d History of Present Expected Delivery Route/Plan - CNM FOB/partner - Royce Guerra (first child) BB no circ Rubella Non-Immune, pt plans to decline MMR Would like access to tub for labor/, avoid epidural GBS negative Specific Issues/Plan 1. cfDNA low risk male 2. Previously identified as CF carrier, Royce tested 08/24 +carrier, declined AFP 2a. Referral to [facility] for genetic counseling and MFM consultation - normal anatomy. 2b. Pt declined amniocentesis; will have 32 wk u/s at [facility] 01/06/25: nml findings, no ileus seen 3. Pt declines vaccines during except for TDaP 4. Hgb 11.3 at 20 wks, will begin iron tab every other day. Hgb 11.0 at 28 weeks 4a. At 36 wks hgb 10.2, increased to iron tab every day 5. Vertigo at 20 wks, comfort measures advised, will monitor and consider EENT referral 6. UTI diagnosed at urgent care- [facility] 10/20-neg Assessment: History Reviewed & Current Review of Systems Narrative: ROS noncontributory other than HPI PFSH All Active Problems (Updated 02/23/25 @ 16:46 by Kanchan Jaimes) Normal labor (Acute) Anemia affecting (Acute) Vertigo (Acute) Cystic fibrosis carrier (Acute) partner also a carrier Rubella non-immune status, antepartum (Acute) (Acute) Medical History (Updated 02/23/25 @ 16:46 by Kanchan Jaimes) E-coli UTI Size of fetus inconsistent with dates in first trimester Pap smear abnormality of cervix ASCUS pap with HPV 2020 and colposcopy Female hirsutism Oligomenorrhea Polycystic ovarian syndrome Surgical History [place] teeth extracted Social History Smoking risk assessment performed?: No Alcohol Intake: current Alcohol Intake frequency: a few times a month Alcohol type: wine Drug use: Never Household members: significant other, children and other Details: from daughter's father. Star BFx1yr. Pt's D-Shaina, Number of Children: 1 number of grandchildren: 0 current occupation: [employer] in [employer] Sexually active: Yes History History 3 Para 1 Hx # Term Pregnancies 1 Multiple births 0 Hx # Pregnancies 0 Ectopic pregnancies 0 AB induced 0 Hx Number of Living Children 1 AB spontaneous 1 Past Pregnancies Del. Date GA/Weeks # Preg Succ Route Wgt Sex Labor Lgth Anesth esia Location [facility] 01/01/17 40 No Yes vaginal 6 lb 9 oz Female local [facility], Shaina Delivery Date: 01/01/17 Last Updated by: Kanchan Jaimes Successful ECV to turn breech, nml labor/, Shaina Meds Allergies and Home Medications Allergies Allergy/AdvReac Type Severity Reaction Status Date / Time amoxicillin Allergy Mild Hives Verified 02/17/25 10:28 Penicillins Allergy Mild Hives Verified 02/17/25 10:28 Sulfa (Sulfonamide Allergy Hives Verified 02/17/25 10:28 Antibiotics) adhesive AdvReac Skin Rash Unverified 02/17/25 10:28 Home Medications ?Medication ?Instructions ?Recorded ?Confirmed ?Type vitamin no.180-ferrous 1 tab PO DAILY #90 tabs 09/02/24 02/23/25 Rx fumarate 27 mg-folic acid 1 mg tablet ( Plus Vitamin-Mineral) ferrous sulfate 325 mg (65 mg 325 mg PO QDAY #90 tabs 02/10/25 02/23/25 Rx iron) tablet Exam Physical Exam Vital Signs Reviewed: Yes Constitutional Constitutional: moderate distress, average body habitus and cooperative Detailed Labor and Delivery Exam Dilation: 3 Effacement (%): 80 station: -2 Position: ROP Cervix position: mid Consistency: medium ADAMS Score(Cervical Ripeness Score): 8 Amniotic Membrane Status: Intact Contraction Frequency(min): q4-5 Contraction Duration(sec): 60 Contraction Intensity: Moderate Fetus A Heart Rate Baseline: 125 Monitor Accelerations: Present Monitor Decelerations: None Variability: Moderate (6-25 BPM) Categories: Category I Est. Weight: 7 lb 7.931 oz Est. Weight: 3400 gms HEENT Exam HEENT Exam: Normal Neck Exam Neck Exam: Normal Chest/Brest/Axilla Exam Chest Exam: Normal Breast Exam Breast Exam: Not Done Respiratory Exam Respiratory Exam: Normal Cardiovascular Exam Cardiovascular Exam: Normal Abdominal Exam Abdominal Exam: Normal (Gravid, nontender) Rectal Exam Rectal Exam: Normal Exam Exam: Normal Extremities Exam Extremities Exam: Normal Back/Spine/Pelvis Exam Back Exam: Normal Pelvis Adequate: Yes (proven to 6'9) Skin Exam Skin Exam: Normal Neurological Exam Neurological Exam: Normal Psychiatric Exam Psychiatric Exam: Normal Results Results Group Beta Strep: Negative Blood Type: A+ Rubella Status: Nonimmune Varicella Immunity: Immune Risk Assessment Risk for Shoulder Dystocia Historical/Initial OB: NEGATIVE FOR: Pelvic Abnormality, Pre- BMI>30, Previous Shoulder Dystocia or Previous Macrosomia 36 Weeks: NEGATIVE FOR: Current Gestational DM, EFW>4500gms or Maternal Weight Gain>40lbs Increased Risk?: No Delivery Plan @ 36wks: Risk for Pre-Eclampsia Yes, if one or more: NEGATIVE FOR: Hx Pre-E/Gest HTN, Chronic HTN, Multiple Gestation, Pre-gestational DM, Renal Disease, Systemic Lupus or APA Syndrome Yes, if 2 or more: NEGATIVE FOR: Nulliparity, Age>= 35 yrs, >10yr btwn pregnancies, BMI>30, ethinicty, Mother/Sister w/ Pre-E or Previous IUGR Risk for Post- Hemorrhage Initial: NEGATIVE FOR: Multiple Gestation, Previous PPH, Known Clotting Deficiency, Grand Multiparity or Anticoagulation 36 Weeks: NEGATIVE FOR: Anemia, hgb<10, Low platelets(thrombocytopenia), Gestational HTN or Pre-E, Polyhydraminios or EFW>4500gms At Risk?: No Counseled re: Active Management: Yes Risks Reviewed Risks Reviewed Upon Admission: Yes
[2025-02-23 16:50] LABS: HGB 11.7 g/dL (11.2-15.7); MCH 31.9 pg (27.0-33.0); MCHC 33.4 % (32.0-36.0); MCV 95 fL (80-95); MPV 8.6 fL (8.0-11.0); Platelet Count 229 10^3/uL (130-400); RBC 3.67 10^6/uL (3.93-5.22); RDW 13.2 % (11.7-14.6); WBC 8.72 10^3/uL (4.4-10.8)
--- NOTE | 2025-02-23 22:54 | W.PM.OBNL1 ---
Date of service: 02/23/25 Time of Service: 22:54 Pelvic Exam Dilation: 4 (exam done at 2035) Effacement (%): 90 station: -2 Cervix Position: mid Consistency: soft Contractions Monitor Mode: Palpation Contraction Frequency(min): q3-4 Contraction Duration(sec): 60-70 Intensity: Moderate Fetus A Monitor: Doppler Heart Rate Baseline: 130 FHR Rhythm: Regular Characteristics: Normal Decelerations: None (none heard during auscultation with contractions) Amniotic Membrane Status: Intact Assessment and Plan Assessment and plan (1) Normal labor: Status: Acute Assessment and plan: A: Pt moving around with labor, trying lots of different positions Currently in tub with partner, coping well, vocalizing with pains Intermittent auscultation has been reassuring,tolerating POfluid intake well P: Continue current plan of care Anticipate Objective Abnormal lab results 02/23/25 Range/Units 16:40 RBC 3.67 L (3.93-5.22) 10^6/uL Hct 35.0 L (36.0-46.0) % Temp Pulse Resp BP Pulse Ox 97.9 F 70 16 99/54 L 99 02/23/25 21:50 02/23/25 21:50 02/23/25 21:50 02/23/25 21:50 02/23/25 21:50 Laboratory Results WBC 8.72 10^3/uL (4.4-10.8) 02/23/25 16:40 RBC 3.67 10^6/uL (3.93-5.22) L 02/23/25 16:40 Hgb 11.7 g/dL (11.2-15.7) 02/23/25 16:40 Hct 35.0 % (36.0-46.0) L 02/23/25 16:40 MCV 95 fL (80-95) 02/23/25 16:40 MCH 31.9 pg (27.0-33.0) 02/23/25 16:40 MCHC 33.4 % (32.0-36.0) 02/23/25 16:40 RDW 13.2 % (11.7-14.6) 02/23/25 16:40 Plt Count 229 10^3/uL (130-400) 02/23/25 16:40 MPV 8.6 fL (8.0-11.0) 02/23/25 16:40 ABO/Rh A Positive 02/23/25 16:40 Antibody Screen NEGATIVE 02/23/25 16:40 Vital Signs Reviewed: Yes Subjective Interval history since last seen: Contractions becoming stronger and closer
[2025-02-24] VITALS (17 sets, daily range): BP systolic 105–133; BP diastolic 55–78; PULSE 65–171; RESP 16–17; TEMP 36.5–37; O2SAT 80–99
--- NOTE | 2025-02-24 00:38 | W.PM.OBNL1 ---
Date of service: 02/24/25 Time of Service: 00:39 Pelvic Exam Dilation: 7 Effacement (%): 90 station: -2 Cervix Position: mid Contractions Monitor Mode: Palpation Contraction Frequency(min): q2-3 Intensity: Moderate/Strong Fetus A Monitor: Doppler Heart Rate Baseline: 125 FHR Rhythm: Regular Characteristics: Normal Amniotic Membrane Status: Ruptured Rupture Method: Spontaneous Amniotic Fluid: Clear Amount: small Date of Membrane Rupture: 02/24/25 Time of Membrane Rupture: 00:32 Assessment and Plan Assessment and plan (1) Normal labor: Status: Acute Assessment and plan: A: Progress to 7/90% vtx -2m SROM clear fluid EFM tracing obtained and is category 1, returned to intermittent FHT Offered pain medication or anesthesia and pt declines Tolerating sips of water and juice P: Continue comfort measures as desired, FOB at bedside providing support Anticipate Subjective Interval history since last seen: strong and intense contractions, felt her water pop
[2025-02-24] MEDS: Oxytocin 10 UNITS/ML VIAL IM (01:24)
--- NOTE | 2025-02-24 01:38 | OBVDS_ITS ---
Date of service: 02/24/25 Time of Service: 01:38 OB Labor/ Delivery Information Baby A Delivery Delivery Method: Spontaneaous Presentation: Cephalic Cephalic Position: Vertex Vertex Position: Right Occipital Anterior Breech Position: N/A Cord Description-Baby A: 3 Vessels Amniotic Fluid: Clear Estimated Blood Loss: 300 Delivery Outcome: Liveborn Infant Transferred: Remains with Mother Note: Pt remained on the bed mostly hands and knees or sitting upright, began to feel rectal pressure, second stage huddle completed, FHT 120's without deceleration per intermittent checks. Pt requested something for pain and decided to try nitrous inhalant but did not find much relief, then stood up at the bedside going into full squat during contractions and spontaneously bore down to deliver the baby's head, CNM assisted with shoulders which delivered easily for of vigorous male infant. Pt sat down on pads and baby to mother's arms. She was then assisted onto the bed, perineal inspection reveals intact with bilateral periurethral abrasions which are superficial, not bleeding and not repaired. Cord clamped and cut by FOB at 6 minutes, pitocin 10 units IM given, cord blood collected and Deleon placenta delivered intact with 3VC. Fundus firm below umbilicus, minimal lochia after fundal massage though trickle persisted between massaging, misoprostel 600 mcg PO given. Strong family bonding observed, apgars 8/9, weight 3790 gms, circumcision is not planned. Providers Nurse Rn Prior Authorization: Kanchan Jaimes Nurse: Izzy Villanueva Nurse: Marycarmen Jaimes Labor/Delivery Information Number of Babies in Womb: 1 Steroids Given: None Reason Steroids Not Administered: N/A Group Beta Strep: Negative Antibiotics Administered: No Rubella Status: Nonimmune Blood Type: A+ Varicella Immunity: Immune Shoulder Dystocia: No Stages of Labor Onset of Labor Date: 02/23/25 Onset of Labor Time: 09:30 ROM Baby A: 02/24/25 ROM Baby A: 00:32 ROM Total Time- Baby A: [id number] Infant Delivery Date-Baby A: 02/24/25 Delivery Time-Baby A: 01:16 Placenta Delivery Date-Baby A: 02/24/25 Placenta Delivery Time-Baby A: 01:26 Labor-Stage 3 Duration: 10 minutes Total Length of Labor-Baby A: 15 hours and 46 minutes Placenta Status: Delivered Baby A Gender: Male Gestational Status: Term (39-41.6 wks) Gestational Age in Weeks/Days: 39 Weeks and 0 Days weight: 8 lb 5.688 oz Weight Comment: 3790 gms Score-1 Minute Interval(Baby A) Heart Rate-1 minute: 100 BPM or Greater Respiratory Effort- 1 minute: Spontaneous/Strong Cry Muscle Tone-1 minute: Active Movement Reflex Response-1 minute: Prompt Response Color-1 minute: Pallor or Cyanosis Total Score-1 minute: 8 Score-5 Minute Interval(Baby A) Heart Rate- 5 minute: 100 BPM or Greater Respiratory Effort-5 minute: Spontaneous/Strong Cry Muscle Tone-5 minute: Active Movement Reflex Response-5 minute: Prompt Response Color-5 minute: Bluish Hands or Feet Total Score- 5 minute: 9
[2025-02-24] MEDS: miSOPROStol 200 MCG TAB 600 MCG PO (01:48)
[2025-02-24] MEDS: Dibucaine 1% 28 GM TUBE TP (02:29)
[2025-02-24] MEDS: Hamamelis Leaf/Glycerin 100 EACH BOX PR (02:29)
[2025-02-24] MEDS: Acetaminophen 325 MG TAB 650 MG PO ×2 (02:36→07:12)
[2025-02-24] MEDS: Methylergonovine 0.2 MG/ML VIAL IM (04:22)
[2025-02-24] MEDS: Docusate Sodium 100 MG CAP PO (07:29)
[2025-02-25 08:10] VITALS: BP 105/66; PULSE 71; RESP 16; TEMP 36.9; O2SAT 97
[2025-02-25] MEDS: Docusate Sodium 100 MG CAP PO (08:15)
--- NOTE | 2025-02-25 11:33 | W.PM.OBDISCH ---
Date of service: 02/25/25 Time of Service: 11:33 DS: Diagnosis Discharge Diagnosis (1) Term of male : Status: Acute Asessment and Plan: Caring for baby independently. Pain is managed well with oral analgesics. Voiding without difficulty. well. Declines rubella vaccine A - stable mother and baby , Post day 1 P - Discharge to home today. Routine post instructions. [facility] Discharge Plan Disposition Patient Disposition: Home Condition: Good Discharge Details Reason For Visit: Term Labor Admit Date/Time: 02/23/25 16:30 Admit Provider: Kanchan Jaimes Attending Provider: Kanchan Jaimes Primary Care Provider: Unknown,Unknown Home Meds and New Rx's Prescriptions: No Action ferrous sulfate 325 mg (65 mg iron) tablet 325 mg PO QDAY Qty: 90 7RF Plus Vitamin-Mineral 27 mg iron- 1 mg tablet 1 tab PO DAILY Qty: 90 4RF Discharge Instructions Stand Alone Forms: BC Instructions, BC Post Vaginal Deliver Activity:: Activity as Tolerated Equipment/Supplies:: No Equipment Needed Diet:: As Tolerated Discharge Orders Discharge Orders: Discharge Order (Routine); Ordered 02/25/25 Ordered By: Dolores Hay OB:DS Summary Summary Vaginal Delivery Method: Spontaneaous Episiotomy Description: None Laceration Description: Periurethral Laceration Extension: N/A Contraception Discussed Contraception Discussed: Yes Contraceptive Plan: Foam/Condoms, [place] Gender-Baby A: Male weight: 8 lb 5.688 oz Status at Discharge Functional status at discharge: independent ambulation Overall status at discharge: patient is back to baseline Mental Status: mental status grossly normal Speech and Movement: speech and movement normal Mood: congruent mood Affect: normal affect Quality:SDOH Health Related Social Needs: No Data to Display Exam Physical Exam Vital signs: Temp Pulse Resp BP Pulse Ox 98.4 F 71 16 105/66 97 02/25/25 08:10 02/25/25 08:10 02/25/25 08:10 02/25/25 08:10 02/25/25 08:10 Vital Signs Reviewed: Yes Constitutional Constitutional: no acute distress HEENT Exam HEENT Exam: Normal Respiratory Exam Respiratory Exam: Normal Cardiovascular Exam Cardiovascular Exam: Normal Fundal Exam Fundus: Below Umbilicus and Firm Extremities Exam Extremity Exam: Normal Psychiatric Exam Psychiatric Exam: Normal PFSH All Active Problems (Updated 02/25/25 @ 11:35 by Dolores Hay CNM) Term of male (Acute) Medical History (Updated 02/25/25 @ 11:35 by Dolores Hay CNM) Vertigo Cystic fibrosis carrier partner also a carrier Pap smear abnormality of cervix ASCUS pap with HPV 2020 and colposcopy Female hirsutism Oligomenorrhea Polycystic ovarian syndrome Surgical History [place] teeth extracted Social History Smoking/Tobacco Use Status: Never Smoking risk assessment performed?: Yes Alcohol Intake: current Alcohol Intake frequency: a few times a month Alcohol type: wine Drug use: Never Household members: significant other, children and other Details: from daughter's father. Star BFx1yr. 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 Date GA/Weeks # Preg Succ Route Wgt Sex Labor Lgth Anesthesia Location [facility] 01/01/17 40 No Yes vaginal 6 lb 9 oz Female [facility] Delivery Date: 01/01/17 Last Updated by: Kanchan Jaimes Successful ECV to turn breech, nml labor/, Shaina DS: Data Vitals/I&O Vitals and I&O: Vital Signs Temperature 98.4 F 02/25/25 08:10 Temperature Source Oral 02/25/25 08:10 Pulse 71 02/25/25 08:10 Pulse Rhythm Regular 02/25/25 08:10 Respiratory Rate 16 02/25/25 08:10 Blood Pressure 105/66 02/25/25 08:10 Blood Pressure Mean 79 02/25/25 08:10 Pulse Oximetry 97 02/25/25 08:10 Oxygen Delivery Method Room Air 02/23/25 16:39 Oxygen Flow Rate 0 02/23/25 16:39 Pain Level 2 02/25/25 08:10 Comment Patient laying hands and knees over cub. 02/23/25 21:50 Intake & Output 02/24/25 02/24/25 02/25/25 11:59 23:59 11:59 Output Total 900 / 900 Balance -900 / -900 Output: Urine 900 / 900
[2025-02-26 02:27] VITALS: BP 126/73; PULSE 115
== END 2025-02-25 11:45 | disposition home or self-care (01) | DRG 807 ==
PROVIDERS: Admitting Provider Advanced Practice Midwife; Visit Provider Advanced Practice Midwife
DX: O75.89 Other specified complications of labor and delivery (principal); Z37.0 Single live birth; Z14.1 Cystic fibrosis carrier; Z3A.39 39 weeks gestation of pregnancy; O99.284 Endocrine, nutritional and metabolic diseases complicating childbirth; E28.2 Polycystic ovarian syndrome
CPT/HCPCS: 85027; 86850; 86900; 86901; J2210; J2590